=== PATIENT | female | born 1955 | race Caucasian/White ===

== ENCOUNTER → 2020-01-09 | Outpatient (CLI) | payer OTHER ==
--- NOTE | 2020-01-09 12:52 | Diagnostic Imaging Report ---
INDICATION: Cough and congestion. PA and lateral views of the chest were obtained. No prior examinations are available for comparison. FINDINGS: There is cardiomegaly. There is a small hiatal hernia. There is no pleural effusion, pneumothorax, or pneumonia. Mediastinum is unremarkable. There is moderate thoracic spondylosis. IMPRESSION: No acute cardiopulmonary abnormality. Cardiomegaly. Small hiatal hernia. Dictated by: Dictated on workstation # [id number]
== END ==
LOC: RAD FS 12:37
PROVIDERS: ATTEND Nurse Practitioner Family
DX: I51.7 Cardiomegaly (principal); K44.9 Diaphragmatic hernia without obstruction or gangrene; R09.89 Other specified symptoms and signs involving the circulatory and respiratory systems
CPT/HCPCS: 71046

== ENCOUNTER → 2020-02-08 | Outpatient (CLI) | payer OTHER | LOC: CARD 13:20 | PROVIDERS: ATTEND Nurse Practitioner Family | DX: I51.7 Cardiomegaly (principal); I35.0 Nonrheumatic aortic (valve) stenosis | CPT/HCPCS: 93306 ==

== ENCOUNTER 2020-11-02 15:09 | Inpatient (IN) | payer OTHER ==
[~2020-11-02] VITALS: Ht 170 cm; Wt 93.8 kg
--- NOTE | 2020-11-02 15:47 | ED Respiratory ---
General Chief Complaint: Respiratory Problems Stated Complaint: COVID+, LOW O2 STATS Source: patient Exam Limitations: no limitations History of Present Illness Date Seen by Provider: Nov 02, 2020 Time Seen by Provider: 15:30 Initial Comments Patient is a 65-year-old female who presents to the emergency department today with a chief complaint of cough and shortness of breath. Patient has a history of recent diagnosis of coronavirus. Patient states she tested positive this morning. Patient states she has had symptoms for approximately a week to 2 weeks. Patient is short of breath primarily with activity. She has not had fevers or chills. Denies loss of taste or smell. Denies sore throat runny nose congestion. Has had mild cough. Denies any other GI or symptoms. All other review of systems reviewed and negative except as stated. Timing/Duration: week, getting worse Severity: moderate Prior Episodes/Possible Cause: illness exposure Modifying Factors: Worse With Coughing; Improves With Rest Associated Symptoms: cough Allergies and Home Medications Allergies Coded Allergies: No Known Drug Allergies (Unverified , 11/02/20) Home Medications Atorvastatin Calcium 40 Mg Tablet, 40 MG PO DAILY, (Reported) Azithromycin 250 Mg Tablet, 250 MG PO UD, (Reported) TAKE 2 TABLETS ON DAY ONE THEN TAKE 1 TABLET DAILY FOR FOUR MORE DAYS Dexamethasone 6 Mg Tablet, 6 MG PO DAILY, (Reported) Esomeprazole Magnesium 20 Mg Capsule.dr, 20 MG PO DAILY, (Reported) Glipizide 5 Mg Tablet, 5 MG PO BID, (Reported) Levothyroxine Sodium 125 Mcg Capsule, 125 MCG PO DAILY, (Reported) Metformin HCl 1,000 Mg Tablet, 1,000 MG PO TIDWM, (Reported) Pregabalin 50 Mg Capsule, 50 MG PO DAILY, (Reported) Ropinirole HCl 1 Mg Tablet, 3 MG PO HS, (Reported) Patient Home Medication List Home Medication List Reviewed: Yes Review of Systems Review of Systems Constitutional: see HPI; No fever EENTM: No nose congestion, No throat pain Respiratory: cough, short of breath Cardiovascular: no symptoms reported Gastrointestinal: no symptoms reported Genitourinary: no symptoms reported Musculoskeletal: no symptoms reported Skin: no symptoms reported All Other Systems Reviewed Negative Unless Noted: Yes Physical Exam Vital Signs - First Documented 11/02/20 15:35 Temp 38.1 Pulse 125 Resp 28 B/P (MAP) 143/94 (110) Capillary Refill : Height: '" Weight: lbs. oz. kg; BMI Method: General Appearance: WD/WN, no apparent distress Eyes: Bilateral Eye Normal Inspection, Bilateral Eye PERRL, Bilateral Eye EOMI HEENT: pharynx normal Neck: full range of motion Respiratory: lungs clear, normal breath sounds, no respiratory distress, other (Slightly diminished breath sounds at the bases, patient's oxygen saturations 87 to 90% on room air) Cardiovascular: regular rate, rhythm, no murmur Gastrointestinal: normal bowel sounds, non tender, soft Neurologic/Psychiatric: alert, normal mood/affect, oriented x 3 Skin: normal color, warm/dry Focused Exam Lactate Level 11/02/20 15:50: Lactic Acid Level 1.78 Lactic Acid Level Laboratory Tests Test 11/02/20 15:50 Lactic Acid Level 1.78 MMOL/L (0.50-2.00) Progress/Results/Core Measures Suspected Sepsis SIRS Temperature: Pulse: Respiratory Rate: Laboratory Tests 11/02/20 15:50: White Blood Count 6.5 Blood Pressure / Mean: 11/02/20 15:50: Lactic Acid Level 1.78 Laboratory Tests 11/02/20 15:50: Creatinine 0.86, Platelet Count 263 Results/Orders Lab Results Laboratory Tests Test 11/02/20 15:50 Range/Units White Blood Count 6.5 4.3-11.0 10^3/uL Red Blood Count 4.77 3.80-5.11 10^6/uL Hemoglobin 12.3 11.5-16.0 g/dL Hematocrit 39 35-52 % Mean Corpuscular Volume 81 80-99 fL Mean Corpuscular Hemoglobin 26 25-34 pg Mean Corpuscular Hemoglobin Concent 32 32-36 g/dL Red Cell Distribution Width 14.6 H 10.0-14.5 % Platelet Count 263 130-400 10^3/uL Mean Platelet Volume 10.0 9.0-12.2 fL Immature Granulocyte % (Auto) 2 % Neutrophils (%) (Auto) 88 H 42-75 % Lymphocytes (%) (Auto) 6 L 12-44 % Monocytes (%) (Auto) 4 0-12 % Eosinophils (%) (Auto) 0 0-10 % Basophils (%) (Auto) 0 0-10 % Neutrophils # (Auto) 5.7 1.8-7.8 10^3/uL Lymphocytes # (Auto) 0.4 L 1.0-4.0 10^3/uL Monocytes # (Auto) 0.3 0.0-1.0 10^3/uL Eosinophils # (Auto) 0.0 0.0-0.3 10^3/uL Basophils # (Auto) 0.0 0.0-0.1 10^3/uL Immature Granulocyte # (Auto) 0.1 0.0-0.1 10^3/uL Neutrophils % (Manual) 97 % Lymphocytes % (Manual) 1 % Monocytes % (Manual) 2 % Eosinophils % (Manual) 0 % Basophils % (Manual) 0 % Band Neutrophils 0 % Blood Morphology Comment NORMAL D-Dimer < 0.27 0.00-0.49 UG/ML Sodium Level 131 L 135-145 MMOL/L Potassium Level 4.1 3.6-5.0 MMOL/L Chloride Level 99 98-107 MMOL/L Carbon Dioxide Level 20 L 21-32 MMOL/L Anion Gap 12 5-14 MMOL/L Blood Urea Nitrogen 15 7-18 MG/DL Creatinine 0.86 0.60-1.30 MG/DL Estimat Glomerular Filtration Rate > 60 BUN/Creatinine Ratio 17 Glucose Level 462 *H 70-105 MG/DL Lactic Acid Level 1.78 0.50-2.00 MMOL/L Calcium Level 7.8 L 8.5-10.1 MG/DL C-Reactive Protein High Sensitivity 1.31 H 0.00-0.50 MG/DL Procalcitonin 0.04 <0.10 NG/ML Micro Results Microbiology 11/02/20 Blood Culture - Preliminary, Resulted No growth 11/02/20 Blood Culture - Preliminary, Resulted No growth My Orders Orders - FELIBERTO HERNÁNDEZ MD Ed Iv/Invasive Line Start (11/02/20 15:48) Cbc With Automated Diff (11/02/20 15:48) Basic Metabolic Panel (11/02/20 15:48) Hs C Reactive Protein (11/02/20 15:48) Fibrin Degradation Products (11/02/20 15:48) Procalcitonin (Pct) (11/02/20 15:48) Chest 1 View, Ap/Pa Only (11/02/20 15:48) Blood Culture (11/02/20 15:48) Lactic Acid Analyzer (11/02/20 15:48) Blood Culture (11/02/20 16:10) Manual Differential (11/02/20 15:50) Ns Iv 1000 Ml (Sodium Chloride 0.9%) (11/02/20 17:15) Vital Signs/I&O 11/02/20 15:35 Temp 38.1 Pulse 125 Resp 28 B/P (MAP) 143/94 (110) Capillary Refill : Progress Note : Time: 16:37 Progress Note Reevaluated, she is satting 92 to 93% on 2 L of oxygen per nasal cannula. She looks well. She became quite dyspneic when she got up to go to the bathroom dropping her sats to 83%. Chest x-ray is consistent with patchy bilateral infiltrates, pneumonia. Labs so far have been within normal limits. Diagnostic Imaging Diagonstic Imaging: Xray Plain Films/CT/US/NM/MRI: chest Comments [facility], [facility]. [place], [place] NAME: ADRIÁN AMARO [facility] REC#: [id number] PT STATUS: REG ER : 1955 PHYSICIAN: FELIBERTO HERNÁNDEZ MD ADMIT DATE: 11/02/20/ER Draft Date of Exam:11/02/20 CHEST 1 VIEW, AP/PA ONLY INDICATION: COVID-positive patient with increasing shortness of breath. TECHNIQUE: Frontal chest obtained at 04:07 p.m. and compared to 01/09/2020. FINDINGS: Heart is mildly enlarged. There are patchy infiltrates in both lungs, suspicious for COVID pneumonia. There is no pneumothorax or pleural fluid collection. IMPRESSION: Patchy infiltrates are seen in both lungs, right worse than left, suspicious for COVID pneumonia. There is no pneumothorax or pleural fluid. There is cardiomegaly. Dictated on workstation # [id number] Dict: 11/02/20 1606 Trans: 11/02/20 1614 [id number] [id number] Interpreted by: MOOSE TAYLOR MD Electronically signed by: Departure Communication (Admissions) Time/Spoke to Admitting Phy: 17:[address] Monk, will accept patient to medical floor Impression Primary Impression: COVID-19 Additional Impressions: Pneumonia Qualified Codes: J18.9 - Pneumonia, unspecified organism Hypoxia Disposition: ADMITTED INPATIENT Condition: Stable Admissions Decision to Admit Reason: Admit from ER (General) Decision to Admit/Date: Nov 02, 2020 Time/Decision to Admit Time: 17:08 Departure-Patient Inst. Referrals: [facility] (PCP) Primary Care Physician KIRSTIE ESCALANTE APRN (Family) Primary Care Physician FELIBERTO HERNÁNDEZ MD Nov 02, 2020 15:47
[2020-11-02 16:10] LABS: BASOPHILS % (AUTO) 0 % (0-10); EOSINOPHILS % (AUTO) 0 % (0-10); HEMATOCRIT 39 % (35-52); HEMOGLOBIN 12.3 g/dL (11.5-16.0); LYMPHOCYTES # (AUTO) 0.4 10^3/uL (1.0-4.0); LYMPHOCYTES % (AUTO) 6 % (12-44); MEAN CORPUSCULAR HEMOGLOBIN 26 pg (25-34); MEAN CORPUSCULAR HGB CONC 32 g/dL (32-36); MEAN CORPUSCULAR VOLUME 81 fL (80-99); MONOCYTES # (AUTO) 0.3 10^3/uL (0.0-1.0); MONOCYTES % (AUTO) 4 % (0-12); NEUTROPHILS # (AUTO) 5.7 10^3/uL (1.8-7.8); NEUTROPHILS % (AUTO) 88 % (42-75); PLATELET COUNT 263 10^3/uL (130-400); WHITE BLOOD COUNT 6.5 10^3/uL (4.3-11.0)
--- NOTE | 2020-11-02 16:10 | NUR ---
O2 SAT DOWN TO 83% ON RA WHEN UP TO BATHROOM
--- NOTE | 2020-11-02 16:15 | Diagnostic Imaging Report ---
INDICATION: COVID-positive patient with increasing shortness of breath. TECHNIQUE: Frontal chest obtained at 04:07 p.m. and compared to 01/09/2020. FINDINGS: Heart is mildly enlarged. There are patchy infiltrates in both lungs, suspicious for COVID pneumonia. There is no pneumothorax or pleural fluid collection. IMPRESSION: Patchy infiltrates are seen in both lungs, right worse than left, suspicious for COVID pneumonia. There is no pneumothorax or pleural fluid. There is cardiomegaly. Dictated by: Dictated on workstation # [id number]
[2020-11-02 16:19] LABS: CHLORIDE 99 MMOL/L (98-107); POTASSIUM 4.1 MMOL/L (3.6-5.0); SODIUM 131 MMOL/L (135-145)
[2020-11-02 16:21] LABS: CALCIUM 7.8 MG/DL (8.5-10.1)
[2020-11-02 16:23] LABS: CARBON DIOXIDE 20 MMOL/L (21-32)
[2020-11-02 16:25] LABS: CREATININE SERUM 0.86 MG/DL (0.60-1.30); GFR ESTIMATED > 60
[2020-11-02 16:26] LABS: BUN/CREATININE RATIO 17
[2020-11-02 16:29] LABS: GLUCOSE 462 MG/DL (70-105)
[2020-11-02 16:30] LABS: BAND NEUTROPHILS 0 %; BASOPHILS % (MANUAL) 0 %; EOSINOPHILS % (MANUAL) 0 %; LYMPHOCYTES % (MANUAL) 1 %; MONOCYTES % (MANUAL) 2 %; NEUTROPHILS % (MANUAL) 97 %; RBC MORPH NORMAL
[2020-11-02] MEDS ORDERED: ACETAMINOPHEN 325 MG TABLET PO PRN (17:15)
[2020-11-02] MEDS ORDERED: REMDESIVIR INJ 200 MG in NS (IVPB) 210 ML IV ONE (17:15)
[2020-11-02] MEDS ORDERED: ONDANSETRON 4 MG/5 ML ORAL SOLN (ZOFRAN) 5 ML PO PRN (17:15)
[2020-11-02] MEDS: NS IV 1000 ML 1,000 ML IV SCH (17:28)
[2020-11-02 18:37] VITALS: BP 140/81
--- NOTE | 2020-11-02 18:37 | NUR ---
PT ADMITTED TO ROOM 424 AT THIS TIME. 95% ON 3LNC. ORIENTED PT TO ROOM
[2020-11-02] MEDS: guaiFENesin SYRUP 100 MG/5 ML 10 ML (ROBITUSSIN SF) PO SCH ×2 (19:02→21:58)
[2020-11-02] MEDS: ENOXAPARIN 40 MG/0.4 ML (LOVENOX) SYR SC SCH (19:02)
[2020-11-02 19:20] VITALS: BP 140/81
[2020-11-02 20:00] VITALS: BP 117/64
[2020-11-02] MEDS: inSUlin ASPART (NovoLOG) 1 UNIT/0.01 ML (CHARGE PER UNIT) SC SCH (21:42)
[2020-11-02] MEDS ORDERED: RT-ALBUTEROL INHALER HFA (VENTOLIN HFA) 18 GM IH PRN (22:00)
[2020-11-02] MEDS: RT-ALBUTEROL INHALER HFA (VENTOLIN HFA) 18 GM IH SCH (22:40)
[2020-11-02 23:21] VITALS: BP 128/64
[2020-11-03] MEDS: guaiFENesin SYRUP 100 MG/5 ML 10 ML (ROBITUSSIN SF) PO SCH ×6 (00:30→21:15)
[2020-11-03] MEDS: RT-ALBUTEROL INHALER HFA (VENTOLIN HFA) 18 GM IH SCH ×6 (02:15→21:16)
[2020-11-03 04:27] VITALS: BP 154/81
[2020-11-03] MEDS: NS IV 1000 ML 1,000 ML IV SCH ×2 (04:30→13:15)
[2020-11-03] MEDS ORDERED: METF-399 PO (05:13)
[2020-11-03] MEDS ORDERED: DEXA6TAB PO (05:13)
[2020-11-03] MEDS ORDERED: ESOM20CA37 PO (05:13)
[2020-11-03] MEDS ORDERED: LEVO125C4 PO (05:13)
[2020-11-03] MEDS ORDERED: ATOR40TA70 PO (05:13)
[2020-11-03] MEDS ORDERED: AZIT250T12 PO (05:13)
[2020-11-03] MEDS ORDERED: ROPI1TAB PO (05:13)
[2020-11-03] MEDS ORDERED: GLIP5TAB13 PO (05:13)
[2020-11-03] MEDS ORDERED: PREG50CA65 PO (05:13)
[2020-11-03 05:42] LABS: ALBUMIN 3.3 GM/DL (3.2-4.5); CHLORIDE 100 MMOL/L (98-107); POTASSIUM 3.6 MMOL/L (3.6-5.0); SODIUM 133 MMOL/L (135-145)
[2020-11-03 05:43] LABS: CALCIUM 8.2 MG/DL (8.5-10.1)
[2020-11-03 05:44] LABS: GLUCOSE 260 MG/DL (70-105); TOTAL PROTEIN 5.7 GM/DL (6.4-8.2)
[2020-11-03 05:46] LABS: BILIRUBIN,TOTAL 0.5 MG/DL (0.1-1.0); CARBON DIOXIDE 23 MMOL/L (21-32)
[2020-11-03 05:48] LABS: ALKALINE PHOSPHATASE 65 U/L (40-136); CREATININE SERUM 0.78 MG/DL (0.60-1.30); GFR ESTIMATED > 60
[2020-11-03 05:49] LABS: BUN/CREATININE RATIO 14
[2020-11-03 05:51] LABS: ALANINE AMINOTRANSFERASE 29 U/L (0-55)
[2020-11-03] MEDS: inSUlin ASPART (NovoLOG) 1 UNIT/0.01 ML (CHARGE PER UNIT) SC SCH ×3 (06:11→21:15)
[2020-11-03 08:25] VITALS: BP 128/60
[2020-11-03] MEDS: dexAMETHasone 6 MG TAB (DECADRON) PO SCH (08:31)
[2020-11-03 11:20] VITALS: BP 138/67
[2020-11-03] MEDS ORDERED: inSUlin ASPART (NovoLOG) 1 UNIT/0.01 ML (CHARGE PER UNIT) SC SCH (15:45)
--- NOTE | 2020-11-03 15:49 | History & Physical-Hospitalist ---
History of Present Illness HPI/Chief Complaint Amber Merlos is a 65-year-old female with past medical history of type II diabetes mellitus, hyperlipidemia, hypothyroidism, restless leg syndrome, GERD, obesity, who presented with shortness of breath. She had been diagnosed with COVID this past week with her symptoms starting about a week ago. She reports cough. She is not having fevers. She is not having chest pain. She is not having diarrhea. She denies any abdominal pain, nausea, or vomiting. We discussed treatments for COVID and she stated "I don't want to be on any experimental drugs." She declines a Remdesivir and convalescent plasma. Source: patient Exam Limitations: no limitations Date Seen 11/03/20 Time Seen by a Provider: 11:55 Attending Physician Tosin George MD [facility] Referring Physician Date of Admission Nov 02, 2020 at 17:10 Home Medications & Allergies Home Medications Reviewed patient Home Medication Reconciliation performed by pharmacy medication reconciliations software validation technician and/or nursing. Patients Allergies have been reviewed. Allergies Allergies Coded Allergies No Known Drug Allergies (Qqrmvmcray23/11/20) Past Kyelsfw-Ndphji-Weqhpv Hx Past Med/Social Hx: Reviewed Nursing Past Med/Soc Hx Patient Social History Alcohol Use: Denies Use Recreational Drug Use: No Smoking Status: Former Smoker Recent Foreign Travel: No Contact w/other who traveled: No Recent Hopitalizations: No Recent Infectious Disease Expo: Yes (AROUND DAUGHTER WEEK BEFORE DAUGHTER TESTED + COVID 3 WEEKS AGO) Immunizations Up To Date Date of Pneumonia Vaccine: Jun 23, 2020 Date of Influenza Vaccine: Sep 05, 2020 Seasonal Allergies Seasonal Allergies: Yes Past Medical History Surgeries: Hysterectomy Cardiac: Hypertension Gastrointestinal: Gastroesophageal Reflux Endocrine: Hypothyroidsim, Diabetes, Non-Insulin dep Review of Systems Constitutional: malaise EENTM: no symptoms reported Respiratory: cough, short of breath Cardiovascular: no symptoms reported Gastrointestinal: no symptoms reported Genitourinary: no symptoms reported Musculoskeletal: no symptoms reported Skin: no symptoms reported Psychiatric/Neurological: No Symptoms Reported Physical Exam Physical Exam Vital Signs Vital Signs - First Documented 11/02/20 11/02/20 11/02/20 15:35 18:14 18:37 Temp 38.1 Pulse 125 Resp 28 B/P (MAP) 143/94 (110) Pulse Ox 93 O2 Delivery Nasal Cannula O2 Flow Rate 3.00 Capillary Refill : Less Than 3 SecondsLess Than 3 Seconds Height, Weight, BMI Height: '" Weight: lbs. oz. kg; 32.45 BMI Method: General Appearance: No Apparent Distress, Obese HEENT: PERRL/EOMI, Pharynx Normal Neck: Normal Inspection, Supple Respiratory: Lungs Clear, Normal Breath Sounds, No Respiratory Distress Cardiovascular: Regular Rate, Rhythm, No Edema, No Murmur Gastrointestinal: Normal Bowel Sounds, Non Tender, Soft Extremity: Normal Inspection, Non Tender, No Pedal Edema Neurologic/Psychiatric: Alert, Oriented x3, No Motor/Sensory Deficits, Normal Mood/Affect Results Results/Procedures Labs Laboratory Tests 11/02/20 15:50 11/03/20 05:20 Patient resulted labs reviewed. Imaging: Reviewed Imaging Report Assessment/Plan Admission Diagnosis acute respiratory failure due to COVID-19 Admission Status: Inpatient Order (span 2 midnights) Reason for Inpatient Admission: Respiratory failure requiring supplemental oxygen Assessment and Plan Acute respiratory failure due to COVID-19 COVID positive at outside facility Obtain flu swab Chest x-ray with patchy bilateral infiltrates Procalcitonin within normal limits, antibiotics not indicated D-dimer negative, prophylactic Lovenox ordered Started on Decadron Patient declines Remdesivir Patient declines convalescent plasma T2DM Steroid induced hyperglycemia Levemir Sliding scale insulin HLD Hypothyroidism Restless legs syndrome GERD Continue home meds Obesity Clinically significant, no acute management needs DVT Prophylaxis: Lovenox Diagnosis/Problems Diagnosis/Problems (1) Acute respiratory failure due to COVID-19 Status: Acute (2) Pneumonia due to COVID-19 virus Status: Acute (3) T2DM (type 2 diabetes mellitus) Status: Chronic (4) Steroid-induced hyperglycemia Status: Acute (5) HLD (hyperlipidemia) Status: Chronic (6) GERD (gastroesophageal reflux disease) Status: Chronic (7) RLS (restless legs syndrome) Status: Chronic (8) Hypothyroidism Status: Chronic (9) Obesity Status: Chronic Clinical Quality Measures DVT/VTE Risk/Contraindication: Risk Factor Score Per Nursin RFS Level Per Nursing on Admit: 3=High TOSIN GEORGE MD Nov 03, 2020 15:49
[2020-11-03 15:50] VITALS: BP 125/77
[2020-11-03] MEDS: ENOXAPARIN 40 MG/0.4 ML (LOVENOX) SYR SC SCH (17:05)
[2020-11-03] MEDS ORDERED: REMDESIVIR INJ 100 MG in NS (IVPB) 230 ML IV SCH (17:15)
[2020-11-03 19:49] VITALS: BP 127/66
[2020-11-03] MEDS: rOPINIRole 1 MG (REQUIP) TABLET PO SCH (21:15)
[2020-11-03 23:35] VITALS: BP 135/69
--- NOTE | 2020-11-04 | NUR ---
O2 sats around 82% at this time on 5L Hi-wendy NC. O2 increased to 7L and pt encouraged to prone at this time. Will continue to monitor.
[2020-11-04] MEDS: guaiFENesin SYRUP 100 MG/5 ML 10 ML (ROBITUSSIN SF) PO SCH ×7 (01:25→20:41)
[2020-11-04] MEDS: RT-ALBUTEROL INHALER HFA (VENTOLIN HFA) 18 GM IH SCH ×6 (02:07→20:43)
[2020-11-04 04:00] VITALS: BP 145/74
[2020-11-04] MEDS: LEVOTHYROXINE 125 MCG (LEVOTHROID) TABLET PO SCH (05:35)
[2020-11-04] MEDS: inSUlin ASPART (NovoLOG) 1 UNIT/0.01 ML (CHARGE PER UNIT) SC SCH ×4 (05:50→20:41)
[2020-11-04 05:58] LABS: ALBUMIN 3.5 GM/DL (3.2-4.5)
[2020-11-04 05:59] LABS: CHLORIDE 98 MMOL/L (98-107); POTASSIUM 3.7 MMOL/L (3.6-5.0); SODIUM 136 MMOL/L (135-145)
[2020-11-04 06:00] LABS: CALCIUM 8.6 MG/DL (8.5-10.1)
[2020-11-04 06:01] LABS: GLUCOSE 188 MG/DL (70-105); TOTAL PROTEIN 6.2 GM/DL (6.4-8.2)
[2020-11-04 06:02] LABS: CARBON DIOXIDE 23 MMOL/L (21-32)
[2020-11-04 06:03] LABS: BILIRUBIN,TOTAL 0.6 MG/DL (0.1-1.0)
[2020-11-04 06:04] LABS: ALKALINE PHOSPHATASE 61 U/L (40-136); CREATININE SERUM 0.77 MG/DL (0.60-1.30); GFR ESTIMATED > 60
[2020-11-04 06:06] LABS: BUN/CREATININE RATIO 14
[2020-11-04 06:07] LABS: ALANINE AMINOTRANSFERASE 29 U/L (0-55)
[2020-11-04 08:00] VITALS: BP 117/75
[2020-11-04] MEDS: PREGABALIN 50 MG (LYRICA) CAP PO SCH (08:22)
[2020-11-04] MEDS: dexAMETHasone 6 MG TAB (DECADRON) PO SCH (08:22)
[2020-11-04] MEDS: PANTOPRAZOLE 20 MG TABLET (PROTONIX) PO SCH (08:22)
--- NOTE | 2020-11-04 08:30 | NUR ---
O2 SATS MID TO UPPER 80'S. O2 INCREASED TO 12 L WITH LITTLE IMPROVEMENT. RT AND DR. GEORGE NOTIFIED. VAPOTHERM STARTED AT 40L AND 100%. TRANSFERRED TO ROOM 401 FOR NEGATIVE PRESSURE ROOM.
--- NOTE | 2020-11-04 09:30 | NUR ---
STATES FEELING AND BREATHING MUCH BETTER NOW. UP IN CHAIR.
[2020-11-04 11:32] VITALS: BP 147/89
--- NOTE | 2020-11-04 12:00 | NUR ---
DR. GEORGE HERE TO SEE PATIENT. HE LOWERED VAPOTHERM READINGS TO 35L AND 90%. O2 SAT DOWN UPPER 80'S WHEN TALKING ON PHONE, BUT RECUPERATED AFTER REST. SATS STAYING LOW 90'S.
--- NOTE | 2020-11-04 12:15 | NUR ---
PATIENT NOW AGREEABLE TO HAVE PLASMA AND REMDESIVIR.
[2020-11-04] MEDS ORDERED: REMDESIVIR INJ 100 MG in NS (IVPB) 230 ML IV SCH (12:45)
--- NOTE | 2020-11-04 12:53 | Progress Note - Hospitalist ---
Subjective HPI/CC On Admission Date Seen by Provider: Nov 04, 2020 Time Seen by Provider: 11:10 Amber Merlos is a 65-year-old female with past medical history of type II diabetes mellitus, hyperlipidemia, hypothyroidism, restless leg syndrome, GERD, obesity, who presented with shortness of breath. She had been diagnosed with C OVID this past week with her symptoms starting about a week ago. She reports cough. She is not having fevers. She is not having chest pain. She is not having diarrhea. She denies any abdominal pain, nausea, or vomiting. We discussed treatments for COVID and she stated "I don't want to be on any experimental drugs." She declines a Remdesivir and convalescent plasma. Subjective/Events-last exam she had a difficult night. She was very short of breath. She is anxious this morning. She is tearful. She asks about convalescent plasma and other treatments. She has no other complaints or concerns. Focused Exam Lactate Level 11/02/20 15:50: Lactic Acid Level 1.78 Objective Exam Vital Signs Vital Signs Date Time Temp Pulse Resp B/P (MAP) Pulse Ox O2 Delivery O2 Flow Rate FiO2 11/04/20 12:22 90 11/04/20 12:06 91 Vapotherm 35.00 90.00 11/04/20 11:32 36.4 20 147/89 (108) 11/04/20 08:48 100 Capillary Refill : Less Than 3 SecondsLess Than 3 Seconds General Appearance: Anxious, Obese Respiratory: Lungs Clear, Normal Breath Sounds, No Respiratory Distress Cardiovascular: No Murmur, Tachycardia Gastrointestinal: Normal Bowel Sounds, Non Tender, Soft Extremity: Normal Inspection, Non Tender, No Pedal Edema Neurologic/Psychiatric: Alert, No Motor/Sensory Deficits Skin: Normal Color, Warm/Dry Results/Procedures Lab Laboratory Tests 11/04/20 05:05 Patient resulted labs reviewed. Imaging: Reviewed Imaging Report Assessment/Plan Assessment and Plan Assess & Plan/Chief Complaint Acute respiratory failure due to COVID-19 COVID positive at outside facility Flu negative Chest x-ray with patchy bilateral infiltrates Procalcitonin within normal limits x2 D-dimer negative, prophylactic Lovenox ordered Blood cultures with no growth to date Check ABG Continue Decadron Patient agrees to resume Remdesivir Convalescent plasma ordered Begin Cefepime to cover for possible developing bacterial pneumonia Rapidly worsening hypoxia, may require ICU transfer if continues to progress Discussed goals of care, would agree to short term ventilation Offered to call and discuss with family, patient deferred T2DM Steroid induced hyperglycemia Increase Levemir Sliding scale insulin HLD Hypothyroidism Restless legs syndrome GERD Continue home meds Obesity Clinically significant, no acute management needs DVT Prophylaxis: Lovenox Diagnosis/Problems Diagnosis/Problems (1) Acute respiratory failure due to COVID-19 Status: Acute (2) Pneumonia due to COVID-19 virus Status: Acute (3) T2DM (type 2 diabetes mellitus) Status: Chronic (4) Steroid-induced hyperglycemia Status: Acute (5) HLD (hyperlipidemia) Status: Chronic (6) GERD (gastroesophageal reflux disease) Status: Chronic (7) RLS (restless legs syndrome) Status: Chronic (8) Hypothyroidism Status: Chronic (9) Obesity Status: Chronic Clinical Quality Measures DVT/VTE Risk/Contraindication: Risk Factor Score Per Nursin RFS Level Per Nursing on Admit: 3=High SILVER GEORGE MD Nov 04, 2020 12:53
[2020-11-04 13:19] LABS: ABG OXYGEN SATURATION 94 % (94-100); ABG PCO2 34 MMHG (35-45); ABG PH 7.45 (7.37-7.43); ABG PO2 67 MMHG (79-93); ABG TCO2 24.6 MMOL/L (21.0-31.0)
[2020-11-04 13:21] LABS: ALLENS TEST YES-POS; INSPIRED O2 35; PATIENT TEMP 36.4; VENTILATOR NO
--- NOTE | 2020-11-04 13:30 | NUR ---
DR. GEORGE INFORMED OF ABG RESULTS. NO NEW ORDERS.
[2020-11-04] MEDS ORDERED: rOPINIRole 1 MG (REQUIP) TABLET PO ONE (13:45)
[2020-11-04] MEDS: NS IV 500 ML 500 ML IV SCH (15:00)
[2020-11-04] MEDS ORDERED: REMDESIVIR INJ 200 MG in NS (IVPB) 210 ML IV ONE (15:30)
[2020-11-04 15:56] VITALS: BP 128/77
[2020-11-04] MEDS: ENOXAPARIN 40 MG/0.4 ML (LOVENOX) SYR SC SCH (16:34)
--- NOTE | 2020-11-04 17:28 | NUR ---
ORIN IN BLOOD BANK STATES PLASMA MAY BE READY TOMORROW FOR TRANSFUSION. PATIENT NAPPING AND SAT 97%.
[2020-11-04 20:30] VITALS: BP 145/78
[2020-11-04] MEDS: CEFEPIME INJECTION 2,000 MG in WATER (STERILE) FOR INJECTION 20 ML IV SCH (20:42)
[2020-11-04] MEDS: rOPINIRole 1 MG (REQUIP) TABLET PO SCH (20:42)
[2020-11-04 23:43] VITALS: BP 141/68
[2020-11-05] VITALS (9 sets, daily range): BP systolic 115–128; BP diastolic 69–83
[2020-11-05] MEDS: RT-ALBUTEROL INHALER HFA (VENTOLIN HFA) 18 GM IH SCH ×5 (01:45→21:33)
[2020-11-05] MEDS: guaiFENesin SYRUP 100 MG/5 ML 10 ML (ROBITUSSIN SF) PO SCH ×6 (01:45→20:44)
[2020-11-05 05:21] LABS: BASOPHILS % (AUTO) 0 % (0-10); EOSINOPHILS % (AUTO) 0 % (0-10); HEMATOCRIT 38 % (35-52); HEMOGLOBIN 11.9 g/dL (11.5-16.0); LYMPHOCYTES # (AUTO) 0.9 10^3/uL (1.0-4.0); LYMPHOCYTES % (AUTO) 11 % (12-44); MEAN CORPUSCULAR HEMOGLOBIN 26 pg (25-34); MEAN CORPUSCULAR HGB CONC 31 g/dL (32-36); MEAN CORPUSCULAR VOLUME 82 fL (80-99); MONOCYTES # (AUTO) 0.5 10^3/uL (0.0-1.0); MONOCYTES % (AUTO) 6 % (0-12); NEUTROPHILS # (AUTO) 6.6 10^3/uL (1.8-7.8); NEUTROPHILS % (AUTO) 82 % (42-75); PLATELET COUNT 256 10^3/uL (130-400)
[2020-11-05 05:39] LABS: ALBUMIN 3.4 GM/DL (3.2-4.5)
[2020-11-05 05:40] LABS: CHLORIDE 102 MMOL/L (98-107); POTASSIUM 3.9 MMOL/L (3.6-5.0); SODIUM 139 MMOL/L (135-145)
[2020-11-05 05:41] LABS: CALCIUM 8.8 MG/DL (8.5-10.1)
[2020-11-05 05:42] LABS: GLUCOSE 155 MG/DL (70-105); TOTAL PROTEIN 6.3 GM/DL (6.4-8.2)
[2020-11-05 05:43] LABS: CARBON DIOXIDE 24 MMOL/L (21-32)
[2020-11-05 05:44] LABS: BILIRUBIN,TOTAL 0.5 MG/DL (0.1-1.0)
[2020-11-05 05:45] LABS: ALKALINE PHOSPHATASE 55 U/L (40-136)
[2020-11-05 05:46] LABS: CREATININE SERUM 0.72 MG/DL (0.60-1.30); GFR ESTIMATED > 60
[2020-11-05 05:47] LABS: BUN/CREATININE RATIO 17
[2020-11-05 05:49] LABS: ALANINE AMINOTRANSFERASE 23 U/L (0-55)
[2020-11-05] MEDS: inSUlin ASPART (NovoLOG) 1 UNIT/0.01 ML (CHARGE PER UNIT) SC SCH ×4 (06:07→20:44)
[2020-11-05] MEDS: LEVOTHYROXINE 125 MCG (LEVOTHROID) TABLET PO SCH (06:18)
[2020-11-05] MEDS: PANTOPRAZOLE 20 MG TABLET (PROTONIX) PO SCH (08:18)
[2020-11-05] MEDS: dexAMETHasone 6 MG TAB (DECADRON) PO SCH (08:18)
[2020-11-05] MEDS: PREGABALIN 50 MG (LYRICA) CAP PO SCH (08:18)
[2020-11-05] MEDS: CEFEPIME INJECTION 2,000 MG in WATER (STERILE) FOR INJECTION 20 ML IV SCH ×2 (08:18→20:43)
--- NOTE | 2020-11-05 08:27 | Diagnostic Imaging Report ---
INDICATION: COVID pneumonia COMPARISON: 11/02/2020 TECHNIQUE: Single radiograph chest dated 11/05/2020 FINDINGS: The cardiac silhouette remains mildly enlarged. No significant pulmonary vascular congestion. Decreased lung volumes with bilateral pulmonary patchy infiltrates, increased since the prior examination. No significant pleural effusion. No pneumothorax. No acute osseous abnormality. IMPRESSION: Decreased lung volumes with worsening bilateral pulmonary infiltrates concerning for infectious etiology. Mild cardiomegaly without significant pulmonary vascular congestion. Report was faxed to Richard/RN Infection Control by fredy at 8:25AM. Dictated by: Dictated on workstation # [id number]
--- NOTE | 2020-11-05 10:19 | Progress Note - Hospitalist ---
Subjective HPI/CC On Admission Date Seen by Provider: Nov 05, 2020 Time Seen by Provider: 10:30 Amber Merlos is a 65-year-old female with past medical history of type II diabetes mellitus, hyperlipidemia, hypothyroidism, restless leg syndrome, GERD, obesity, who presented with shortness of breath. She had been diagnosed with COVID this past week with her symptoms starting about a week ago. She reports cough. She is not having fevers. She is not having chest pain. She is not having diarrhea. She denies any abdominal pain, nausea, or vomiting. We discussed treatments for COVID and she stated "I don't want to be on any experimental drugs." She declines a Remdesivir and convalescent plasma. Subjective/Events-last exam Pt frustrated because she cant do anything Cough is still present Vapotherm down to 80% Tried to reassure her Checked meds and labs and imaging Review of Systems Pulmonary: Dyspnea, Cough Focused Exam Lactate Level Objective Exam Vital Signs Vital Signs Date Time Temp Pulse Resp B/P (MAP) Pulse Ox O2 Delivery O2 Flow Rate FiO2 11/06/20 03:47 37.2 76 22 136/72 (93) 93 Vapotherm 40.00 100.00 11/05/20 21:33 40 Capillary Refill : Less Than 3 SecondsLess Than 3 Seconds General Appearance: No Apparent Distress, WD/WN, Chronically ill Respiratory: Chest Non Tender, Lungs Clear, No Accessory Muscle Use, No Respiratory Distress, Decreased Breath Sounds Cardiovascular: Regular Rate, Rhythm, No Edema, No Gallop, No JVD, No Murmur, Normal Peripheral Pulses Neurologic/Psychiatric: Alert, Oriented x3, No Motor/Sensory Deficits, Normal Mood/Affect Results/Procedures Lab Patient resulted labs reviewed. Imaging: Reviewed Imaging Report Assessment/Plan Assessment and Plan Assess & Plan/Chief Complaint Acute respiratory failure due to COVID-19 COVID positive at outside facility Obtain flu swab-negative Chest x-ray with patchy bilateral infiltrates Procalcitonin within normal limits, antibiotics not indicated D-dimer negative, prophylactic Lovenox ordered Started on Decadron Patient declines Remdesivir Patient declines convalescent plasma T2DM Steroid induced hyperglycemia Levemir Sliding scale insulin HLD Hypothyroidism Restless legs syndrome GERD Continue home meds Obesity Clinically significant, no acute management needs DVT Prophylaxis: Lovenox Wean Vapotherm Clinical Quality Measures DVT/VTE Risk/Contraindication: Risk Factor Score Per Nursin RFS Level Per Nursing on Admit: 3=High GISSELLE YARBROUGH DO Nov 05, 2020 10:19
[2020-11-05] MEDS ORDERED: DULA1.5P2 SQ (12:30)
[2020-11-05] MEDS ORDERED: FLUT1DIS26 IH (12:30)
[2020-11-05] MEDS ORDERED: MULT-1136 PO (12:30)
[2020-11-05] MEDS ORDERED: IBUP-2473 PO (12:30)
[2020-11-05] MEDS ORDERED: ASPI-1238 PO (12:30)
[2020-11-05] MEDS ORDERED: CLON1TAB13 PO (12:30)
--- NOTE | 2020-11-05 12:43 | NUR ---
SPOKE WITH PTS DAUGHTER (MILLIE) AND GOT A MED LIST FROM [facility] TO COMPLETE THE MED REC FILL DATES FROM [facility]: 05-11-2020 ADVAIR 250/50 #1 08-01-2020 TRULICITY 08-28-2020 CLONAZEPAM 1MG #28/28DS 08-28-2020 METFORMIN 1000MG #90/90DS 09-10-2020 LEVOTHYROXINE 125MCG #90/90DS 10-08-2020 GLIPIZIDE 5MG #180/90DS 10-08-2020 ATORVASTATIN 40MG #90/90DS 10-16-2020 ROPINIROLE 1MG #90/30DS 10-25-2020 PREGABALIN 50MG #28/28DS 11-02-2020 AZITHROMYCIN 250MG #6/5DS 11-02-2020 DEXAMETHASONE 6MG #09/01DS OTC MEDS: [employer] ASPIRIN 81MG IBUPROFEN
--- NOTE | 2020-11-05 14:33 | NUR ---
RD ASSESSMENT PMHx: DM; HLD; hypothyroidism; GERD; PT INTERACTION: Note pt is currently in COVID isolation, per chart review. Note all diet information for nutrition assessment is per Nette RN, or per chart review. Nette states current appetite appears "so-so." Note avg PO intake 58% x2d, per chart review. Nette states no issues with nausea, vomiting, constipation, or diarrhea that she is aware of. Note last BM was 11/04, and pt not currently on bowel regimen per chart review. Note unable to determine recent wt hx, per chart review. Note unable to determine current level of DM management, and unable to determine recent HbA1c, per chart review. ABNORMAL NUTRITION-RELATED LAB VALUES LOW: Pro 6.3; HIGH: glu 155; Est. kcal needs: [id number] kcal | 15-20 kcal/kg Est. Pro needs: 75-94 g Pro | 0.8-1.0 g Pro/kg PES STATEMENT: Inadequate oral intake (NI-2.1) related to loss of appetite as evidenced by chart review and avg PO intake 58% x2d. INTERVENTION: Continue with current diet order of CHO 60g/m 3snack diet. Add Glucerna (vary) with meals TID, for increased kcal intake. Provides 220 kcal and 10 g Pro per serving. Did not offer diet education on DM management d/t isolation precautions. Will continue to follow and reassess as pt needs, intake, and status change. Kolby RANDLE, MS RD LD [phone] cell
[2020-11-05] MEDS: REMDESIVIR INJ 100 MG in NS (IVPB) 230 ML IV SCH (16:43)
[2020-11-05] MEDS: NS IV 500 ML 500 ML IV SCH (16:44)
[2020-11-05] MEDS: ENOXAPARIN 40 MG/0.4 ML (LOVENOX) SYR SC SCH (16:44)
[2020-11-05] MEDS: rOPINIRole 1 MG (REQUIP) TABLET PO PRN (16:44)
[2020-11-05] MEDS: rOPINIRole 1 MG (REQUIP) TABLET PO SCH (21:05)
[2020-11-06] MEDS: guaiFENesin SYRUP 100 MG/5 ML 10 ML (ROBITUSSIN SF) PO SCH ×6 (02:00→20:48)
[2020-11-06] MEDS: RT-ALBUTEROL INHALER HFA (VENTOLIN HFA) 18 GM IH SCH ×6 (03:34→21:05)
[2020-11-06 03:47] VITALS: BP 136/72
[2020-11-06 05:12] LABS: BASOPHILS % (AUTO) 0 % (0-10); EOSINOPHILS % (AUTO) 0 % (0-10); HEMATOCRIT 37 % (35-52); HEMOGLOBIN 11.4 g/dL (11.5-16.0); LYMPHOCYTES # (AUTO) 0.9 10^3/uL (1.0-4.0); LYMPHOCYTES % (AUTO) 11 % (12-44); MEAN CORPUSCULAR HEMOGLOBIN 25 pg (25-34); MEAN CORPUSCULAR HGB CONC 31 g/dL (32-36); MEAN CORPUSCULAR VOLUME 82 fL (80-99); MEAN PLATELET VOLUME 9.8 fL (9.0-12.2); MONOCYTES # (AUTO) 0.6 10^3/uL (0.0-1.0); MONOCYTES % (AUTO) 7 % (0-12); NEUTROPHILS # (AUTO) 6.6 10^3/uL (1.8-7.8); NEUTROPHILS % (AUTO) 81 % (42-75); PLATELET COUNT 276 10^3/uL (130-400); WHITE BLOOD COUNT 8.2 10^3/uL (4.3-11.0)
[2020-11-06 05:25] LABS: ALBUMIN 3.2 GM/DL (3.2-4.5); CHLORIDE 99 MMOL/L (98-107); POTASSIUM 3.6 MMOL/L (3.6-5.0); SODIUM 134 MMOL/L (135-145)
[2020-11-06 05:26] LABS: CALCIUM 8.6 MG/DL (8.5-10.1)
[2020-11-06 05:27] LABS: GLUCOSE 85 MG/DL (70-105); TOTAL PROTEIN 6.2 GM/DL (6.4-8.2)
[2020-11-06 05:28] LABS: CARBON DIOXIDE 24 MMOL/L (21-32)
[2020-11-06 05:29] LABS: BILIRUBIN,TOTAL 0.5 MG/DL (0.1-1.0)
[2020-11-06 05:31] LABS: ALKALINE PHOSPHATASE 58 U/L (40-136); CREATININE SERUM 0.68 MG/DL (0.60-1.30); GFR ESTIMATED > 60
[2020-11-06 05:32] LABS: BUN/CREATININE RATIO 24
[2020-11-06 05:34] LABS: ALANINE AMINOTRANSFERASE 20 U/L (0-55)
--- NOTE | 2020-11-06 05:53 | Progress Note - Hospitalist ---
Subjective HPI/CC On Admission Date Seen by Provider: Nov 06, 2020 Time Seen by Provider: 10:00 Amber Merlos is a 65-year-old female with past medical history of type II diabetes mellitus, hyperlipidemia, hypothyroidism, restless leg syndrome, GERD, obesity, who presented with shortness of breath. She had been diagnosed with C OVID this past week with her symptoms starting about a week ago. She reports cough. She is not having fevers. She is not having chest pain. She is not having diarrhea. She denies any abdominal pain, nausea, or vomiting. We discussed treatments for COVID and she stated "I don't want to be on any experimental drugs." She declines a Remdesivir and convalescent plasma. Subjective/Events-last exam Pt much better Had to go back on max Vapotherm through the night Just had a little bit of a sponge bath and she feels better Agreed to convalescent plasma and Remdesivir and that is maintained right now Bowels are moving well Overall feels like she is better Review of Systems General: Fatigue, Malaise Pulmonary: Dyspnea, Cough Objective Exam Vital Signs Vital Signs Date Time Temp Pulse Resp B/P (MAP) Pulse Ox O2 Delivery O2 Flow Rate FiO2 11/07/20 04:33 36.0 86 20 130/76 (94) 98 Vapotherm 40.00 100.00 11/06/20 21:05 100 Capillary Refill : Less Than 3 SecondsLess Than 3 Seconds General Appearance: No Apparent Distress, WD/WN, Anxious, Chronically ill Respiratory: Chest Non Tender, Lungs Clear, Normal Breath Sounds, No Accessory Muscle Use, No Respiratory Distress, Decreased Breath Sounds Cardiovascular: Regular Rate, Rhythm, No Edema, No Gallop, No JVD, No Murmur, Normal Peripheral Pulses Neurologic/Psychiatric: Alert, Oriented x3, No Motor/Sensory Deficits, Normal Mood/Affect Results/Procedures Lab Laboratory Tests 11/07/20 04:20 Patient resulted labs reviewed. Imaging: Reviewed Imaging Report Assessment/Plan Assessment and Plan Assess & Plan/Chief Complaint Acute respiratory failure due to COVID-19 COVID positive at outside facility Obtain flu swab-negative Chest x-ray with patchy bilateral infiltrates Procalcitonin within normal limits, antibiotics not indicated D-dimer negative, prophylactic Lovenox ordered Maintained on Decadron Patient received Remdesivir Patient received convalescent plasma T2DM Steroid induced hyperglycemia Levemir Sliding scale insulin HLD Hypothyroidism Restless legs syndrome GERD Continue home meds Obesity Clinically significant, no acute management needs DVT Prophylaxis: Lovenox Wean Vapotherm 11/06/20: Continue Vapotherm Monitor closely s/p COVID-19 treatment Clinical Quality Measures DVT/VTE Risk/Contraindication: Risk Factor Score Per Nursin RFS Level Per Nursing on Admit: 3=High GISSELLE YARBROUGH DO Nov 06, 2020 05:53
[2020-11-06] MEDS: inSUlin ASPART (NovoLOG) 1 UNIT/0.01 ML (CHARGE PER UNIT) SC SCH ×4 (06:07→20:44)
[2020-11-06] MEDS: LEVOTHYROXINE 125 MCG (LEVOTHROID) TABLET PO SCH (06:08)
[2020-11-06 08:00] VITALS: BP 121/75
[2020-11-06] MEDS: CEFEPIME INJECTION 2,000 MG in WATER (STERILE) FOR INJECTION 20 ML IV SCH ×2 (08:31→20:47)
[2020-11-06] MEDS: dexAMETHasone 6 MG TAB (DECADRON) PO SCH (08:31)
[2020-11-06] MEDS: PREGABALIN 50 MG (LYRICA) CAP PO SCH (08:31)
[2020-11-06] MEDS: PANTOPRAZOLE 20 MG TABLET (PROTONIX) PO SCH (08:32)
--- NOTE | 2020-11-06 08:47 | Diagnostic Imaging Report ---
INDICATION: Low risk for infection. Portable chest 3:08 AM There are patchy peripheral infiltrates in both lungs. There are no effusions or pneumothoraces. Heart size and pulmonary vascularity are normal. IMPRESSION: Patchy peripheral infiltrates in both lungs consistent with viral pneumonia. No change compared to the previous day. Dictated by: Dictated on workstation # [id number]
[2020-11-06 12:00] VITALS: BP 130/76
[2020-11-06] MEDS: REMDESIVIR INJ 100 MG in NS (IVPB) 230 ML IV SCH (15:58)
[2020-11-06 16:00] VITALS: BP 121/71
[2020-11-06] MEDS: rOPINIRole 1 MG (REQUIP) TABLET PO PRN (17:38)
[2020-11-06] MEDS: ENOXAPARIN 40 MG/0.4 ML (LOVENOX) SYR SC SCH (17:39)
[2020-11-06 20:00] VITALS: BP 105/69
[2020-11-06] MEDS: rOPINIRole 1 MG (REQUIP) TABLET PO SCH (20:47)
[2020-11-07 00:18] VITALS: BP 123/67
[2020-11-07] MEDS: guaiFENesin SYRUP 100 MG/5 ML 10 ML (ROBITUSSIN SF) PO SCH ×6 (01:14→22:41)
[2020-11-07] MEDS: RT-ALBUTEROL INHALER HFA (VENTOLIN HFA) 18 GM IH SCH ×6 (01:17→22:30)
[2020-11-07 04:33] VITALS: BP 130/76
[2020-11-07 04:38] LABS: BASOPHILS % (AUTO) 0 % (0-10); EOSINOPHILS % (AUTO) 0 % (0-10); HEMATOCRIT 37 % (35-52); HEMOGLOBIN 11.8 g/dL (11.5-16.0); LYMPHOCYTES # (AUTO) 1.1 10^3/uL (1.0-4.0); LYMPHOCYTES % (AUTO) 11 % (12-44); MEAN CORPUSCULAR HEMOGLOBIN 26 pg (25-34); MEAN CORPUSCULAR HGB CONC 32 g/dL (32-36); MEAN CORPUSCULAR VOLUME 81 fL (80-99); MEAN PLATELET VOLUME 9.5 fL (9.0-12.2); MONOCYTES # (AUTO) 0.5 10^3/uL (0.0-1.0); MONOCYTES % (AUTO) 6 % (0-12); NEUTROPHILS # (AUTO) 7.9 10^3/uL (1.8-7.8); NEUTROPHILS % (AUTO) 82 % (42-75); PLATELET COUNT 304 10^3/uL (130-400); WHITE BLOOD COUNT 9.7 10^3/uL (4.3-11.0)
[2020-11-07 04:44] LABS: ALBUMIN 3.2 GM/DL (3.2-4.5); CHLORIDE 101 MMOL/L (98-107); POTASSIUM 3.8 MMOL/L (3.6-5.0); SODIUM 136 MMOL/L (135-145)
[2020-11-07 04:45] LABS: CALCIUM 8.9 MG/DL (8.5-10.1)
[2020-11-07 04:46] LABS: GLUCOSE 177 MG/DL (70-105); TOTAL PROTEIN 6.3 GM/DL (6.4-8.2)
[2020-11-07 04:47] LABS: CARBON DIOXIDE 25 MMOL/L (21-32)
[2020-11-07 04:48] LABS: BILIRUBIN,TOTAL 0.5 MG/DL (0.1-1.0)
[2020-11-07 04:50] LABS: ALKALINE PHOSPHATASE 61 U/L (40-136); CREATININE SERUM 0.75 MG/DL (0.60-1.30); GFR ESTIMATED > 60
[2020-11-07 04:51] LABS: BUN/CREATININE RATIO 25
[2020-11-07 04:53] LABS: ALANINE AMINOTRANSFERASE 18 U/L (0-55)
[2020-11-07] MEDS: inSUlin ASPART (NovoLOG) 1 UNIT/0.01 ML (CHARGE PER UNIT) SC SCH ×4 (05:03→22:40)
[2020-11-07] MEDS: LEVOTHYROXINE 125 MCG (LEVOTHROID) TABLET PO SCH (05:28)
[2020-11-07 05:36] LABS: ABG BASE EXCESS 2.4 MMOL/L (-2.5-2.5); ABG OXYGEN SATURATION 97 % (94-100); ABG PCO2 35 MMHG (35-45); ABG PH 7.48 (7.37-7.43); ABG PO2 77 MMHG (79-93); ABG TCO2 27.1 MMOL/L (21.0-31.0)
[2020-11-07 05:38] LABS: ALLENS TEST YES-POS; INSPIRED O2 100%; VENTILATOR NO
[2020-11-07 08:00] VITALS: BP 116/79
[2020-11-07] MEDS: CEFEPIME INJECTION 2,000 MG in WATER (STERILE) FOR INJECTION 20 ML IV SCH ×2 (08:25→22:39)
[2020-11-07] MEDS: PANTOPRAZOLE 20 MG TABLET (PROTONIX) PO SCH (08:26)
[2020-11-07] MEDS: PREGABALIN 50 MG (LYRICA) CAP PO SCH (08:26)
[2020-11-07] MEDS: dexAMETHasone 6 MG TAB (DECADRON) PO SCH (08:26)
--- NOTE | 2020-11-07 08:41 | Diagnostic Imaging Report ---
Portable erect AP chest at 6:05. Indication: Respiratory distress, COVID The appearance of the chest has improved since the prior exam of 11/06/2020 as the left lung base does seem better aerated. The left hemidiaphragm remains obscured however by atelectasis/infiltrate and fluid. The diffuse alveolar/interstitial infiltrates involving both lungs seen previously are otherwise unchanged. The heart is stable in size. The mediastinum is not widened. The osseous structures are intact. Impression: The appearance of the chest has improved as the left lung base does seem better aerated. There is still considerable involvement of both lungs by pneumonia/atelectasis however. A followup study would be recommended for continued evaluation. Dictated by: Dictated on workstation # [id number]
--- NOTE | 2020-11-07 11:54 | NUR ---
CM/SS discharge planning. CM/SS received a message from Eun Leone ([phone]) a Nurse [employer] for [facility] regarding discharge plan. CM/SS attempted to contact Eun parkinson without success. A voice mail was left with call back number. CM/SS will continue to follow.
[2020-11-07 11:56] VITALS: BP 122/74
[2020-11-07] MEDS ORDERED: A & D OINT 113 GM TUBE TOP PRN (13:45)
[2020-11-07] MEDS: REMDESIVIR INJ 100 MG in NS (IVPB) 230 ML IV SCH (14:34)
[2020-11-07] MEDS: ENOXAPARIN 40 MG/0.4 ML (LOVENOX) SYR SC SCH (16:18)
[2020-11-07 20:03] VITALS: BP 128/74
[2020-11-07] MEDS: rOPINIRole 1 MG (REQUIP) TABLET PO SCH (22:40)
[2020-11-08] VITALS: BP 108/65
[2020-11-08] MEDS: guaiFENesin SYRUP 100 MG/5 ML 10 ML (ROBITUSSIN SF) PO SCH ×6 (02:01→22:16)
[2020-11-08] MEDS: RT-ALBUTEROL INHALER HFA (VENTOLIN HFA) 18 GM IH SCH ×6 (02:53→22:16)
[2020-11-08 04:03] VITALS: BP 106/63
[2020-11-08] MEDS ORDERED: inSUlin (REGULAR) HUMAN 1 UNIT/0.01 ML (CHARGE PER UNIT) SC PRN (04:30)
--- NOTE | 2020-11-08 04:54 | Progress Note - Hospitalist ---
Subjective HPI/CC On Admission Date Seen by Provider: Nov 07, 2020 Time Seen by Provider: 10:00 Amber Merlos is a 65-year-old female with past medical history of type II diabetes mellitus, hyperlipidemia, hypothyroidism, restless leg syndrome, GERD, obesity, who presented with shortness of breath. She had been diagnosed with COVID this past week with her symptoms starting about a week ago. She reports cough. She is not having fevers. She is not having chest pain. She is not having diarrhea. She denies any abdominal pain, nausea, or vomiting. We discussed treatments for COVID and she stated "I don't want to be on any experimental drugs." She declines a Remdesivir and convalescent plasma. Subjective/Events-last exam Labs reviewed Vapotherm required increased oxygen Less coughing No fatigue present and she does look a little better today Bowels are moving Review of Systems General: Fatigue, Malaise Pulmonary: Dyspnea, Cough Objective Exam Vital Signs Vital Signs Date Time Temp Pulse Resp B/P (MAP) Pulse Ox O2 Delivery O2 Flow Rate FiO2 11/08/20 04:03 36.5 69 18 106/63 (77) 93 Vapotherm 20.00 50.00 11/08/20 02:53 50 Capillary Refill : Less Than 3 SecondsLess Than 3 Seconds General Appearance: No Apparent Distress, WD/WN, Chronically ill Respiratory: Chest Non Tender, Lungs Clear, Normal Breath Sounds, Accessory Muscle Use, Decreased Breath Sounds Cardiovascular: Regular Rate, Rhythm, No Edema, No Gallop, No JVD, No Murmur, Normal Peripheral Pulses Neurologic/Psychiatric: Alert, Oriented x3, No Motor/Sensory Deficits, Normal Mood/Affect Results/Procedures Lab Patient resulted labs reviewed. Imaging: Reviewed Imaging Report Assessment/Plan Assessment and Plan Assess & Plan/Chief Complaint Acute respiratory failure due to COVID-19 COVID positive at outside facility Obtain flu swab-negative Chest x-ray with patchy bilateral infiltrates Procalcitonin within normal limits, antibiotics not indicated D-dimer negative, prophylactic Lovenox ordered Maintained on Decadron Patient received Remdesivir Patient received convalescent plasma T2DM Steroid induced hyperglycemia Levemir Sliding scale insulin HLD Hypothyroidism Restless legs syndrome GERD Continue home meds Obesity Clinically significant, no acute management needs DVT Prophylaxis: Lovenox Wean Vapotherm 11/06/20: Continue Vapotherm Monitor closely s/p COVID-19 treatment 12/16/20: Continue to wean Vapotherm Monitor O2 sats Reviewed ABG Clinical Quality Measures DVT/VTE Risk/Contraindication: Risk Factor Score Per Nursin RFS Level Per Nursing on Admit: 3=High GISSELLE YARBROUGH DO Nov 08, 2020 04:54
--- NOTE | 2020-11-08 05:52 | Progress Note - Hospitalist ---
Subjective HPI/CC On Admission Date Seen by Provider: Nov 08, 2020 Time Seen by Provider: 10:00 Amber Merlos is a 65-year-old female with past medical history of type II diabetes mellitus, hyperlipidemia, hypothyroidism, restless leg syndrome, GERD, obesity, who presented with shortness of breath. She had been diagnosed with C OVID this past week with her symptoms starting about a week ago. She reports cough. She is not having fevers. She is not having chest pain. She is not having diarrhea. She denies any abdominal pain, nausea, or vomiting. We discussed treatments for COVID and she stated "I don't want to be on any experimental drugs." She declines a Remdesivir and convalescent plasma. Subjective/Events-last exam Labs improved Patient feels better Titraing down on Vapotherm to hopefully NC today Patient denies pain and improved cough stated Review of Systems General: Fatigue, Malaise Pulmonary: Dyspnea, Cough Objective Exam Vital Signs Vital Signs Date Time Temp Pulse Resp B/P (MAP) Pulse Ox O2 Delivery O2 Flow Rate FiO2 11/09/20 04:00 36.2 92 20 123/71 (88) 92 High Flow N/C 15.00 11/08/20 10:23 60 Capillary Refill : Less Than 3 SecondsLess Than 3 Seconds General Appearance: No Apparent Distress, WD/WN, Anxious, Chronically ill Respiratory: Chest Non Tender, Lungs Clear, Normal Breath Sounds, No Accessory Muscle Use, No Respiratory Distress Neurologic/Psychiatric: Alert, Oriented x3, No Motor/Sensory Deficits, Normal Mood/Affect Results/Procedures Lab Laboratory Tests 11/08/20 06:12 11/08/20 07:22 Patient resulted labs reviewed. Imaging: Reviewed Imaging Report Assessment/Plan Assessment and Plan Assess & Plan/Chief Complaint Acute respiratory failure due to COVID-19 COVID positive at outside facility Obtain flu swab-negative Chest x-ray with patchy bilateral infiltrates Procalcitonin within normal limits, antibiotics not indicated D-dimer negative, prophylactic Lovenox ordered Maintained on Decadron Patient received Remdesivir Patient received convalescent plasma T2DM Steroid induced hyperglycemia Levemir Sliding scale insulin HLD Hypothyroidism Restless legs syndrome GERD Continue home meds Obesity Clinically significant, no acute management needs DVT Prophylaxis: Lovenox Wean Vapotherm 11/06/20: Continue Vapotherm Monitor closely s/p COVID-19 treatment 11/07/20: Continue to wean Vapotherm Monitor O2 sats Reviewed ABG 11/08/20: Wean Vapotherm Improved status Clinical Quality Measures DVT/VTE Risk/Contraindication: Risk Factor Score Per Nursin RFS Level Per Nursing on Admit: 3=High GISSELLE YARBROUGH DO Nov 08, 2020 05:52
[2020-11-08] MEDS: inSUlin ASPART (NovoLOG) 1 UNIT/0.01 ML (CHARGE PER UNIT) SC SCH ×4 (06:17→22:25)
[2020-11-08] MEDS: LEVOTHYROXINE 125 MCG (LEVOTHROID) TABLET PO SCH (06:49)
[2020-11-08 07:19] LABS: ALANINE AMINOTRANSFERASE 19 U/L (0-55); ALBUMIN 3.1 GM/DL (3.2-4.5); ALKALINE PHOSPHATASE 66 U/L (40-136); BILIRUBIN,TOTAL 0.5 MG/DL (0.1-1.0); BUN/CREATININE RATIO 27; CALCIUM 8.2 MG/DL (8.5-10.1); CARBON DIOXIDE 23 MMOL/L (21-32); CHLORIDE 103 MMOL/L (98-107); CREATININE SERUM 0.67 MG/DL (0.60-1.30); GFR ESTIMATED > 60; GLUCOSE 69 MG/DL (70-105); POTASSIUM 3.9 MMOL/L (3.6-5.0); SODIUM 137 MMOL/L (135-145); TOTAL PROTEIN 5.9 GM/DL (6.4-8.2)
[2020-11-08 07:25] LABS: BASOPHILS % (AUTO) 0 % (0-10); EOSINOPHILS % (AUTO) 0 % (0-10); HEMATOCRIT 40 % (35-52); HEMOGLOBIN 12.7 g/dL (11.5-16.0); LYMPHOCYTES # (AUTO) 1.3 10^3/uL (1.0-4.0); LYMPHOCYTES % (AUTO) 12 % (12-44); MEAN CORPUSCULAR HEMOGLOBIN 25 pg (25-34); MEAN CORPUSCULAR HGB CONC 32 g/dL (32-36); MEAN CORPUSCULAR VOLUME 80 fL (80-99); MEAN PLATELET VOLUME 9.5 fL (9.0-12.2); MONOCYTES # (AUTO) 0.7 10^3/uL (0.0-1.0); MONOCYTES % (AUTO) 6 % (0-12); NEUTROPHILS # (AUTO) 8.5 10^3/uL (1.8-7.8); NEUTROPHILS % (AUTO) 80 % (42-75); PLATELET COUNT 319 10^3/uL (130-400); WHITE BLOOD COUNT 10.6 10^3/uL (4.3-11.0)
[2020-11-08 08:25] VITALS: BP 121/62
[2020-11-08] MEDS: PANTOPRAZOLE 20 MG TABLET (PROTONIX) PO SCH (11:10)
[2020-11-08] MEDS: CEFEPIME INJECTION 2,000 MG in WATER (STERILE) FOR INJECTION 20 ML IV SCH ×2 (11:10→22:12)
[2020-11-08] MEDS: dexAMETHasone 6 MG TAB (DECADRON) PO SCH (11:10)
[2020-11-08] MEDS: PREGABALIN 50 MG (LYRICA) CAP PO SCH (11:11)
[2020-11-08 12:40] VITALS: BP 116/64
[2020-11-08] MEDS: REMDESIVIR INJ 100 MG in NS (IVPB) 230 ML IV SCH (15:38)
[2020-11-08 16:00] VITALS: BP 121/60
[2020-11-08] MEDS: ENOXAPARIN 40 MG/0.4 ML (LOVENOX) SYR SC SCH (18:28)
[2020-11-08] MEDS: rOPINIRole 1 MG (REQUIP) TABLET PO PRN (18:39)
[2020-11-08 20:05] VITALS: BP 126/71
[2020-11-08] MEDS: rOPINIRole 1 MG (REQUIP) TABLET PO SCH (22:18)
[2020-11-09] VITALS: BP 115/58
[2020-11-09] MEDS: guaiFENesin SYRUP 100 MG/5 ML 10 ML (ROBITUSSIN SF) PO SCH ×6 (01:34→20:03)
[2020-11-09] MEDS: RT-ALBUTEROL INHALER HFA (VENTOLIN HFA) 18 GM IH SCH ×6 (02:27→23:03)
[2020-11-09 04:00] VITALS: BP 123/71
--- NOTE | 2020-11-09 05:42 | Progress Note - Hospitalist ---
Subjective HPI/CC On Admission Date Seen by Provider: Nov 09, 2020 Time Seen by Provider: 10:00 Amber Merlos is a 65-year-old female with past medical history of type II diabetes mellitus, hyperlipidemia, hypothyroidism, restless leg syndrome, GERD, obesity, who presented with shortness of breath. She had been diagnosed with C OVID this past week with her symptoms starting about a week ago. She reports cough. She is not having fevers. She is not having chest pain. She is not having diarrhea. She denies any abdominal pain, nausea, or vomiting. We discussed treatments for COVID and she stated "I don't want to be on any experimental drugs." She declines a Remdesivir and convalescent plasma. Subjective/Events-last exam Patient did not tolerate the decreased O2 Patient seems to be fatiguing CXR improved ABG reviewed COnferred with Dr Cobos and he recommended moving to [facility] Patient tearful about this and she has a lot of anxiety anyway throughout this illness Review of Systems Pulmonary: Dyspnea, Cough Objective Exam Vital Signs Vital Signs Date Time Temp Pulse Resp B/P (MAP) Pulse Ox O2 Delivery O2 Flow Rate FiO2 11/10/20 04:40 37.0 85 16 112/72 (85) 94 Vapotherm 10.00 50.00 11/10/20 02:09 70 Capillary Refill : Less Than 3 SecondsLess Than 3 Seconds General Appearance: No Apparent Distress, WD/WN, Chronically ill Respiratory: Chest Non Tender, Lungs Clear, Accessory Muscle Use, Decreased Breath Sounds Cardiovascular: Regular Rate, Rhythm, No Edema, No Gallop, No JVD, No Murmur, Normal Peripheral Pulses Results/Procedures Lab Laboratory Tests 11/09/20 06:18 11/10/20 02:50 Patient resulted labs reviewed. Imaging: Reviewed Imaging Report Assessment/Plan Assessment and Plan Assess & Plan/Chief Complaint Acute respiratory failure due to COVID-19 COVID positive at outside facility Obtain flu swab-negative Chest x-ray with patchy bilateral infiltrates Procalcitonin within normal limits, antibiotics not indicated D-dimer negative, prophylactic Lovenox ordered Maintained on Decadron Patient received Remdesivir Patient received convalescent plasma T2DM Steroid induced hyperglycemia Levemir Sliding scale insulin HLD Hypothyroidism Restless legs syndrome GERD Continue home meds Obesity Clinically significant, no acute management needs DVT Prophylaxis: Lovenox Wean Vapotherm 11/06/20: Continue Vapotherm Monitor closely s/p COVID-19 treatment 11/07/20: Continue to wean Vapotherm Monitor O2 sats Reviewed ABG 11/08/20: Wean Vapotherm Improved status 11/09/20: Move to [facility] CXR improved but patient appears to be fatiguing Clinical Quality Measures DVT/VTE Risk/Contraindication: Risk Factor Score Per Nursin RFS Level Per Nursing on Admit: 3=High GISSELLE YARBROUGH DO Nov 09, 2020 05:42
--- NOTE | 2020-11-09 05:55 | Diagnostic Imaging Report ---
Indication: Lower respiratory infection Portable chest 5:39 AM There are multifocal patchy alveolar infiltrates in the lungs. The pattern distribution of these similar to exam dated 11/07/2020. Overall there appears be slightly less airspace consolidation. IMPRESSION: Diffuse bilateral pulmonary infiltrates with slight interval improvement over the past 2 days. Dictated by: Dictated on workstation # [id number]
[2020-11-09] MEDS: inSUlin ASPART (NovoLOG) 1 UNIT/0.01 ML (CHARGE PER UNIT) SC SCH ×4 (06:22→20:08)
[2020-11-09] MEDS: LEVOTHYROXINE 125 MCG (LEVOTHROID) TABLET PO SCH (06:29)
[2020-11-09 06:44] LABS: BASOPHILS % (AUTO) 0 % (0-10); EOSINOPHILS % (AUTO) 0 % (0-10); HEMATOCRIT 40 % (35-52); HEMOGLOBIN 12.8 g/dL (11.5-16.0); LYMPHOCYTES # (AUTO) 0.9 10^3/uL (1.0-4.0); LYMPHOCYTES % (AUTO) 10 % (12-44); MEAN CORPUSCULAR HEMOGLOBIN 26 pg (25-34); MEAN CORPUSCULAR HGB CONC 32 g/dL (32-36); MEAN CORPUSCULAR VOLUME 81 fL (80-99); MEAN PLATELET VOLUME 9.3 fL (9.0-12.2); MONOCYTES # (AUTO) 0.6 10^3/uL (0.0-1.0); MONOCYTES % (AUTO) 6 % (0-12); NEUTROPHILS % (AUTO) 82 % (42-75); PLATELET COUNT 260 10^3/uL (130-400); WHITE BLOOD COUNT 9.8 10^3/uL (4.3-11.0)
[2020-11-09 06:52] LABS: ALBUMIN 3.4 GM/DL (3.2-4.5); CHLORIDE 104 MMOL/L (98-107); POTASSIUM 3.8 MMOL/L (3.6-5.0); SODIUM 137 MMOL/L (135-145)
[2020-11-09 06:53] LABS: CALCIUM 9.2 MG/DL (8.5-10.1)
[2020-11-09 06:54] LABS: GLUCOSE 108 MG/DL (70-105)
[2020-11-09 06:55] LABS: TOTAL PROTEIN 6.8 GM/DL (6.4-8.2)
[2020-11-09 06:56] LABS: CARBON DIOXIDE 22 MMOL/L (21-32)
[2020-11-09 06:57] LABS: BILIRUBIN,TOTAL 0.4 MG/DL (0.1-1.0)
[2020-11-09 06:58] LABS: ALKALINE PHOSPHATASE 78 U/L (40-136); CREATININE SERUM 0.71 MG/DL (0.60-1.30); GFR ESTIMATED > 60
[2020-11-09 06:59] LABS: BUN/CREATININE RATIO 23
[2020-11-09 07:01] LABS: ALANINE AMINOTRANSFERASE 22 U/L (0-55)
[2020-11-09 08:00] VITALS: BP 108/74
[2020-11-09 08:02] LABS: ABG BASE EXCESS 0.8 MMOL/L (-2.5-2.5); ABG OXYGEN SATURATION 93 % (94-100); ABG PCO2 31 MMHG (35-45); ABG PO2 65 MMHG (79-93)
[2020-11-09 08:03] LABS: ALLENS TEST POSITIVE; INSPIRED O2 14 L; VENTILATOR NO
[2020-11-09 08:04] LABS: PATIENT TEMP 35.9
[2020-11-09] MEDS: dexAMETHasone 6 MG TAB (DECADRON) PO SCH (10:30)
[2020-11-09] MEDS: PREGABALIN 50 MG (LYRICA) CAP PO SCH (10:31)
[2020-11-09] MEDS: CEFEPIME INJECTION 2,000 MG in WATER (STERILE) FOR INJECTION 20 ML IV SCH (10:31)
[2020-11-09] MEDS: PANTOPRAZOLE 20 MG TABLET (PROTONIX) PO SCH (10:31)
[2020-11-09 12:00] VITALS: BP 135/82
--- NOTE | 2020-11-09 13:17 | NUR ---
Patients O2 sats varied from 83-86% while I was in the room giving medications. To increase oxygen level I had her use her IS, deep breathing, and changed oximeter placement. Sats continued in the mid 80's for greater than 10-15 minutes, her sats then edgar to 90 % on 15 liters HFNC. When talking with patient frequently sounds breathless and o2 sats drop, pt denies feeling SOA. Informed Dr Villarreal who ordered pulmonary consult. After discussing with Dr Cobos he requested patient move to step down unit and return to [facility]. Her sats at this time had risen to 97% however he wanted her moved. When I informed patient she became very upset, crying stating she wants to go home, stated that when talking or moving around her sats drop causing her to be in "trouble", she states if she lays on her side oxygen levels generally rise. I attempted to explain that she wasn't in trouble but moving her was precautionary and allowed closer monitoring. Explained she could very well be back on this floor tomorrow if sats remain in the 90's. Asked if I could call her daughter as she had called but patient told me not to call as it would only stress her (daughter) out, she also denied me calling her . When informed not know what was going on might make family members more stressed she replied, "they'll get over it". Did settle but continues to feel this will delay any discharge plans.
--- NOTE | 2020-11-09 14:19 | NUR ---
Moved to step down unit [id number] at 1415, rprot given to VAL Anguiano.
[2020-11-09 15:48] VITALS: BP 111/69
--- NOTE | 2020-11-09 16:12 | Pulmonary Progress Note ---
Subjective Time Seen by a Provider: 16:04 Sepsis Event Evaluation Height, Weight, BMI Height: '" Weight: lbs. oz. kg; 32.45 BMI Method: Exam Exam Vital Signs Date Time Temp Pulse Resp B/P (MAP) Pulse Ox O2 Delivery O2 Flow Rate FiO2 11/09/20 15:48 106 28 111/69 (83) High Flow N/C 15.00 11/09/20 13:00 105 11/09/20 12:04 94 High Flow N/C 14.00 11/09/20 12:00 37.1 115 20 135/82 (99) 90 High Flow N/C 15.00 11/09/20 08:00 86 High Flow N/C 15.00 11/09/20 08:00 35.5 97 20 108/74 (85) 91 High Flow N/C 15.00 11/09/20 07:51 91 High Flow N/C 14.00 11/09/20 07:00 91 11/09/20 04:00 36.2 92 20 123/71 (88) 92 High Flow N/C 15.00 11/09/20 02:27 97 High Flow N/C 15.00 11/09/20 01:00 75 11/09/20 00:00 36.1 91 20 115/58 (77) 94 High Flow N/C 15.00 11/08/20 22:16 87 High Flow N/C 15.00 11/08/20 20:05 35.8 107 18 126/71 (89) 88 High Flow N/C 15.00 11/08/20 20:00 95 High Flow N/C 15.00 11/08/20 19:30 90 High Flow N/C 15.00 11/08/20 19:00 92 I & O 11/09/20 07:00 Intake Total 1910 ml Output Total 800 ml Balance 1110 ml Height & Weight Height: '" Weight: lbs. oz. kg; 32.45 BMI Method: General Appearance: No Apparent Distress, WD/WN, Anxious, Chronically ill HEENT: PERRL/EOMI, Pharynx Normal Neck: Normal Inspection, Supple Respiratory: Chest Non Tender, Lungs Clear, Normal Breath Sounds, No Accessory Muscle Use, No Respiratory Distress Cardiovascular: Regular Rate, Rhythm, No Edema, No Gallop, No JVD, No Murmur, Normal Peripheral Pulses Capillary Refill: Less Than 3 Seconds Gastrointestinal: normal bowel sounds, non tender, soft Extremity: Normal Inspection, Non Tender, No Pedal Edema Neurologic/Psychiatric: Alert, Oriented x3, No Motor/Sensory Deficits, Normal Mood/Affect Skin: Normal Color, Warm/Dry Results Lab Laboratory Tests 11/08/20 06:12 11/08/20 07:22 11/09/20 06:18 Assessment/Plan Assessment/Plan COVID-19 -Remdesivir -Changed to Vapotherm -Flu is negative -CXR and labs reviewed -PCT WNL -Repeat DDIMER -- increased to 9.93. -Will start theraputic dose lovenox Obesity DM II LESLIE BETH DO Nov 09, 2020 16:12
[2020-11-09] MEDS ORDERED: ENOXAPARIN 40 MG/0.4 ML (LOVENOX) SYR SC SCH (16:15)
[2020-11-09] MEDS: ENOXAPARIN 100 MG/1 ML (LOVENOX) SYR SC SCH (17:30)
[2020-11-09] MEDS: rOPINIRole 1 MG (REQUIP) TABLET PO PRN (17:32)
[2020-11-09] MEDS: rOPINIRole 1 MG (REQUIP) TABLET PO SCH (20:03)
[2020-11-09 20:07] VITALS: BP 121/78
[2020-11-10 01:00] VITALS: BP 111/73
[2020-11-10] MEDS: guaiFENesin SYRUP 100 MG/5 ML 10 ML (ROBITUSSIN SF) PO SCH ×6 (02:07→22:16)
[2020-11-10] MEDS: RT-ALBUTEROL INHALER HFA (VENTOLIN HFA) 18 GM IH SCH ×5 (02:09→22:05)
[2020-11-10 03:03] LABS: BASOPHILS % (AUTO) 0 % (0-10); EOSINOPHILS % (AUTO) 0 % (0-10); HEMATOCRIT 40 % (35-52); HEMOGLOBIN 12.6 g/dL (11.5-16.0); LYMPHOCYTES # (AUTO) 0.9 10^3/uL (1.0-4.0); LYMPHOCYTES % (AUTO) 9 % (12-44); MEAN CORPUSCULAR HEMOGLOBIN 25 pg (25-34); MEAN CORPUSCULAR HGB CONC 32 g/dL (32-36); MEAN CORPUSCULAR VOLUME 80 fL (80-99); MEAN PLATELET VOLUME 9.5 fL (9.0-12.2); MONOCYTES # (AUTO) 0.5 10^3/uL (0.0-1.0); MONOCYTES % (AUTO) 5 % (0-12); NEUTROPHILS # (AUTO) 8.3 10^3/uL (1.8-7.8); NEUTROPHILS % (AUTO) 83 % (42-75); PLATELET COUNT 265 10^3/uL (130-400)
[2020-11-10 03:05] LABS: ALBUMIN 3.3 GM/DL (3.2-4.5); CHLORIDE 101 MMOL/L (98-107); POTASSIUM 3.8 MMOL/L (3.6-5.0); SODIUM 134 MMOL/L (135-145)
[2020-11-10 03:07] LABS: CALCIUM 8.9 MG/DL (8.5-10.1)
[2020-11-10 03:08] LABS: GLUCOSE 159 MG/DL (70-105); TOTAL PROTEIN 6.6 GM/DL (6.4-8.2)
[2020-11-10 03:09] LABS: BILIRUBIN,TOTAL 0.5 MG/DL (0.1-1.0); CARBON DIOXIDE 23 MMOL/L (21-32)
[2020-11-10 03:11] LABS: ALKALINE PHOSPHATASE 72 U/L (40-136); CREATININE SERUM 0.73 MG/DL (0.60-1.30); GFR ESTIMATED > 60
[2020-11-10 03:12] LABS: BUN/CREATININE RATIO 23
[2020-11-10 03:14] LABS: ALANINE AMINOTRANSFERASE 24 U/L (0-55)
[2020-11-10] MEDS: ENOXAPARIN 100 MG/1 ML (LOVENOX) SYR SC SCH ×2 (04:38→17:02)
[2020-11-10 04:40] VITALS: BP 112/72
[2020-11-10] MEDS: inSUlin ASPART (NovoLOG) 1 UNIT/0.01 ML (CHARGE PER UNIT) SC SCH ×4 (05:30→22:25)
--- NOTE | 2020-11-10 05:42 | Pulmonary Progress Note ---
Subjective Time Seen by a Provider: 05:37 Subjective/Events-last exam Pt is currently requiring 50% Vapotherm. Sepsis Event Evaluation Height, Weight, BMI Height: '" Weight: lbs. oz. kg; 32.45 BMI Method: Exam Exam Vital Signs Date Time Temp Pulse Resp B/P (MAP) Pulse Ox O2 Delivery O2 Flow Rate FiO2 11/10/20 04:40 37.0 85 16 112/72 (85) 94 Vapotherm 10.00 50.00 11/10/20 02:09 Vapotherm 10.00 70 11/10/20 01:00 37.3 91 18 111/73 (86) 95 Vapotherm 10.00 70.00 11/10/20 01:00 92 11/09/20 23:52 Vapotherm 10.00 70.00 11/09/20 23:03 99 Vapotherm 10.00 80 11/09/20 20:35 96 Vapotherm 10.00 80 11/09/20 20:07 37.1 99 20 121/78 (92) 96 Vapotherm 10.00 80.00 11/09/20 19:00 101 11/09/20 18:37 98 Vapotherm 10.00 80 11/09/20 16:35 99 Vapotherm 10.00 100 11/09/20 15:48 37.2 106 28 111/69 (83) 96 High Flow N/C 15.00 11/09/20 13:00 105 11/09/20 12:04 94 High Flow N/C 14.00 11/09/20 12:00 37.1 115 20 135/82 (99) 90 High Flow N/C 15.00 11/09/20 08:00 86 High Flow N/C 15.00 11/09/20 08:00 35.5 97 20 108/74 (85) 91 High Flow N/C 15.00 11/09/20 07:51 91 High Flow N/C 14.00 11/09/20 07:00 91 I & O 11/10/20 07:00 Intake Total 1700 ml Balance 1700 ml Height & Weight Height: '" Weight: lbs. oz. kg; 32.45 BMI Method: General Appearance: No Apparent Distress, WD/WN, Chronically ill HEENT: PERRL/EOMI, Pharynx Normal Neck: Normal Inspection, Supple Respiratory: Chest Non Tender, Lungs Clear, Accessory Muscle Use, Decreased Breath Sounds Cardiovascular: Regular Rate, Rhythm, No Edema, No Gallop, No JVD, No Murmur, Normal Peripheral Pulses Capillary Refill: Less Than 3 Seconds Gastrointestinal: normal bowel sounds, non tender, soft Extremity: Normal Inspection, Non Tender, No Pedal Edema Neurologic/Psychiatric: Alert, Oriented x3, No Motor/Sensory Deficits, Normal Mood/Affect Skin: Normal Color, Warm/Dry Results Lab Laboratory Tests 11/08/20 06:12 11/08/20 07:22 11/09/20 06:18 11/10/20 02:50 Assessment/Plan Assessment/Plan COVID-19 -Give lasix 40mg x 1 -Remdesivir -Changed to Vapotherm -Flu is negative -CXR and labs reviewed -PCT WNL -Repeat DDIMER -- increased to 9.93. -Will start theraputic dose lovenox Presumptive PE -Theraputic dose lovenox -Check CTA vs treating with full dose anticoagulation x 3mo for presumed PE -Will order CTA Obesity DM II LESLIE BETH DO Nov 10, 2020 05:42
[2020-11-10] MEDS ORDERED: FUROSEMIDE 40 MG/4 ML INJ (LASIX) IVP ONE (05:45)
[2020-11-10] MEDS: LEVOTHYROXINE 125 MCG (LEVOTHROID) TABLET PO SCH (06:45)
--- NOTE | 2020-11-10 07:25 | Pulmonary Consultation ---
History of Present Illness History of Present Illness Date Seen by Provider: Nov 09, 2020 (Late note) Time Seen by Provider: 16:00 Date of Admission Allergies and Home Medications Allergies Coded Allergies: No Known Drug Allergies (Unverified , 11/02/20) Home Medications Aspirin 81 Mg Tablet.dr, 81 MG PO DAILY, (Reported) Atorvastatin Calcium 40 Mg Tablet, 40 MG PO DAILY, (Reported) Azithromycin 250 Mg Tablet, 250 MG PO DAILY, (Reported) FILLED ON 11-02-2020 #6/5 DAY SUPPLY. Clonazepam 1 Mg Tablet, 1 MG PO HS, (Reported) Dexamethasone 6 Mg Tablet, 6 MG PO DAILY, (Reported) FILLED 11-02-2020 #10/10 DAY SUPPLY Dulaglutide 1.5 Mg/0.5 Ml Pen.injctr, 1.5 MG SQ WED, (Reported) Esomeprazole Magnesium 20 Mg Capsule.dr, 20 MG PO DAILY PRN for HEARTBURN, (Reported) Fluticasone/Salmeterol 1 Each Blst.w.dev, 1 EACH IH BID PRN for SHORTNESS OF BREATH, (Reported) Glipizide 5 Mg Tablet, 5 MG PO BID, (Reported) Ibuprofen 200 Mg Tablet, 800 MG PO Q8H PRN for PAIN-MILD (1-4), (Reported) Levothyroxine Sodium 125 Mcg Capsule, 125 MCG PO DAILY, (Reported) Metformin HCl 1,000 Mg Tablet, 1,000 MG PO DAILY W/ MEAL, (Reported) Multivitamin 1 Each Tablet, 1 EACH PO DAILY, (Reported) Pregabalin 50 Mg Capsule, 50 MG PO DAILY, (Reported) Ropinirole HCl 1 Mg Tablet, 3 MG PO HS, (Reported) Past Treubeb-Sujmhy-Pehupc Hx Past Med/Social Hx: Reviewed Nursing Past Med/Soc Hx Patient Social History Alcohol Use: Denies Use Recreational Drug Use: No Smoking Status: Former Smoker Recent Foreign Travel: No Contact w/Someone Who Travel: No Recent Infectious Disease Expo: Yes (AROUND DAUGHTER WEEK BEFORE DAUGHTER TESTED + COVID 3 WEEKS AGO) Recent Hopitalizations: No Immunizations Up To Date Date of Pneumonia Vaccine: Jun 23, 2020 Date of Influenza Vaccine: Sep 05, 2020 Seasonal Allergies Seasonal Allergies: Yes Past Medical History Hysterectomy Respiratory: Yes Pneumonia Cardiac: Yes Hypertension Neurological: No Genitourinary: No Gastrointestinal: Yes Gastroesophageal Reflux Musculoskeletal: No Endocrine: Yes Hypothyroidsim, Diabetes, Non-Insulin dep HEENT: No Cancer: No Psychosocial: No Integumentary: No Review of Systems Time Seen by Provider: 16:00 Sepsis Event Evaluation Height, Weight, BMI Height: '" Weight: lbs. oz. kg; 32.45 BMI Method: Exam Exam Vital Signs Date Time Temp Pulse Resp B/P (MAP) Pulse Ox O2 Delivery O2 Flow Rate FiO2 11/10/20 04:40 37.0 85 16 112/72 (85) 94 Vapotherm 10.00 50.00 11/10/20 02:09 Vapotherm 10.00 70 11/10/20 01:00 37.3 91 18 111/73 (86) 95 Vapotherm 10.00 70.00 11/10/20 01:00 92 11/09/20 23:52 Vapotherm 10.00 70.00 11/09/20 23:03 99 Vapotherm 10.00 80 11/09/20 20:35 96 Vapotherm 10.00 80 11/09/20 20:07 37.1 99 20 121/78 (92) 96 Vapotherm 10.00 80.00 11/09/20 19:00 101 11/09/20 18:37 98 Vapotherm 10.00 80 11/09/20 16:35 99 Vapotherm 10.00 100 11/09/20 15:48 37.2 106 28 111/69 (83) 96 High Flow N/C 15.00 11/09/20 13:00 105 11/09/20 12:04 94 High Flow N/C 14.00 11/09/20 12:00 37.1 115 20 135/82 (99) 90 High Flow N/C 15.00 11/09/20 08:00 86 High Flow N/C 15.00 11/09/20 08:00 35.5 97 20 108/74 (85) 91 High Flow N/C 15.00 11/09/20 07:51 91 High Flow N/C 14.00 I & O 11/10/20 07:00 Intake Total 1700 ml Balance 1700 ml Height & Weight Height: '" Weight: lbs. oz. kg; 32.45 BMI Method: General Appearance: No Apparent Distress, WD/WN, Chronically ill HEENT: PERRL/EOMI, Pharynx Normal Neck: Normal Inspection, Supple Respiratory: Chest Non Tender, Lungs Clear, Accessory Muscle Use, Decreased Breath Sounds Cardiovascular: Regular Rate, Rhythm, No Edema, No Gallop, No JVD, No Murmur, Normal Peripheral Pulses Capillary Refill: Less Than 3 Seconds Gastrointestinal: normal bowel sounds, non tender, soft Extremity: Normal Inspection, Non Tender, No Pedal Edema Neurologic/Psychiatric: Alert, Oriented x3, No Motor/Sensory Deficits, Normal Mood/Affect Skin: Normal Color, Warm/Dry Results Lab Laboratory Tests 11/09/20 06:18 11/10/20 02:50 Assessment/Plan Assessment/Plan COVID-19 -Pt is requiring increasing amounts of oxygen and has no respiratory reserve. Will move pt to [facility]. She may need ICU care. -Remdesivir -Changed to Vapotherm -Flu is negative -CXR and labs reviewed -PCT WNL -Repeat DDIMER -- increased to 9.93. -Will start theraputic dose lovenox Anxiety Obesity DM II LESLIE BETH DO Nov 10, 2020 07:25
[2020-11-10 07:47] VITALS: BP 106/59
[2020-11-10 08:06] LABS: ABG BASE EXCESS -1.7 MMOL/L (-2.5-2.5); ABG OXYGEN SATURATION 88 % (94-100); ABG PCO2 33 MMHG (35-45); ABG PH 7.44 (7.37-7.43); ABG PO2 63 MMHG (79-93); ABG TCO2 22.9 MMOL/L (21.0-31.0)
[2020-11-10 08:07] LABS: ALLENS TEST YES-POS; INSPIRED O2 50%; VENTILATOR NO
--- NOTE | 2020-11-10 08:42 | Diagnostic Imaging Report ---
CHEST 1 VIEW, AP/PA ONLY Indication: Covid 19 pneumonia Comparison: 11/09/2020 Findings: No change in the bilateral multifocal pulmonary consolidations compatible with Covid 19 pneumonia. No pleural effusion or pneumothorax. Normal cardiomediastinal silhouette. Impression: 1. No change in multifocal consolidations compatible with Covid 19 pneumonia. Dictated by: Dictated on workstation # [id number]
[2020-11-10] MEDS ORDERED: NS 100 ML (IVPB) BAG IV ONE (10:30)
[2020-11-10] MEDS ORDERED: HOLD METFORMIN - RECEIVED CONTRAST 20 ML VIAL IV SCH (10:30)
[2020-11-10] MEDS ORDERED: IOHEXOL 350 MG/ML 100 ML (OMNIPAQUE 350) VIAL IV ONE (10:30)
--- NOTE | 2020-11-10 10:54 | Diagnostic Imaging Report ---
PROCEDURE: CT angiography Chest TECHNIQUE: After intravenous administration of contrast, thin section axial CT angiography of the chest was performed. 3D MIP reconstructions were made. All CT scans use one or more of the following dose optimizing techniques: automated exposure control, MA and/or KvP adjustment based on a patient size and exam type, or iterative reconstruction. INDICATION: Covid 19 pneumonia. COMPARISON: Multiple serial chest radiographs from 11/02/2020 through 11/10/2020. FINDINGS: Vasculature: There are segmental and subsegmental filling defects involving the right lower lobe, right upper lobe and left upper lobe indicative of acute pulmonary emboli. No right ventricular strain or pulmonary hypertension. Thoracic aorta is normal in caliber. No aortic dissection or pseudoaneurysm. Heart and mediastinum: Visualized thyroid is normal. No supraclavicular, axillary, or intra-thoracic lymphadenopathy. The heart is normal in size without pericardial effusion. Large hiatal hernia with approximately half the stomach located in the chest. Pleura: Trace bilateral pleural effusions. No pneumothorax. Lungs and airway: No endoluminal lesion in the trachea or central bronchi. Bilateral multifocal groundglass opacities and consolidations have a typical appearance for Covid 19 pneumonia. No micronodules or cavitary lung mass. No lobar consolidations. Upper abdomen: Allowing for the phase of contrast, no acute abnormality in the upper abdomen is seen. Musculoskeletal: No concerning osseous lesion. IMPRESSION: 1. There is a small burden of acute bilateral pulmonary emboli involving the segmental and subsegmental pulmonary arteries. No features of right ventricular strain or pulmonary hypertension. 2. Pulmonary changes have a typical appearance for Covid 19 pneumonia. Dictated by: Dictated on workstation # [id number]
[2020-11-10] MEDS: dexAMETHasone 6 MG TAB (DECADRON) PO SCH (11:07)
[2020-11-10] MEDS: PREGABALIN 50 MG (LYRICA) CAP PO SCH (11:08)
[2020-11-10] MEDS: PANTOPRAZOLE 20 MG TABLET (PROTONIX) PO SCH (11:08)
[2020-11-10 12:04] VITALS: BP 106/74
--- NOTE | 2020-11-10 13:52 | Progress Note - Hospitalist ---
Subjective HPI/CC On Admission Date Seen by Provider: Nov 10, 2020 Time Seen by Provider: 10:30 Amber Merlos is a 65-year-old female with past medical history of type II diabetes mellitus, hyperlipidemia, hypothyroidism, restless leg syndrome, GERD, obesity, who presented with shortness of breath. She had been diagnosed with COVID this past week with her symptoms starting about a week ago. She reports cough. She is not having fevers. She is not having chest pain. She is not having diarrhea. She denies any abdominal pain, nausea, or vomiting. We discussed treatments for COVID and she stated "I don't want to be on any experimental drugs." She declines a Remdesivir and convalescent plasma. Subjective/Events-last exam Patient tearful CTA and CXR and labs reviewed. CTA results were after rounds and noted PE and Dr Cobos already increased Lovenox to therapeutic dose [id number] Very anxious Review of Systems General: Fatigue, Malaise Pulmonary: Dyspnea, Cough Objective Exam Vital Signs Vital Signs Date Time Temp Pulse Resp B/P (MAP) Pulse Ox O2 Delivery O2 Flow Rate FiO2 11/11/20 04:00 34.2 92 18 101/78 (86) 93 High Flow N/C 5.00 11/10/20 07:46 40 Capillary Refill : Less Than 3 SecondsLess Than 3 Seconds General Appearance: WD/WN, Anxious, Chronically ill, Mild Distress Respiratory: Lungs Clear, Decreased Breath Sounds Cardiovascular: Regular Rate, Rhythm Neurologic/Psychiatric: Alert, Oriented x3, No Motor/Sensory Deficits, Normal Mood/Affect Results/Procedures Lab Patient resulted labs reviewed. Imaging: Reviewed Imaging Report Assessment/Plan Assessment and Plan Assess & Plan/Chief Complaint Acute respiratory failure due to COVID-19 COVID positive at outside facility Obtain flu swab-negative Chest x-ray with patchy bilateral infiltrates Procalcitonin within normal limits, antibiotics not indicated D-dimer negative, prophylactic Lovenox ordered Maintained on Decadron Patient received Remdesivir Patient received convalescent plasma T2DM Steroid induced hyperglycemia Levemir Sliding scale insulin HLD Hypothyroidism Restless legs syndrome GERD Continue home meds Obesity Clinically significant, no acute management needs DVT Prophylaxis: Lovenox PE 11/10/20 Wean Vapotherm 11/06/20: Continue Vapotherm Monitor closely s/p COVID-19 treatment 11/07/20: Continue to wean Vapotherm Monitor O2 sats Reviewed ABG 11/08/20: Wean Vapotherm Improved status 11/09/20: Move to [facility] CXR improved but patient appears to be fatiguing 11/10/20: Lovenox for PE Monitor closely Vapotherm Clinical Quality Measures DVT/VTE Risk/Contraindication: Risk Factor Score Per Nursin RFS Level Per Nursing on Admit: 3=High GISSELLE YARBROUGH DO Nov 10, 2020 13:52
[2020-11-10 15:33] VITALS: BP 101/71
[2020-11-10 20:00] VITALS: BP 110/76
[2020-11-10] MEDS: rOPINIRole 1 MG (REQUIP) TABLET PO SCH (22:15)
[2020-11-11] MEDS: guaiFENesin SYRUP 100 MG/5 ML 10 ML (ROBITUSSIN SF) PO SCH ×6 (01:23→21:37)
[2020-11-11 01:25] VITALS: BP 124/86
[2020-11-11] MEDS: RT-ALBUTEROL INHALER HFA (VENTOLIN HFA) 18 GM IH SCH ×6 (02:32→21:45)
[2020-11-11 04:00] VITALS: BP 101/78
[2020-11-11] MEDS: ENOXAPARIN 100 MG/1 ML (LOVENOX) SYR SC SCH (05:52)
[2020-11-11] MEDS: LEVOTHYROXINE 125 MCG (LEVOTHROID) TABLET PO SCH (05:52)
[2020-11-11] MEDS: inSUlin ASPART (NovoLOG) 1 UNIT/0.01 ML (CHARGE PER UNIT) SC SCH ×4 (06:01→21:38)
--- NOTE | 2020-11-11 07:03 | Pulmonary Progress Note ---
Subjective Time Seen by a Provider: 07:02 Sepsis Event Evaluation Height, Weight, BMI Height: '" Weight: lbs. oz. kg; 32.45 BMI Method: Exam Exam Vital Signs Date Time Temp Pulse Resp B/P (MAP) Pulse Ox O2 Delivery O2 Flow Rate FiO2 11/11/20 04:00 34.2 92 18 101/78 (86) 93 High Flow N/C 5.00 11/11/20 02:32 99 High Flow N/C 7.00 11/11/20 01:25 34.2 92 18 124/86 (99) 92 High Flow N/C 7.00 11/11/20 01:00 86 11/11/20 00:36 105 11/10/20 22:05 97 High Flow N/C 8.00 11/10/20 20:00 94 High Flow N/C 8.00 11/10/20 20:00 36.7 105 27 110/76 (87) 93 High Flow N/C 7.00 10.00 11/10/20 19:00 109 11/10/20 18:54 High Flow N/C 10.00 11/10/20 17:53 High Flow N/C 12.00 11/10/20 15:33 36.7 98 27 101/71 (81) 94 Vapotherm 10.00 45.00 11/10/20 12:48 95 11/10/20 12:04 36.6 89 14 106/74 (85) 100 Vapotherm 10.00 45.00 11/10/20 08:00 94 High Flow N/C 13.00 11/10/20 07:47 36.7 92 27 106/59 (75) 97 Vapotherm 10.00 45.00 11/10/20 07:46 99 Vapotherm 10.00 40 I & O 11/11/20 07:00 Intake Total 3045 ml Balance 3045 ml Height & Weight Height: '" Weight: lbs. oz. kg; 32.45 BMI Method: General Appearance: WD/WN, Anxious, Chronically ill, Mild Distress HEENT: PERRL/EOMI, Pharynx Normal Neck: Normal Inspection, Supple Respiratory: Lungs Clear, Decreased Breath Sounds Cardiovascular: Regular Rate, Rhythm Capillary Refill: Less Than 3 Seconds Gastrointestinal: normal bowel sounds, non tender, soft Extremity: Normal Inspection, Non Tender, No Pedal Edema Neurologic/Psychiatric: Alert, Oriented x3, No Motor/Sensory Deficits, Normal Mood/Affect Skin: Normal Color, Warm/Dry Results Lab Laboratory Tests 11/10/20 02:50 Assessment/Plan Assessment/Plan COVID-19 -Remdesivir -Flu is negative -CXR and labs reviewed -PCT WNL Bilateral PE per CTA -Theraputic dose lovenox currently Obesity DM II LESLIE BETH DO Nov 11, 2020 07:03
--- NOTE | 2020-11-11 07:23 | Progress Note - Hospitalist ---
Subjective HPI/CC On Admission Date Seen by Provider: Nov 11, 2020 Time Seen by Provider: 11:00 Amber Merlos is a 65-year-old female with past medical history of type II diabetes mellitus, hyperlipidemia, hypothyroidism, restless leg syndrome, GERD, obesity, who presented with shortness of breath. She had been diagnosed with C OVID this past week with her symptoms starting about a week ago. She reports cough. She is not having fevers. She is not having chest pain. She is not having diarrhea. She denies any abdominal pain, nausea, or vomiting. We discussed treatments for COVID and she stated "I don't want to be on any experimental drugs." She declines a Remdesivir and convalescent plasma. Subjective/Events-last exam Patient much better Moving to 4th floor if a bed is available Less dyspneic Changed Lovenox to Eliquis No pain Much better spirits Review of Systems Pulmonary: Dyspnea Objective Exam Vital Signs Vital Signs Date Time Temp Pulse Resp B/P (MAP) Pulse Ox O2 Delivery O2 Flow Rate FiO2 11/12/20 04:15 36.0 82 18 126/84 (98) 94 High Flow N/C 7.00 11/10/20 07:46 40 Capillary Refill : Less Than 3 SecondsLess Than 3 Seconds General Appearance: No Apparent Distress, WD/WN, Anxious, Chronically ill Respiratory: Chest Non Tender, Lungs Clear, Normal Breath Sounds, No Accessory Muscle Use, No Respiratory Distress, Decreased Breath Sounds Cardiovascular: Regular Rate, Rhythm, No Edema, No Gallop, No JVD, No Murmur, Normal Peripheral Pulses Neurologic/Psychiatric: Alert, Oriented x3, No Motor/Sensory Deficits, Normal Mood/Affect Results/Procedures Lab Laboratory Tests 11/11/20 07:00 11/12/20 03:41 Patient resulted labs reviewed. Imaging: Reviewed Imaging Report Assessment/Plan Assessment and Plan Assess & Plan/Chief Complaint Acute respiratory failure due to COVID-19 COVID positive at outside facility Obtain flu swab-negative Chest x-ray with patchy bilateral infiltrates Procalcitonin within normal limits, antibiotics not indicated D-dimer negative, prophylactic Lovenox ordered Maintained on Decadron Patient received Remdesivir Patient received convalescent plasma T2DM Steroid induced hyperglycemia Levemir Sliding scale insulin HLD Hypothyroidism Restless legs syndrome GERD Continue home meds Obesity Clinically significant, no acute management needs DVT Prophylaxis: Lovenox PE 11/10/20 Wean Vapotherm 11/06/20: Continue Vapotherm Monitor closely s/p COVID-19 treatment 11/07/20: Continue to wean Vapotherm Monitor O2 sats Reviewed ABG 11/08/20: Wean Vapotherm Improved status 11/09/20: Move to [facility] CXR improved but patient appears to be fatiguing 11/10/20: Lovenox for PE Monitor closely Vapotherm 11/11/20: DC Lovenox Eliquis started Clinical Quality Measures DVT/VTE Risk/Contraindication: Risk Factor Score Per Nursin RFS Level Per Nursing on Admit: 3=High GISSELLE YARBROUGH DO Nov 11, 2020 07:23
[2020-11-11 07:26] LABS: BASOPHILS % (AUTO) 0 % (0-10); EOSINOPHILS # (AUTO) 0.1 10^3/uL (0.0-0.3); EOSINOPHILS % (AUTO) 1 % (0-10); HEMATOCRIT 42 % (35-52); LYMPHOCYTES # (AUTO) 1.3 10^3/uL (1.0-4.0); LYMPHOCYTES % (AUTO) 13 % (12-44); MEAN CORPUSCULAR HEMOGLOBIN 26 pg (25-34); MEAN CORPUSCULAR HGB CONC 31 g/dL (32-36); MEAN CORPUSCULAR VOLUME 82 fL (80-99); MEAN PLATELET VOLUME 9.7 fL (9.0-12.2); MONOCYTES # (AUTO) 0.5 10^3/uL (0.0-1.0); MONOCYTES % (AUTO) 6 % (0-12); NEUTROPHILS # (AUTO) 7.5 10^3/uL (1.8-7.8); NEUTROPHILS % (AUTO) 78 % (42-75); PLATELET COUNT 322 10^3/uL (130-400); WHITE BLOOD COUNT 9.6 10^3/uL (4.3-11.0)
[2020-11-11 07:33] LABS: ABG BASE EXCESS 2.3 MMOL/L (-2.5-2.5); ABG OXYGEN SATURATION 89 % (94-100); ABG PCO2 32 MMHG (35-45); ABG PH 7.51 (7.37-7.43); ABG PO2 57 MMHG (79-93); ABG TCO2 26.4 MMOL/L (21.0-31.0)
[2020-11-11 07:35] LABS: ALLENS TEST YES-POS; INSPIRED O2 10%; PATIENT TEMP 36.3; VENTILATOR NO
[2020-11-11 07:39] LABS: ALANINE AMINOTRANSFERASE 39 U/L (0-55); ALBUMIN 3.4 GM/DL (3.2-4.5); ALKALINE PHOSPHATASE 75 U/L (40-136); BILIRUBIN,TOTAL 0.5 MG/DL (0.1-1.0); BUN/CREATININE RATIO 24; CARBON DIOXIDE 26 MMOL/L (21-32); CHLORIDE 99 MMOL/L (98-107); CREATININE SERUM 0.75 MG/DL (0.60-1.30); GFR ESTIMATED > 60; GLUCOSE 158 MG/DL (70-105); POTASSIUM 3.7 MMOL/L (3.6-5.0); SODIUM 136 MMOL/L (135-145); TOTAL PROTEIN 6.9 GM/DL (6.4-8.2)
[2020-11-11 07:40] VITALS: BP 128/73
--- NOTE | 2020-11-11 08:25 | Diagnostic Imaging Report ---
EXAMINATION: Portable erect AP chest at 6:46 AM INDICATION: Respiratory distress The heart size is stable when compared to the prior exam of 11/10/2020. The alveolar/interstitial pulmonary infiltrates involving both lungs seen previously are again evident and essentially no different. There is still no significant pleural effusion identified. The mediastinum is not widened. The osseous structures are intact. IMPRESSION: Stable chest. There has been no adverse change since the prior exam. Dictated by: Dictated on workstation # [id number]
[2020-11-11] MEDS: PANTOPRAZOLE 20 MG TABLET (PROTONIX) PO SCH (08:34)
[2020-11-11] MEDS: PREGABALIN 50 MG (LYRICA) CAP PO SCH (08:34)
[2020-11-11] MEDS: dexAMETHasone 6 MG TAB (DECADRON) PO SCH (08:34)
[2020-11-11 11:00] VITALS: BP 113/75
[2020-11-11 16:11] VITALS: BP 128/100
[2020-11-11] MEDS: APIXABAN 5 MG (ELIQUIS) TABLET PO SCH (19:08)
[2020-11-11 19:57] VITALS: BP 136/82
[2020-11-11] MEDS: rOPINIRole 1 MG (REQUIP) TABLET PO SCH (21:37)
[2020-11-12] VITALS (7 sets, daily range): BP systolic 110–135; BP diastolic 65–85
[2020-11-12] MEDS: guaiFENesin SYRUP 100 MG/5 ML 10 ML (ROBITUSSIN SF) PO SCH ×6 (01:00→21:11)
[2020-11-12] MEDS: RT-ALBUTEROL INHALER HFA (VENTOLIN HFA) 18 GM IH SCH ×6 (01:10→21:48)
[2020-11-12 04:00] LABS: BASOPHILS % (AUTO) 0 % (0-10); EOSINOPHILS # (AUTO) 0.1 10^3/uL (0.0-0.3); EOSINOPHILS % (AUTO) 1 % (0-10); HEMATOCRIT 40 % (35-52); HEMOGLOBIN 12.4 g/dL (11.5-16.0); LYMPHOCYTES # (AUTO) 1.3 10^3/uL (1.0-4.0); LYMPHOCYTES % (AUTO) 15 % (12-44); MEAN CORPUSCULAR HEMOGLOBIN 25 pg (25-34); MEAN CORPUSCULAR HGB CONC 31 g/dL (32-36); MEAN CORPUSCULAR VOLUME 81 fL (80-99); MEAN PLATELET VOLUME 9.5 fL (9.0-12.2); MONOCYTES # (AUTO) 0.7 10^3/uL (0.0-1.0); MONOCYTES % (AUTO) 8 % (0-12); NEUTROPHILS # (AUTO) 6.3 10^3/uL (1.8-7.8); NEUTROPHILS % (AUTO) 74 % (42-75); PLATELET COUNT 282 10^3/uL (130-400); WHITE BLOOD COUNT 8.6 10^3/uL (4.3-11.0)
[2020-11-12 04:16] LABS: ALBUMIN 3.2 GM/DL (3.2-4.5)
[2020-11-12 04:17] LABS: CHLORIDE 97 MMOL/L (98-107); POTASSIUM 3.6 MMOL/L (3.6-5.0); SODIUM 133 MMOL/L (135-145)
[2020-11-12 04:19] LABS: GLUCOSE 224 MG/DL (70-105); TOTAL PROTEIN 6.5 GM/DL (6.4-8.2)
[2020-11-12 04:20] LABS: CARBON DIOXIDE 23 MMOL/L (21-32)
[2020-11-12 04:21] LABS: BILIRUBIN,TOTAL 0.4 MG/DL (0.1-1.0)
[2020-11-12 04:22] LABS: ALKALINE PHOSPHATASE 71 U/L (40-136)
[2020-11-12 04:23] LABS: CREATININE SERUM 0.81 MG/DL (0.60-1.30); GFR ESTIMATED > 60
[2020-11-12 04:24] LABS: BUN/CREATININE RATIO 21
[2020-11-12 04:25] LABS: ALANINE AMINOTRANSFERASE 45 U/L (0-55)
--- NOTE | 2020-11-12 05:01 | Pulmonary Progress Note ---
Subjective Time Seen by a Provider: 04:58 Subjective/Events-last exam Pt is doing better. Sepsis Event Evaluation Height, Weight, BMI Height: '" Weight: lbs. oz. kg; 32.45 BMI Method: Exam Exam Vital Signs Date Time Temp Pulse Resp B/P (MAP) Pulse Ox O2 Delivery O2 Flow Rate FiO2 11/12/20 04:15 36.0 82 18 126/84 (98) 94 High Flow N/C 7.00 11/12/20 01:58 94 High Flow N/C 5.00 11/12/20 00:33 36.4 96 16 135/85 (102) 91 High Flow N/C 7.00 11/11/20 21:45 High Flow N/C 5.00 11/11/20 21:42 High Flow N/C 7.00 11/11/20 20:00 92 High Flow N/C 6.00 11/11/20 19:57 36.0 78 18 136/82 (100) 93 High Flow N/C 5.00 11/11/20 18:08 91 High Flow N/C 5.00 11/11/20 16:11 36.2 107 22 128/100 (109) 91 High Flow N/C 9.00 11/11/20 14:58 95 High Flow N/C 5.00 11/11/20 13:00 75 11/11/20 11:00 36.4 86 22 113/75 (88) 92 High Flow N/C 5.00 11/11/20 08:00 92 High Flow N/C 5.00 11/11/20 07:40 36.2 92 26 128/73 (91) 96 High Flow N/C 5.00 11/11/20 07:21 92 High Flow N/C 5.00 11/11/20 07:00 96 I & O 11/12/20 07:00 Intake Total 2260 ml Balance 2260 ml Height & Weight Height: '" Weight: lbs. oz. kg; 32.45 BMI Method: General Appearance: No Apparent Distress, WD/WN, Anxious, Chronically ill HEENT: PERRL/EOMI, Pharynx Normal Neck: Normal Inspection, Supple Respiratory: Lungs Clear, Decreased Breath Sounds Cardiovascular: Regular Rate, Rhythm Capillary Refill: Less Than 3 Seconds Gastrointestinal: normal bowel sounds, non tender, soft Extremity: Normal Inspection, Non Tender, No Pedal Edema Neurologic/Psychiatric: Alert, Oriented x3, No Motor/Sensory Deficits, Normal Mood/Affect Skin: Normal Color, Warm/Dry Results Lab Laboratory Tests 11/11/20 07:00 11/12/20 03:41 Assessment/Plan Assessment/Plan COVID-19 -Flu is negative -CXR and labs reviewed Bilateral PE per CTA -Continue Eliquis Obesity DM II LESLIE BETH DO Nov 12, 2020 05:01
[2020-11-12] MEDS: inSUlin ASPART (NovoLOG) 1 UNIT/0.01 ML (CHARGE PER UNIT) SC SCH ×4 (06:23→21:13)
[2020-11-12] MEDS: LEVOTHYROXINE 125 MCG (LEVOTHROID) TABLET PO SCH (06:23)
[2020-11-12] MEDS: APIXABAN 5 MG (ELIQUIS) TABLET PO SCH ×2 (06:24→17:03)
[2020-11-12] MEDS: dexAMETHasone 6 MG TAB (DECADRON) PO SCH (09:08)
[2020-11-12] MEDS: PANTOPRAZOLE 20 MG TABLET (PROTONIX) PO SCH (09:08)
[2020-11-12] MEDS: PREGABALIN 50 MG (LYRICA) CAP PO SCH (09:08)
--- NOTE | 2020-11-12 12:25 | NUR ---
REALLY WANTS TO GO HOME TODAY. 02 AT 6L PER HIGH FLOW NC THIS AM. DR. BEASLEY IN TO SEE PATIENT WITH ORDERS TO TRY AND DECREASE FLOW AMOUNT. O2 TURNED DOWN TO 4L PER RT. SATS OK IF LYING ON SIDE. 80-89% WHEN UP IN THE CHAIR ON 4L. 02 TURNED BACK UP TO 5L... SATS 90-91%.
--- NOTE | 2020-11-12 15:21 | NUR ---
"RD ASSESSMENT PMHx: DM; HLD; hypothyroidism; GERD; PT INTERACTION: Note pt is currently in COVID isolation per chart review. Note all diet information for nutrition follow-up are per Crystal RN or per chart review. Crystal states pt is currently eating well. Note avg PO intake 83% x4d, per chart review. Crystal states no issues with nausea, vomiting, constipation, or diarrhea that she is aware of. Note last BM was 11/09, and pt not currently on bowel regimen per chart review. ABNORMAL NUTRITION-RELATED LAB VALUES LOW: Na 133; Cl 97; HIGH: glu 224; Est. kcal needs: 9712-7250 kcal | 15-20 kcal/kg Est. Pro needs: 75-94 g Pro | 0.8-1.0 g Pro/kg PES STATEMENT: Given current PO intake, no nutrition diagnosis at this time (NO-1.1). INTERVENTION: Continue with current diet order of CHO 60g/m 3snack diet. DC current supplementation order of Glucerna with meals TID. Note avg PO intake >75%. Will continue to follow and reassess as pt needs, intake, and status change. Kolby RANDLE, MS RD LD [phone] cell"
--- NOTE | 2020-11-12 18:11 | Progress Note ---
Subjective Subjective/Events-last exam Patient states that she is feeling much better and desires to go home. Oxygen was turned up last night to 6L HFNC. Tolerating PO diet. Desats to upper 80s with activity. Review of Systems Pulmonary: Dyspnea, Cough Cardiovascular: No: Chest Pain, Palpitations Gastrointestinal: No: Nausea, Vomiting, Abdominal Pain Neurological: Weakness Objective Exam Last Set of Vital Signs Vital Signs Date Time Temp Pulse Resp B/P (MAP) Pulse Ox O2 Delivery O2 Flow Rate FiO2 11/12/20 15:56 83 19 114/73 (87) 90 High Flow N/C 5.00 11/12/20 11:03 36.6 11/10/20 07:46 40 Capillary Refill : Less Than 3 SecondsLess Than 3 Seconds I&O Intake and Output 11/12/20 00:00 Intake Total 3260 ml Balance 3260 ml Intake Oral 3260 ml # Voids 11 General: Alert, Oriented X3, Cooperative, Mild Distress (with activity), Other (tearful during visit) HEENT: Mucous Memb Moist/[place] Lungs: Clear to Auscultation, Normal Air Movement Heart: Regular Rate, No Murmurs Abdomen: Normal Bowel Sounds, Soft, No Tenderness Extremities: No Edema, No Tenderness/Swelling Skin: No Rashes, No Breakdown Neuro: Strength at 5/5 X4 Ext, Sensation Intact, Cranial Nerves 3-12 NL Psych/Mental Status: Mental Status NL, Mood NL Results/Procedures Lab Laboratory Tests 11/11/20 19:00: Glucometer 377H 11/11/20 20:42: Glucometer 283H 11/12/20 03:41: White Blood Count 8.6, Red Blood Count 4.92, Hemoglobin 12.4, Hematocrit 40, Mean Corpuscular Volume 81, Mean Corpuscular Hemoglobin 25, Mean Corpuscular Hemoglobin Concent 31L, Red Cell Distribution Width 14.6H, Platelet Count 282, Mean Platelet Volume 9.5, Immature Granulocyte % (Auto) 2, Neutrophils (%) (Auto) 74, Lymphocytes (%) (Auto) 15, Monocytes (%) (Auto) 8, Eosinophils (%) (Auto) 1, Basophils (%) (Auto) 0, Neutrophils # (Auto) 6.3, Lymphocytes # (Auto) 1.3, Monocytes # (Auto) 0.7, Eosinophils # (Auto) 0.1, Basophils # (Auto) 0.0, Immature Granulocyte # (Auto) 0.2H, Sodium Level 133L, Potassium Level 3.6, Chloride Level 97L, Carbon Dioxide Level 23, Anion Gap 13, Blood Urea Nitrogen 17, Creatinine 0.81, Estimat Glomerular Filtration Rate > 60, BUN/Creatinine Ratio 21, Glucose Level 224H, Calcium Level 9.0, Corrected Calcium 9.6, Total Bilirubin 0.4, Aspartate Amino Transf (AST/SGOT) 26, Alanine Aminotransferase (ALT/SGPT) 45, Alkaline Phosphatase 71, Total Protein 6.5, Albumin 3.2 11/12/20 11:01: Glucometer 171H 11/12/20 15:57: Glucometer 348H Microbiology 11/03/20 Influenza Types A,B Antigen (PAULINA) - Final, Complete 11/02/20 Blood Culture - Final, Complete No growth Assessment/Plan Assessment/Plan (1) Acute respiratory failure due to COVID-19 Status: Acute Assessment & Plan: 11/12: Patient has completed treatment with covolesant plasma and Remdimsvir (2) Pneumonia due to COVID-19 virus Status: Acute (3) Pulmonary embolism Status: Acute Assessment & Plan: 11/12: Continue OAC Qualifiers: Qualified Codes: I26.99 - Other pulmonary embolism without acute cor pulmonale (4) Steroid-induced hyperglycemia Status: Acute (5) T2DM (type 2 diabetes mellitus) Status: Chronic Assessment & Plan: 11/12: Continue Levemir and SSI Qualifiers: Qualified Codes: E11.65 - Type 2 diabetes mellitus with hyperglycemia; Z79.4 - superintendent container terminal (current) use of insulin (6) HLD (hyperlipidemia) Status: Chronic Assessment & Plan: 11/12: Statin (7) GERD (gastroesophageal reflux disease) Status: Chronic (8) Hypothyroidism Status: Chronic (9) Obesity Status: Chronic Qualifiers: (10) Debility Status: Acute Assessment & Plan: - PT/OT Clinical Quality Measures DVT/VTE Risk/Contraindication: Risk Factor Score Per Nursin RFS Level Per Nursing on Admit: 3=High KATHIE BEASLEY MD Nov 12, 2020 18:11
--- NOTE | 2020-11-12 19:00 | NUR ---
TRANSFERRED TO [facility] VIA WHEELCHAIR. REPORT TO VAL OLIVARES.
--- NOTE | 2020-11-12 19:10 | NUR ---
Received pt from ICU and received report from VAL Schrader. Pt alert and oriented, all needs met.
[2020-11-12] MEDS: rOPINIRole 1 MG (REQUIP) TABLET PO SCH (21:13)
[2020-11-13 01:16] VITALS: BP 119/73
[2020-11-13] MEDS: guaiFENesin SYRUP 100 MG/5 ML 10 ML (ROBITUSSIN SF) PO SCH ×6 (01:44→20:19)
[2020-11-13 04:00] VITALS: BP 124/79
[2020-11-13 05:43] LABS: CHLORIDE 101 MMOL/L (98-107); SODIUM 135 MMOL/L (135-145)
[2020-11-13 05:44] LABS: CALCIUM 9.1 MG/DL (8.5-10.1)
[2020-11-13 05:45] LABS: GLUCOSE 226 MG/DL (70-105)
[2020-11-13 05:47] LABS: CARBON DIOXIDE 24 MMOL/L (21-32)
[2020-11-13 05:49] LABS: CREATININE SERUM 0.78 MG/DL (0.60-1.30); GFR ESTIMATED > 60
[2020-11-13 05:50] LABS: BUN/CREATININE RATIO 23
[2020-11-13] MEDS: APIXABAN 5 MG (ELIQUIS) TABLET PO SCH ×2 (06:18→17:33)
[2020-11-13] MEDS: LEVOTHYROXINE 125 MCG (LEVOTHROID) TABLET PO SCH (06:18)
[2020-11-13] MEDS: inSUlin ASPART (NovoLOG) 1 UNIT/0.01 ML (CHARGE PER UNIT) SC SCH ×4 (06:19→20:19)
[2020-11-13] MEDS: RT-ALBUTEROL INHALER HFA (VENTOLIN HFA) 18 GM IH SCH ×4 (07:19→18:37)
[2020-11-13 08:00] VITALS: BP 118/73
[2020-11-13] MEDS: PANTOPRAZOLE 20 MG TABLET (PROTONIX) PO SCH (08:13)
[2020-11-13] MEDS: PREGABALIN 50 MG (LYRICA) CAP PO SCH (08:13)
--- NOTE | 2020-11-13 10:20 | NUR ---
RT NOTIFIED OF HOME O2 ORDER
--- NOTE | 2020-11-13 11:28 | NUR ---
PT O2 SATURATION 91% ON 5L NC AT REST. REMOVED 02 FROM PATIENT AT REST WITH O2 SATURATION DROPPING TO 88%. O2 PLACED BACK ON PT AT 4L AND SATURATION WENT TO 92%
[2020-11-13 12:00] VITALS: BP 106/75
--- NOTE | 2020-11-13 12:06 | NUR ---
CM/SS following with patient for discharge planning. Plan: Patient will likely discharge home tomorrow with a new oxygen need. DME: CM/SS was informed by the Respiratory Therapist that the patient wanted to use [id number] in [place]. CM/SS contacted [id number] and spoke with Jamil. CM/SS faxed the face sheet, insurance, h&p, and home o2 study. This sw will fax script when available. Notified the physician. CM/SS attempted to contact the patient via room phone. No answer, will attempt again at a later time to assess further needs.
--- NOTE | 2020-11-13 12:25 | Progress Note ---
Subjective Subjective/Events-last exam Patient states that she is feeling much better. She was up and had a shower by herself this AM. Tolerating PO diet and ambulating Review of Systems Pulmonary: Dyspnea, Cough Cardiovascular: No: Chest Pain, Palpitations Gastrointestinal: No: Nausea, Vomiting, Abdominal Pain Neurological: Weakness; No: Confusion Objective Exam Last Set of Vital Signs Vital Signs Date Time Temp Pulse Resp B/P (MAP) Pulse Ox O2 Delivery O2 Flow Rate FiO2 11/13/20 11:33 Nasal Cannula 4.00 92 11/13/20 11:21 91 11/13/20 08:00 36.1 70 20 118/73 (88) Capillary Refill : Less Than 3 SecondsLess Than 3 Seconds I&O Intake and Output 11/13/20 00:00 Intake Total 1400 ml Balance 1400 ml Intake Oral 1400 ml # Voids 11 General: Alert, Oriented X3, Cooperative, Mild Distress (with moderate activity) HEENT: Mucous Memb Moist/[place] Lungs: Clear to Auscultation, Normal Air Movement Heart: Regular Rate, No Murmurs Abdomen: Normal Bowel Sounds, Soft, No Tenderness, No Masses Extremities: No Edema, No Tenderness/Swelling Skin: No Rashes, No Breakdown Neuro: Normal Speech, Sensation Intact, Cranial Nerves 3-12 NL Psych/Mental Status: Mental Status NL, Mood NL Results/Procedures Lab Laboratory Tests 11/12/20 15:57: Glucometer 348H 11/12/20 20:20: Glucometer 339H 11/13/20 05:15: Sodium Level 135, Potassium Level 4.0, Chloride Level 101, Carbon Dioxide Level 24, Anion Gap 10, Blood Urea Nitrogen 18, Creatinine 0.78, Estimat Glomerular Filtration Rate > 60, BUN/Creatinine Ratio 23, Glucose Level 226H, Calcium Level 9.1 Microbiology 11/03/20 Influenza Types A,B Antigen (PAULINA) - Final, Complete 11/02/20 Blood Culture - Final, Complete No growth Assessment/Plan Assessment/Plan (1) Acute respiratory failure due to COVID-19 Status: Acute Assessment & Plan: 11/12: Patient has completed treatment with covolesant plasma and Remdimsvir 11/13: Discussed case with Dr Cobos and he recommended starting a low dose steroid, patient is adament about going home today or tomorrow, discussed goals of care and will plan on home with oxygen tomorrow (2) Pneumonia due to COVID-19 virus Status: Acute (3) Pulmonary embolism Status: Acute Assessment & Plan: 11/12: Continue OAC Qualifiers: Qualified Codes: I26.99 - Other pulmonary embolism without acute cor pulmonale (4) Steroid-induced hyperglycemia Status: Acute (5) T2DM (type 2 diabetes mellitus) Status: Chronic Assessment & Plan: 11/12: Continue Levemir and SSI Qualifiers: Qualified Codes: E11.65 - Type 2 diabetes mellitus with hyperglycemia; Z79.4 - FPC (current) use of insulin (6) HLD (hyperlipidemia) Status: Chronic Assessment & Plan: 11/12: Statin (7) GERD (gastroesophageal reflux disease) Status: Chronic Qualifiers: Qualified Codes: K21.9 - Gastro-esophageal reflux disease without esophagitis (8) Hypothyroidism Status: Chronic Qualifiers: Qualified Codes: E03.9 - Hypothyroidism, unspecified (9) Obesity Status: Chronic Qualifiers: (10) Debility Status: Acute Assessment & Plan: - PT/OT Clinical Quality Measures DVT/VTE Risk/Contraindication: Risk Factor Score Per Nursin RFS Level Per Nursing on Admit: 3=High KATHIE BEASLEY MD Nov 13, 2020 12:25
[2020-11-13 16:00] VITALS: BP 108/71
[2020-11-13 19:45] VITALS: BP 113/74
[2020-11-13] MEDS: rOPINIRole 1 MG (REQUIP) TABLET PO SCH (20:21)
[2020-11-14] VITALS: BP 91/56
[2020-11-14] MEDS: guaiFENesin SYRUP 100 MG/5 ML 10 ML (ROBITUSSIN SF) PO SCH ×3 (01:15→09:47)
[2020-11-14 03:57] VITALS: BP 99/65
[2020-11-14] MEDS: inSUlin ASPART (NovoLOG) 1 UNIT/0.01 ML (CHARGE PER UNIT) SC SCH (05:21)
[2020-11-14] MEDS: APIXABAN 5 MG (ELIQUIS) TABLET PO SCH (06:13)
[2020-11-14] MEDS: LEVOTHYROXINE 125 MCG (LEVOTHROID) TABLET PO SCH (06:13)
[2020-11-14 06:22] LABS: BASOPHILS % (AUTO) 0 % (0-10); EOSINOPHILS # (AUTO) 0.1 10^3/uL (0.0-0.3); EOSINOPHILS % (AUTO) 1 % (0-10); HEMATOCRIT 42 % (35-52); HEMOGLOBIN 13.3 g/dL (11.5-16.0); LYMPHOCYTES # (AUTO) 1.9 10^3/uL (1.0-4.0); LYMPHOCYTES % (AUTO) 21 % (12-44); MEAN CORPUSCULAR HEMOGLOBIN 26 pg (25-34); MEAN CORPUSCULAR HGB CONC 32 g/dL (32-36); MEAN CORPUSCULAR VOLUME 81 fL (80-99); MEAN PLATELET VOLUME 9.7 fL (9.0-12.2); MONOCYTES # (AUTO) 0.5 10^3/uL (0.0-1.0); MONOCYTES % (AUTO) 6 % (0-12); NEUTROPHILS # (AUTO) 6.1 10^3/uL (1.8-7.8); NEUTROPHILS % (AUTO) 69 % (42-75); PLATELET COUNT 349 10^3/uL (130-400); WHITE BLOOD COUNT 8.9 10^3/uL (4.3-11.0)
[2020-11-14 06:32] LABS: CHLORIDE 101 MMOL/L (98-107); POTASSIUM 4.1 MMOL/L (3.6-5.0); SODIUM 138 MMOL/L (135-145)
[2020-11-14 06:33] LABS: CALCIUM 9.1 MG/DL (8.5-10.1)
[2020-11-14 06:34] LABS: GLUCOSE 85 MG/DL (70-105)
[2020-11-14 06:35] LABS: CARBON DIOXIDE 25 MMOL/L (21-32)
[2020-11-14 06:37] LABS: CREATININE SERUM 0.73 MG/DL (0.60-1.30); GFR ESTIMATED > 60
[2020-11-14 06:38] LABS: BUN/CREATININE RATIO 18
[2020-11-14 08:00] VITALS: BP 116/72
[2020-11-14] MEDS: PREGABALIN 50 MG (LYRICA) CAP PO SCH (09:46)
[2020-11-14] MEDS: PANTOPRAZOLE 20 MG TABLET (PROTONIX) PO SCH (09:46)
[2020-11-14] MEDS: RT-ALBUTEROL INHALER HFA (VENTOLIN HFA) 18 GM IH SCH (09:51)
--- NOTE | 2020-11-14 10:11 | Discharge Summary ---
Diagnosis/Chief Complaint Date of Admission Nov 02, 2020 at 17:10 Date of Discharge Discharge Diagnosis Problems/Diagnosis: (1) Acute respiratory failure due to COVID-19 Assessment & Plan: 11/12: Patient has completed treatment with covolesant plasma and Remdimsvir 11/13: Discussed case with Dr Cobos and he recommended starting a low dose steroid, patient is adament about going home today or tomorrow, discussed goals of care and will plan on home with oxygen tomorrow Status: Acute (2) Pneumonia due to COVID-19 virus Status: Acute (3) Pulmonary embolism Assessment & Plan: 11/12: Continue OAC Qualifiers: Qualified Codes: I26.99 - Other pulmonary embolism without acute cor pulmonale Status: Acute (4) Steroid-induced hyperglycemia Status: Acute (5) T2DM (type 2 diabetes mellitus) Assessment & Plan: 11/12: Continue Levemir and SSI Qualifiers: Qualified Codes: E11.65 - Type 2 diabetes mellitus with hyperglycemia; Z79.4 - long-term (current) use of insulin Status: Chronic (6) HLD (hyperlipidemia) Assessment & Plan: 11/12: Statin Status: Chronic (7) GERD (gastroesophageal reflux disease) Qualifiers: Qualified Codes: K21.9 - Gastro-esophageal reflux disease without esophagitis Status: Chronic (8) Hypothyroidism Qualifiers: Qualified Codes: E03.9 - Hypothyroidism, unspecified Status: Chronic (9) Obesity Qualifiers: Status: Chronic (10) Debility Assessment & Plan: - PT/OT Status: Acute Discharge Summary-Simple/Stand Consultations Discharge Physical Examination Allergies: Coded Allergies: No Known Drug Allergies (Unverified , 11/02/20) Vitals & I&Os Vital Sign - Last 12Hours Date Time Temp Pulse Resp B/P (MAP) Pulse Ox O2 Delivery O2 Flow Rate FiO2 11/14/20 08:00 36.4 90 18 116/72 (87) 91 Nasal Cannula 4.00 11/13/20 11:33 92 Intake and Output 11/14/20 00:00 Intake Total 850 ml Balance 850 ml Hospital Course See final discharge diagnosis. Discharge Instructions to patient/family Please see electronic discharge instructions given to patient. Discharge Medications Reviewed and agree with Discharge Medication list on patient's Discharge Instruction sheet Clinical Quality Measures DVT/VTE Risk/Contraindication: Risk Factor Score Per Nursin RFS Level Per Nursing on Admit: 3=High GAULT,KATHIE R MD Nov 14, 2020 10:11
[2020-11-14] MEDS ORDERED: PRED10TA22 PO (10:14)
[2020-11-14] MEDS ORDERED: APIX5TAB PO (10:14)
--- NOTE | 2020-11-14 10:15 | Discharge Summary ---
Discharge [facility] Reconcile Patient Problems Problems Reviewed?: Yes Discharge Medications New, Converted or Re-Newed RX: Transmitted to Pharmacy New Medications: Prednisone (Prednisone) 10 Mg Tab.ds.pk 10 MG PO DAILY, #18 EA take 2 tabs x 5 days then 1 tab x 5 days then 1/2 tab x 6 days then stop Apixaban (Eliquis) 5 Mg Tablet 10 MG PO BID@0600,1800, #60 TAB Continued Medications: Aspirin (Aspirin EC) 81 Mg Tablet.dr 81 MG PO DAILY, TAB Atorvastatin Calcium (Atorvastatin Calcium) 40 Mg Tablet 40 MG PO DAILY Dulaglutide (Trulicity) 1.5 Mg/0.5 Ml Pen.injctr 1.5 MG SQ WED, VIAL Esomeprazole Magnesium (Esomeprazole Magnesium) 20 Mg Capsule.dr 20 MG PO DAILY PRN for HEARTBURN MDD C, CAP Fluticasone/Salmeterol (Advair 250-50 Diskus) 1 Each Blst.w.dev 1 EACH IH BID PRN for SHORTNESS OF BREATH Glipizide (Glipizide) 5 Mg Tablet 5 MG PO BID Levothyroxine Sodium (Levothyroxine) 125 Mcg Capsule 125 MCG PO DAILY Metformin HCl (Metformin HCl) 1,000 Mg Tablet 1000 MG PO DAILY W/ MEAL, TAB Multivitamin (Multivitamin) 1 Each Tablet 1 EACH PO DAILY, TAB Pregabalin (Pregabalin) 50 Mg Capsule 50 MG PO DAILY Ropinirole HCl (Ropinirole HCl) 1 Mg Tablet 3 MG PO HS Discontinued Medications: Azithromycin (Azithromycin) 250 Mg Tablet 250 MG PO DAILY, TAB FILLED ON 11-02-2020 #6/5 DAY SUPPLY. Clonazepam (Clonazepam) 1 Mg Tablet 1 MG PO HS, TAB Dexamethasone (Dexamethasone) 6 Mg Tablet 6 MG PO DAILY FILLED 11-02-2020 #10/10 DAY SUPPLY Ibuprofen (Ibuprofen) 200 Mg Tablet 800 MG PO Q8H PRN for PAIN-MILD (1-4), TAB Patient Instructions Goal/Follow Up Appt: F.u with PCP next week Activity & Diet Discharge Diet: ADA Diet Activity as Tolerated: Yes KATHIE BEASLEY MD Nov 14, 2020 10:14
[2020-11-14 11:00] VITALS: BP 116/72
--- NOTE | 2020-11-14 11:00 | NUR ---
CM/SS finalized discharge. Plan: The patient is discharging to home today with her home oxygen. The patient's is Transportation. DME: CM/SS contacted [id number]. They report they delivered the oxygen to the patient's house and the [facility] is bringing portable tank to the hospital. No further needs.
== END 2020-11-14 11:00 | disposition home or self-care (01) | DRG 177 ==
LOC: EDUNIT# 15:09 → ER 15:11 → 4TH 17:10 → CSD 11-09 11:35 → 4TH 11-12 19:18
PROVIDERS: ADMIT Family Medicine; ATTEND Family Medicine
PROC: XW033E5 Introduction of Remdesivir Anti-infective into Peripheral Vein, Percutaneous Approach, New Technology Group 5 (ICD-10-PCS; principal; 2020-11-02)
PROC: XW13325 Transfusion of Convalescent Plasma (Nonautologous) into Peripheral Vein, Percutaneous Approach, New Technology Group 5 (ICD-10-PCS; 2020-11-05)
DX: U07.1 COVID-19 (principal); J12.89 Other viral pneumonia; J96.01 Acute respiratory failure with hypoxia; I26.99 Other pulmonary embolism without acute cor pulmonale; Z73.0 Burn-out; E11.65 Type 2 diabetes mellitus with hyperglycemia; Z79.84 Long term (current) use of oral hypoglycemic drugs; E66.9 Obesity, unspecified; Z68.32 Body mass index [BMI] 32.0-32.9, adult; E78.5 Hyperlipidemia, unspecified; E03.9 Hypothyroidism, unspecified; G25.81 Restless legs syndrome; K21.9 Gastro-esophageal reflux disease without esophagitis; I10 Essential (primary) hypertension; Z87.891 Personal history of nicotine dependence; Z79.899 Other long term (current) drug therapy; T38.0X5A Adverse effect of glucocorticoids and synthetic analogues, initial encounter
CPT/HCPCS: 36415; 36600; 71045; 71275; 80048; 80053; 82805; 82962; 83036; 83605; 83880; 84145; 85007; 85025; 85027; 85379; 86141; 86900; 86901; 87040; 87804; 94640; 94664; 94760; 94761

== ENCOUNTER → 2021-04-19 | Outpatient (CLI) | payer OTHER ==
[~2021-04-19] MED LIST: APIX5TAB PO; ASPI-1238 PO; ATOR40TA70 PO; AZIT250T12 PO; CLON1TAB13 PO; DEXA6TAB PO; DULA1.5P2 SQ; ESOM20CA37 PO; FLUT1DIS26 IH; GLIP5TAB13 PO; IBUP-2473 PO; LEVO125C4 PO; METF-399 PO; MULT-1136 PO; PRED10TA22 PO; PREG50CA65 PO; ROPI1TAB PO
--- NOTE | 2021-04-19 15:22 | Diagnostic Imaging Report ---
PROCEDURE: MRI lumbar spine. TECHNIQUE: Multiplanar, multisequence MRI of the lumbar spine was performed without contrast. INDICATION: Back pain, right-sided pain. COMPARISON: There is no prior study available for comparison. FINDINGS: The T2 parasagittal images show the vertebral body heights and alignment to be within normal limits. The intervertebral spaces are fairly well maintained although there is desiccation of the discs at every level. At the L4-L5 level there is a disc bulge centrally. The disc flattens the ventral aspect of the thecal sac and narrows the AP diameter to approximately 9.3 mm. There is mild narrowing of the neural foramen bilaterally at this level as well. There is also a disc bulge centrally at the L5-S1 level. The AP diameter of the thecal sac is narrowed to 10.9 mm. There is no significant neural foraminal narrowing at this level. The remainder of the lumbar spine is unremarkable for spinal stenosis or nerve root encroachment. There is no abnormal signal arising from the cord or other vertebral bodies to indicate an acute abnormality. There is no sign of a paraspinal mass. IMPRESSION: 1. There is borderline trefoil stenosis at L4-L5. There is mild neural foraminal narrowing bilaterally as well. 2. The remainder of the lumbar spine is unremarkable for spinal stenosis or nerve root encroachment. 3. There is no sign of an acute bony abnormality or of a cord lesion. Dictated by: Dictated on workstation # [id number]
== END ==
LOC: RAD 13:15
PROVIDERS: ATTEND Nurse Practitioner Family
DX: M48.061 Spinal stenosis, lumbar region without neurogenic claudication (principal)
CPT/HCPCS: 72148

== ENCOUNTER 2023-02-27 22:52 | Inpatient (IN) | payer MEDICARE, OTHER ==
[~2023-02-27] VITALS: Ht 170.2 cm; Wt 105.0 kg
[2023-02-27] MEDS ORDERED: NS IV 1000 ML 1,000 ML IV STA (23:03)
--- NOTE | 2023-02-27 23:05 | ED Dyspnea ---
General Chief Complaint: Respiratory Problems Stated Complaint: LW OXYGEN FATIGUE AND DIAREAH Source of Information: Patient, Family (daughter) History of Present Illness Date Seen by Provider: Feb 27, 2023 Time Seen by Provider: 22:54 Initial Comments 67 yo female presenting from home due to complaints of continued shortness of breath over the last few days. She had some diarrhea at home as well. She felt worse today and was evaluated at the [facility]. She was given 2 Liters of NS in the clinic and her heart rate improved to 120. She was to start antibiotics for concern for possible pneumonia and UTI. She states by the time she got an alert from [employer] that the medicine was ready they were closed. She had subjective fever and nasal congestion. She reports having a negative swab for Covid through the [facility] clinic. She denies history of asthma or COPD. She has previously had a blood clot in her lungs. She has history of Diabetes, Hypothyroid and Hyperlipidemia. Timing/Duration: Other (she has been getting worse over the last few days) Severity: Severe Activities at Onset: None Prior Episodes/Possible Cause: No Prior Episodes Modifying Factors: Worse With Activity Associated Symptoms: Anxiety, Cough, Fever (subjective), Loss of Appetite, Weakness Allergies and Home Medications Allergies Coded Allergies: No Known Drug Allergies (Unverified , 11/02/20) Patient Home Medication List Home Medication List Reviewed: Yes Apixaban (Eliquis) 5 Mg Tablet, 10 MG PO BID@0600,1800 Prescribed by: KATHIE BEASLEY on 11/14/20 1014 Aspirin (Aspirin EC) 81 Mg Tablet., 81 MG PO DAILY, (Reported) Entered as Reported by: CHELI JUSTICE on 11/05/20 1230 Atorvastatin Calcium (Atorvastatin Calcium) 40 Mg Tablet, 40 MG PO DAILY, (Reported) Entered as Reported by: EVELYNE RINCON on 11/03/20 0513 Dulaglutide (Trulicity) 1.5 Mg/0.5 Ml Pen.injctr, 1.5 MG SQ WED, (Reported) Entered as Reported by: CHELI JUSTICE on 11/05/20 1230 Esomeprazole Magnesium (Esomeprazole Magnesium) 20 Mg Capsule., 20 MG PO DAILY PRN for HEARTBURN, (Reported) Entered as Reported by: EVELYNE RINCON on 11/03/20 0513 Fluticasone/Salmeterol (Advair 250-50 Diskus) 1 Each Blst.w.dev, 1 EACH IH BID PRN for SHORTNESS OF BREATH, (Reported) Entered as Reported by: CHELI JUSTICE on 11/05/20 1230 Glipizide (Glipizide) 5 Mg Tablet, 5 MG PO BID, (Reported) Entered as Reported by: EVELYNE RINCON on 11/03/20512 Levothyroxine Sodium (Levothyroxine) 125 Mcg Capsule, 125 MCG PO DAILY, (Reported) Entered as Reported by: EVELYNE RINCON on 11/03/20512 Metformin HCl (Metformin HCl) 1,000 Mg Tablet, 1,000 MG PO DAILY W/ MEAL, (Reported) Entered as Reported by: EVELYNE RINCON on 11/03/20512 Multivitamin (Multivitamin) 1 Each Tablet, 1 EACH PO DAILY, (Reported) Entered as Reported by: CHELI JUSTICE on 11/05/20 123 Prednisone (Prednisone) 10 Mg Tab.ds.pk, 10 MG PO DAILY Prescribed by: KATHIE BEASLEY on 11/14/20 1014 Pregabalin (Pregabalin) 50 Mg Capsule, 50 MG PO DAILY, (Reported) Entered as Reported by: EVELYNE RINCON on 11/03/20512 Ropinirole HCl (Ropinirole HCl) 1 Mg Tablet, 3 MG PO HS, (Reported) Entered as Reported by: EEVLYNE RINCON on 11/03/20512 Review of Systems Review of Systems Constitutional: chills; No diaphoresis; fever (subjective), malaise, weakness EENTM: nose congestion Respiratory: cough, dyspnea on exertion; No hemoptysis, No orthopnea, No phlegm; short of breath; No stridor; wheezing Cardiovascular: No chest pain; palpitations Gastrointestinal: diarrhea; No nausea, No vomiting Genitourinary: No dysuria Musculoskeletal: no symptoms reported Skin: No rash Psychiatric/Neurological: Anxiety Past [id number] Hx Seasonal Allergies Seasonal Allergies: Yes Past Medical History Surgery/Hospitalization HX: Hypothyroid, Diabetes Mellitus, Hyperlipidemia Hysterectomy Respiratory: Yes Pneumonia Cardiac: Yes Hypertension Neurological: No Genitourinary: No Gastrointestinal: Yes Gastroesophageal Reflux Musculoskeletal: No Endocrine: Yes Hypothyroidsim, Diabetes, Non-Insulin dep HEENT: No Cancer: No Psychosocial: No Integumentary: No Physical Exam Vital Signs Vital Signs - First Documented 02/27/23 02/27/23 22:54 22:55 Temp 37.9 Pulse 130 Resp 30 B/P (MAP) 151/72 (98) Pulse Ox 90 O2 Delivery Room Air O2 Flow Rate 2.00 FiO2 95 Capillary Refill : Height, Weight, BMI Height: '" Weight: lbs. oz. kg; 32.45 BMI Method: General Appearance: Anxious, Moderate Distress, Obese HEENT: PERRL/EOMI; No Moist Mucous Membranes (slightly dry mucous membranes) Neck: Full Range of Motion, Normal Inspection, Non Tender, Supple Respiratory: Chest Non Tender, Accessory Muscle Use, Decreased Breath Sounds, Respiratory Distress; No Rhonci, No Stridor Cardiovascular: Normal Peripheral Pulses, Tachycardia Gastrointestinal: Normal Bowel Sounds, No Pulsatile Mass, Non Tender, Soft Rectal: Deferred Extremity: Normal Capillary Refill, Normal Inspection, No Calf Tenderness, No Pedal Edema Neurologic/Psychiatric: Alert, Oriented x3 Skin: Normal Color, Warm/Dry Focused Exam Lactate Level 02/27/23 23:00: Lactic Acid Level 1.78 Lactic Acid Level Laboratory Tests Test 02/27/23 23:00 Lactic Acid Level 1.78 MMOL/L (0.50-2.00) Progress/Results/Core Measures Results/Orders Lab Results Laboratory Tests Test 02/27/23 23:00 Range/Units White Blood Count 17.7 H 4.3-11.0 10^3/uL Red Blood Count 4.45 3.80-5.11 10^6/uL Hemoglobin 10.1 L 11.5-16.0 g/dL Hematocrit 32 L 35-52 % Mean Corpuscular Volume 73 L 80-99 fL Mean Corpuscular Hemoglobin 23 L 25-34 pg Mean Corpuscular Hemoglobin Concent 31 L 32-36 g/dL Red Cell Distribution Width 16.0 H 10.0-14.5 % Platelet Count 240 130-400 10^3/uL Mean Platelet Volume 9.6 9.0-12.2 fL Immature Granulocyte % (Auto) 8 % Neutrophils (%) (Auto) 80 H 42-75 % Lymphocytes (%) (Auto) 4 L 12-44 % Monocytes (%) (Auto) 8 0-12 % Eosinophils (%) (Auto) 0 0-10 % Basophils (%) (Auto) 0 0-10 % Neutrophils # (Auto) 14.2 H 1.8-7.8 10^3/uL Lymphocytes # (Auto) 0.7 L 1.0-4.0 10^3/uL Monocytes # (Auto) 1.4 H 0.0-1.0 10^3/uL Eosinophils # (Auto) 0.0 0.0-0.3 10^3/uL Basophils # (Auto) 0.0 0.0-0.1 10^3/uL Immature Granulocyte # (Auto) 1.4 H 0.0-0.1 10^3/uL Neutrophils % (Manual) 87 % Lymphocytes % (Manual) 5 % Monocytes % (Manual) 5 % Band Neutrophils 3 % Prothrombin Time 14.5 12.2-14.7 SEC INR Comment 1.1 0.8-1.4 Activated Partial Thromboplast Time 33 24-35 SEC D-Dimer 2.39 H 0.00-0.49 UG/ML Sodium Level 129 L 135-145 MMOL/L Potassium Level 3.4 L 3.6-5.0 MMOL/L Chloride Level 95 L 98-107 MMOL/L Carbon Dioxide Level 22 21-32 MMOL/L Anion Gap 12 5-14 MMOL/L Blood Urea Nitrogen 16 7-18 MG/DL Creatinine 0.78 0.60-1.30 MG/DL Estimat Glomerular Filtration Rate 84 BUN/Creatinine Ratio 21 Glucose Level 307 H 70-105 MG/DL Lactic Acid Level 1.78 0.50-2.00 MMOL/L Calcium Level 8.9 8.5-10.1 MG/DL Corrected Calcium 9.5 8.5-10.1 MG/DL Magnesium Level 1.5 L 1.6-2.4 MG/DL Total Bilirubin 1.1 H 0.1-1.0 MG/DL Aspartate Amino Transf (AST/SGOT) 10 5-34 U/L Alanine Aminotransferase (ALT/SGPT) 12 0-55 U/L Alkaline Phosphatase 101 40-136 U/L Troponin I < 0.30 <0.30 NG/ML C-Reactive Protein 14.33 H <0.50 MG/DL Pro-B-Type Natriuretic Peptide 960.3 H <125.0 PG/ML Total Protein 6.7 6.4-8.2 GM/DL Albumin 3.3 3.2-4.5 GM/DL My Orders Orders - MANINDER HEATH MD Cbc With Automated Diff (02/27/23 23:02) Comprehensive Metabolic Panel (02/27/23 23:02) Blood Culture (02/27/23 23:02) Magnesium (02/27/23 23:02) Ekg Tracing (02/27/23 23:02) O2 (02/27/23 23:02) Ed Iv/Invasive Line Start (02/27/23 23:02) Monitor-Rhythm Ecg Trace Only (02/27/23 23:02) Crp Fs (02/27/23 23:02) Lactic Acid Analyzer (02/27/23 23:02) Ct Angio Chest W (02/27/23 23:02) Troponin I Fs (02/27/23 23:03) Fibrin Degradation Products (02/27/23 23:03) Ns Iv 1000 Ml (Sodium Chloride 0.9%) (02/27/23 23:03) Iohexol Injection (Omnipaque 350 Mg/Ml 1 (02/27/23 23:15) Received Contrast (Hold Metformin- Contr (02/27/23 23:15) Ns (Ivpb) (Sodium Chloride 0.9% Ivpb Bag (02/27/23 23:15) Probnp Fs (02/27/23 23:05) Manual Differential (02/27/23 23:00) Protime With Inr (02/27/23 23:21) Partial Thromboplastin Time (02/27/23 23:21) Ceftriaxone 1 Gm Pre-Mix (Rocephin 1 Gm (02/27/23 23:49) Azithromycin Injection (Zithromax Inject (02/27/23 23:49) Albuterol/Ipra Inhalation Soln (Duoneb I (02/28/23 00:03) Svn Small Volume Nebulizer (02/28/23 00:03) Ed Admission (Communication) (02/28/23 00:07) Ns Iv 1000 Ml (Sodium Chloride 0.9%) (02/28/23 00:56) Enoxaparin Injection (Lovenox Injection) (02/28/23 00:58) Antacid Suspension (Mylanta Suspension (02/28/23 02:02) Medications Given in ED Current Medications Medications Dose Ordered Sig/Amarilys Route Start Time Stop Time Status Last Admin Dose Admin Iohexol 100 ml ONCE ONCE IV 02/27/23 23:15 02/27/23 23:16 DC 02/27/23 23:10 100 ML Sodium Chloride 100 ml ONCE ONCE IV 02/27/23 23:15 02/27/23 23:16 DC 02/27/23 23:09 100 ML Vital Signs/I&O 02/27/23 02/27/23 02/28/23 22:54 22:55 02:09 Temp 37.9 Pulse 130 121 Resp 30 24 B/P (MAP) 151/72 (98) 141/78 Pulse Ox 90 95 95 O2 Delivery Room Air Nasal Cannula Nasal Cannula O2 Flow Rate 2.00 2.00 FiO2 95 02/28/23 00:00 Intake Total 1000 ml Balance 1000 ml Admisison Planning May Need Admission (Planning): 22:57 Progress Progress Note #1: Progress Note Potential diagnosis of pulmonary embolism, pneumonia, congestive heart failure, myocardial infarction, pulmonary mass, pleural effusion. Obtain peripheral IV access and send labs for complete blood count, comprehensive metabolic profile, coagulation factors, D-dimer, proBNP, troponin I, blood cultures, lactic acid, magnesium. Since he has a history of pulmonary embolism and presents with tachycardia and shortness of breath and an O2 saturation of 90% on room air will obtain CT scan of the chest with angiography to evaluate for possible pulmonary embolism or lung pathology to be causing her symptoms. Placed on supplemental oxygen to maintain oxygen saturation above 91%. Administer normal saline 1 L IV fluid bolus for hydration and tachycardia. Electrocardiogram to evaluate her heart rate and rhythm. Placed on cardiac bus monitor to watch her heart rate and rhythm. My initial interpretation of her cardiac telemetry shows sinus tachycardia with a heart rate of 125. Progress Note #2: Time: 23:49 Progress Note Complete blood count shows elevated white blood cell count of 17.7 with a left shift with 87% neutrophils and 3% bands. She does have some anemia with a hemoglobin of 10.1. Her comprehensive metabolic profile showed normal renal function with BUN of 16 and creatinine 0.78. She did have an elevated glucose of 307. Her coagulation factors were within normal range and not showing a coagulopathy. Her D-dimer was elevated to 2.39. Her lactic acid was not elevated at 1.78. Her troponin was less than 0.3 and her proBNP was 960. She did have an elevated CRP of 14.33 consistent with her having infection and inflammatory process. She had some mild hypomagnesemia with a magnesium of 1.5. On my personal review and interpretation of her CT scan of the chest with angiography I did not appreciate any definite pulmonary embolism but she had infiltrate and consolidation that I felt was in the right middle lobe. Will start on antibiotics of Rocephin 1 g IV and Zithromax 500 mg IV for community- acquired pneumonia. Awaiting radiology over read. [id number] I called and discussed the case with Dr. Villarreal, the on-call hospitalist for [facility]. I reviewed the patient's presentation with increasing illness over the last few days and becoming more short of breath throughout the day. She had been seen in the clinic and received IV fluids for hydration due to tachycardia. They had prescribed antibiotics Augmentin and Zithromax however she was unable to pick them up before the pharmacy closed. She had increasing shortness of breath this evening and her daughter had checked a pulse oximeter at home and r eported that it was 87%. On arrival to the ED she was 90 to 91% on room air. She had increased work of breathing and decreased breath sounds. With her history of pulmonary embolism although this appeared to be pneumonia, I have ordered a CT scan with angiography of the chest to evaluate for PE. She recommended having the patient be a full inpatient admission and that she could go to cardiac stepdown as she was not showing signs of severe sepsis. She requested I place bridge orders for the patient so I ordered the bridge orders in addition to a pneumonia order set and sliding scale insulin order set. Although she is not showing signs of severe sepsis asked if she would want me to use the sepsis order set up with the patient having pneumonia, tachycardia, hypoxia and she said I could just use the Pneumonia order set and she would add whatever orders would need to be added on when she got up and was on the computer next. I called the nursing poultry processing supervisor at [facility] to let them know of patient and need for a Cardiac Step Down unit bed. VAL Lewis, answered the poultry processing supervisor phone and she let me know she was in the middle of a Code Blue in the ICU but would call back as soon as possible to get details for admit and work on getting a bed assignment. Progress Note #3: Time: 00:58 Progress Note We were still waiting on radiology to over read the CT scan of the chest with IV angiography so I did order a dose of Lovenox at 1 mg/kg subcutaneous so that she would have initial treatment for possible pulmonary embolism while waiting to hear from radiology if they saw any PE. She was maintaining her oxygen saturation well 95 to 97% on 2 L. She had stable blood pressure and was not hypotensive. Her pulse remained in the 115 to 120 bpm despite IV fluids and antibiotics. She did report having improved burning in her chest and breathing after receiving a DuoNeb breathing treatment. Once she arrives at [facility] she will be on the RT MAT protocol to help with her breathing. We will continue with IV antibiotics and have her getting NS at 150 mls/hr for hydration while waiting on room assignment from prefabricated houses trimmer in [place] and radiology overread on CT scan Chest with IV angiography. 0110 I checked back with nursing poultry processing supervisor and spoke with VAL Ramirez. Both her and Debbie had been involved in a code blue on a patient at [facility] [address] [facility] so I was checking back since it had been an hour after my initial call for a room assignment. She stated she would get a room and put it on the tracker for the nurses. 0151 I called back to check on bed assignment and they put the room assignment on the tracker for the patient. Will call EMS for transport and call nursing report. Patient's daughter came out of the room and requested something for heartburn and indigestion for the patient. She has chronic issues with heartburn and reflux and laying in bed makes it worse so will order a dose of mylanta here in the ED. Initial ECG Impression Date: Feb 27, 2023 Initial ECG Impression Time: 22:57 Initial ECG Rate: 125 Initial ECG Rhythm: S.Tach Initial ECG Comparisson: No Previous ECG Available Comment On my personal interpretation and review her electrocardiogram shows sinus tachycardia with heart rate of 125 bpm. ME interval 125 ms. QT interval 293 ms with a QTc interval 367 ms. She has no acute ST elevation. She has no prior tracing available for comparison. Diagnostic Imaging Diagonstic Imaging: CT Plain Films/CT/US/NM/MRI: chest (Angiography) Comments CT angiography chest with IV contrast Impression: 1. Large consolidative pneumonia in the right upper lobe, possibly aspiration. The esophagus is dilated and fluid-filled with fluid density arising to just above the aortic arch level. Suspect a moderate hiatal hernia. 2. No pulmonary emboli noted. Read by radiologist Dr. Mahad Wu at [phone] and faxed at [phone] Reviewed: Reviewed [place] Study (I reviewed the radiologist report at 0 218), Reviewed by Me Departure Communication (Admissions) Time/Spoke to Admitting Phy: 00:07 [phone] I called and discussed the case with Dr. Villarreal, the on-call hospitalist for [facility]. I reviewed the patient's presentation with increasing illness over the last few days and becoming more short of breath throughout the day. She had been seen in the clinic and received IV fluids for hydration due to tachycardia. They had prescribed antibiotics Augmentin and Zithromax however she was unable to pick them up before the pharmacy closed. She had increasing shortness of breath this evening and her daughter had checked a pulse oximeter at home and reported that it was 87%. On arrival to the ED she was 90 to 91% on room air. She had increased work of breathing and decreased breath sounds. With her history of pulmonary embolism although this appeared to be pneumonia, I have ordered a CT scan with angiography of the chest to evaluate for PE. She recommended having the patient be a full inpatient admission and that she could go to cardiac stepdown as she was not showing signs of severe sepsis. She requested I place bridge orders for the patient so I ordered the bridge orders in addition to a pneumonia order set and sliding scale insulin order set. Although she is not showing signs of severe sepsis asked if she would want me to use the sepsis order set up with the patient having pneumonia, tachycardia, hypoxia and she said I could just use the Pneumonia order set and she would add whatever orders would need to be added on when she got up and was on the computer next. Impression Primary Impression: Pneumonia of right middle lobe due to infectious organism Additional Impressions: Dyspnea Qualified Codes: R06.00 - Dyspnea, unspecified Hypoxia Dehydration Sinus tachycardia Disposition: 30 STILL A PATIENT Condition: Stable Admissions Decision to Admit Reason: Admit from ER (General) Decision to Admit/Date: Feb 28, 2023 Time/Decision to Admit Time: 00:07 Departure-Patient Inst. Referrals: [facility]/ (PCP) Primary Care Physician KIRSTIE ESCALANTE APRN (Family) Primary Care Physician MANINDER HEATH MD Feb 27, 2023 23:05
[2023-02-27 23:08] LABS: BASOPHILS % (AUTO) 0 % (0-10); EOSINOPHILS % (AUTO) 0 % (0-10); HEMATOCRIT 32 % (35-52); HEMOGLOBIN 10.1 g/dL (11.5-16.0); LYMPHOCYTES # (AUTO) 0.7 10^3/uL (1.0-4.0); LYMPHOCYTES % (AUTO) 4 % (12-44); MEAN CORPUSCULAR HEMOGLOBIN 23 pg (25-34); MEAN CORPUSCULAR HGB CONC 31 g/dL (32-36); MEAN CORPUSCULAR VOLUME 73 fL (80-99); MEAN PLATELET VOLUME 9.6 fL (9.0-12.2); MONOCYTES # (AUTO) 1.4 10^3/uL (0.0-1.0); MONOCYTES % (AUTO) 8 % (0-12); NEUTROPHILS # (AUTO) 14.2 10^3/uL (1.8-7.8); NEUTROPHILS % (AUTO) 80 % (42-75); PLATELET COUNT 240 10^3/uL (130-400); WHITE BLOOD COUNT 17.7 10^3/uL (4.3-11.0)
[2023-02-27] MEDS ORDERED: NS 100 ML (IVPB) BAG IV ONE (23:15)
[2023-02-27] MEDS ORDERED: IOHEXOL 350 MG/ML 100 ML (OMNIPAQUE 350) VIAL IV ONE (23:15)
[2023-02-27] MEDS ORDERED: HOLD METFORMIN - RECEIVED CONTRAST 20 ML VIAL IV SCH (23:15)
[2023-02-27 23:28] LABS: ALANINE AMINOTRANSFERASE 12 U/L (0-55); ALBUMIN 3.3 GM/DL (3.2-4.5); ALKALINE PHOSPHATASE 101 U/L (40-136); BILIRUBIN,TOTAL 1.1 MG/DL (0.1-1.0); BUN/CREATININE RATIO 21; CALCIUM 8.9 MG/DL (8.5-10.1); CARBON DIOXIDE 22 MMOL/L (21-32); CHLORIDE 95 MMOL/L (98-107); CREATININE SERUM 0.78 MG/DL (0.60-1.30); GFR ESTIMATED 84; GLUCOSE 307 MG/DL (70-105); MAGNESIUM 1.5 MG/DL (1.6-2.4); POTASSIUM 3.4 MMOL/L (3.6-5.0); SODIUM 129 MMOL/L (135-145); TOTAL PROTEIN 6.7 GM/DL (6.4-8.2)
[2023-02-27 23:32] LABS: INR 1.1 (0.8-1.4); PROTHROMBIN TIME PATIENT 14.5 SEC (12.2-14.7)
[2023-02-27 23:43] LABS: BAND NEUTROPHILS 3 %; LYMPHOCYTES % (MANUAL) 5 %; MONOCYTES % (MANUAL) 5 %; NEUTROPHILS % (MANUAL) 87 %
[2023-02-27] MEDS ORDERED: AZITHROMYCIN INJECTION 500 MG in NS (IVPB) 250 ML IV STA (23:49)
[2023-02-27] MEDS ORDERED: cefTRIAXone PRE-MIX 50 ML IV STA (23:49)
[2023-02-28] VITALS (16 sets, daily range): BP systolic 100–135; BP diastolic 55–79
[2023-02-28] MEDS ORDERED: RT-ALBUTEROL/IPRATROPIUM 3 ML (DUONEB) VIAL INH STA (00:03)
[2023-02-28] MEDS ORDERED: NS IV 1000 ML 1,000 ML IV STA (00:56)
[2023-02-28] MEDS ORDERED: ENOXAPARIN 100 MG/1 ML (LOVENOX) SYR SC STA (00:58)
[2023-02-28] MEDS ORDERED: ANTACID SUSP 30 ML UDC (MYLANTA) PO STA (02:02)
[2023-02-28] MEDS ORDERED: IBUPROFEN 600 MG (MOTRIN) TAB PO ONE (04:22)
[2023-02-28] MEDS ORDERED: IBUPROFEN 600 MG (MOTRIN) TAB PO PRN (04:30)
[2023-02-28] MEDS ORDERED: RT-ALBUTEROL SULF 2.5 MG/3 ML PRE-MIX VIAL INH PRN (04:30)
[2023-02-28] MEDS ORDERED: ACETAMINOPHEN 325 MG TABLET PO PRN ×2 (04:30→07:30)
[2023-02-28] MEDS: NS IV 1000 ML 1,000 ML IV SCH ×4 (04:32→23:01)
[2023-02-28] MEDS ORDERED: ONDANSETRON 4 MG/2 ML (SDV) Z0FRAN IV PRN ×2 (04:45→07:30)
[2023-02-28 06:09] LABS: BASOPHILS % (AUTO) 0 % (0-10); EOSINOPHILS % (AUTO) 0 % (0-10); HEMATOCRIT 30 % (35-52); HEMOGLOBIN 9.2 g/dL (11.5-16.0); LYMPHOCYTES # (AUTO) 0.9 10^3/uL (1.0-4.0); LYMPHOCYTES % (AUTO) 4 % (12-44); MEAN CORPUSCULAR HEMOGLOBIN 23 pg (25-34); MEAN CORPUSCULAR HGB CONC 31 g/dL (32-36); MEAN CORPUSCULAR VOLUME 73 fL (80-99); MEAN PLATELET VOLUME 10.1 fL (9.0-12.2); MONOCYTES # (AUTO) 1.7 10^3/uL (0.0-1.0); MONOCYTES % (AUTO) 8 % (0-12); NEUTROPHILS # (AUTO) 17.8 10^3/uL (1.8-7.8); NEUTROPHILS % (AUTO) 86 % (42-75); PLATELET COUNT 252 10^3/uL (130-400); WHITE BLOOD COUNT 20.8 10^3/uL (4.3-11.0)
[2023-02-28] MEDS ORDERED: GABAPENTIN 300 MG (NEURONTIN) CAP ONE (06:18)
[2023-02-28] MEDS: GABAPENTIN 300 MG (NEURONTIN) CAP PO SCH ×4 (06:19→21:13)
[2023-02-28] MEDS: inSUlin ASPART (NovoLOG) 1 UNIT/0.01 ML (CHARGE PER UNIT) SC SCH ×4 (06:19→21:20)
[2023-02-28 06:29] LABS: POTASSIUM 3.4 MMOL/L (3.6-5.0)
[2023-02-28 06:30] LABS: CALCIUM 8.5 MG/DL (8.5-10.1)
[2023-02-28 06:34] LABS: CREATININE SERUM 0.86 MG/DL (0.60-1.30)
--- NOTE | 2023-02-28 06:45 | Diagnostic Imaging Report ---
PROCEDURE: CT angiography Chest TECHNIQUE: After intravenous administration of contrast, thin section axial CT angiography of the chest was performed. 3D MIP reconstructions were made. All CT scans use one or more of the following dose optimizing techniques: automated exposure control, MA and/or KvP adjustment based on a patient size and exam type, or iterative reconstruction. INDICATION: Shortness of breath and tachycardia COMPARISON: 11/10/2020 FINDINGS: Vasculature: No pulmonary emboli. No CT evidence of pulmonary hypertension or right ventricular strain. Thoracic aorta is normal in caliber. No aortic dissection or pseudoaneurysm. Heart and mediastinum: Visualized thyroid is normal. No supraclavicular, axillary, or intra-thoracic lymphadenopathy. The heart is normal in size without pericardial effusion. Large sliding-type hiatal hernia. The esophagus is fluid-filled and moderately distended. Pleura: No pleural effusion or pneumothorax. Lungs and airway: No endoluminal lesion in the trachea or central bronchi. Right upper lobe subtotal consolidations have developed. Upper abdomen: Low-attenuation liver is due to steatosis. Musculoskeletal: No concerning osseous lesion. IMPRESSION: 1. No pulmonary emboli or acute aortic syndrome. 2. Right upper lobe consolidations are highly likely pneumonia. Recommend follow-up PA and lateral chest radiographs in 4-6 weeks after appropriate antibiotic therapy to ensure resolution. 3. Large hiatal hernia with fluid-filled and mildly distended esophagus. Correlation for dysphagia is suggested. 4. Findings are in agreement with the preliminary report. Dictated by: Dictated on workstation # [id number]
--- NOTE | 2023-02-28 07:16 | History & Physical-Hospitalist ---
History of Present Illness HPI/Chief Complaint CC: Sepsis from PNA and new onset AF RVR HPI: This is a 67yoWF clinic patient of [facility] who has a h/o DM, HTN, HLP who pre sented to the ICU following an admit from [facility] for sepsis from PNA but remained tachycardic all night even though IVF given but then converted to new onset AF so Cardiology was consulted and patient was moved to ICU 5 for Cardizem drip. Source: patient Exam Limitations: no limitations Date Seen 02/28/23 Time Seen by a Provider: 11:00 Attending Physician [facility] PCP Admitting Physician: Cris Villarreal DO Attending Physician: Cris Villarreal DO Referring Physician Date of Admission Feb 28, 2023 at 03:25 Home Medications & Allergies Home Medications Reviewed patient Home Medication Reconciliation performed by pharmacy medication reconciliations surveying technician and/or nursing. Patients Allergies have been reviewed. Allergies Allergies Coded Allergies No Known Drug Allergies (Rzrybcdvvj03/11/20) Past Qazkxls-Vrcjnw-Cbqzdn Hx Patient Social History Marrital Status: single Employed/Student: retired Tobacco Use?: No Smoking Status: Former Smoker Use of E-Cig and/or Vaping dev: No Substance use?: No Alcohol Use?: No Pt feels they are or have been: No Immunizations Up To Date Date of Influenza Vaccine: Sep 05, 2020 Tetanus Booster (TDap): More Than 5 Years Hepatitis A: No Hepatitis B: No Date of Pneumonia Vaccine: Jun 23, 2020 Seasonal Allergies Seasonal Allergies: Yes Current Status status: No status: No Advance Directives: No Communicates: Verbally Primary Language: Luxembourger Preferred Spoken Language: Luxembourger Sensory deficits: Vision impairment Implanted or Applied Medical D: None Past Medical History Surgeries: Hysterectomy Pneumonia Hypertension Gastroesophageal Reflux Hypothyroidsim, Diabetes, Non-Insulin dep Review of Systems Constitutional: see HPI Respiratory: cough, dyspnea on exertion Cardiovascular: palpitations Physical Exam Physical Exam Vital Signs Vital Signs - First Documented 02/27/23 02/27/23 22:54 22:55 Temp 37.9 Pulse 130 Resp 30 B/P (MAP) 151/72 (98) Pulse Ox 90 O2 Delivery Room Air O2 Flow Rate 2.00 FiO2 95 Capillary Refill : Less Than 3 Seconds Height, Weight, BMI Height: '" Weight: lbs. oz. kg; 33.07 BMI Method: General Appearance: Anxious, Chronically ill Eyes: Right Eye Normal Inspection, Right Eye PERRL HEENT: PERRL/EOMI, Normal ENT Inspection, Pharynx Normal, Moist Mucous Membranes Neck: Full Range of Motion, Normal Inspection, Non Tender Respiratory: Chest Non Tender, No Accessory Muscle Use, No Respiratory Distress, Decreased Breath Sounds Cardiovascular: No Edema, No Gallop, No JVD, No Murmur, Normal Peripheral P ulses, Irregularly Irregular, Tachycardia Gastrointestinal: Normal Bowel Sounds, No Organomegaly, No Pulsatile Mass, Non Tender, Soft Back: Normal Inspection, No CVA Tenderness, No Vertebral Tenderness Extremity: Normal Capillary Refill, Normal Inspection, Normal Range of Motion, Non Tender, No Calf Tenderness, No Pedal Edema Neurologic/Psychiatric: Alert, Oriented x3, No Motor/Sensory Deficits, Normal Mood/Affect Skin: Normal Color, Warm/Dry Lymphatic: No Adenopathy Results Results/Procedures Labs Laboratory Tests 02/27/23 23:00 02/28/23 06:00 Patient resulted labs reviewed. Assessment/Plan Admission Diagnosis Assessment: Sepsis PNA CAP New onset AF RVR HTN DM HLP Plan: Cardiology appreciated Cardizem drip IV abx Admission Status: Inpatient Order (span 2 midnights) Reason for Inpatient Admission: sepsis PNA and AF RVR CRIS VILLARREAL DO Feb 28, 2023 07:16
[2023-02-28] MEDS ORDERED: ENOXAPARIN 40 MG/0.4 ML (LOVENOX) SYR SC SCH (07:30)
[2023-02-28] MEDS ORDERED: diphenhydrAMINE 50 MG/ML INJ (BENADRYL) IVP PRN (07:30)
[2023-02-28] MEDS ORDERED: MELATONIN 3 MG TABLET PO PRN (07:30)
[2023-02-28] MEDS ORDERED: HYDROmorphone 2 MG/ML VIAL (DILAUDID) IV PRN (07:30)
[2023-02-28] MEDS ORDERED: ONDANSETRON 4 MG (ZOFRAN) ORAL DISSOLVE TAB PO PRN (07:30)
[2023-02-28] MEDS ORDERED: diphenhydrAMINE 25 MG TAB (BENADRYL) PO PRN (07:30)
[2023-02-28] MEDS ORDERED: polyethylene glycoL POWDER 17 GM (MIRALAX) PACK PO PRN (07:30)
[2023-02-28] MEDS ORDERED: CALCIUM CARBONATE 500 MG (TUMS) TAB.CHEW PO PRN (07:30)
[2023-02-28] MEDS ORDERED: BISACODYL 10 MG SUPP (DULCOLAX) PR PRN (07:30)
[2023-02-28] MEDS ORDERED: MILK OF MAGNESIA 400 MG/5 ML 30 ML UDC PO PRN (07:30)
[2023-02-28] MEDS ORDERED: KCL 20 MEQ TAB (K-DUR) PO NR (07:30)
[2023-02-28] MEDS ORDERED: LACTULOSE SYRUP 10GM/15ML (ENULOSE) 30ML UDC PO PRN (07:30)
[2023-02-28] MEDS ORDERED: ANTACID SUSP 30 ML UDC (MYLANTA) PO PRN (07:30)
[2023-02-28] MEDS: SENNOSIDES 8.6 MG (SENOKOT) TAB PO SCH ×2 (08:13→19:58)
[2023-02-28] MEDS: DOCUSATE SODIUM 100 MG (COLACE) CAP PO SCH ×2 (08:13→19:58)
--- NOTE | 2023-02-28 10:26 | Consultation-Cardiology ---
HPI-Cardiology Cardiology Consultation Date of Consultation 02/28/23 Date of Admission Time Seen by Provider: 10:23 Indication: Atrial fibrillation HPI 67-year-old lady with history of diabetes mellitus, hyperlipidemia. Admitted for increasing shortness of breath, diagnosed with pneumonia. She has been in sinus tachycardia. This morning she went to atrial fibrillation with rapid ventricular response, heart rate is 1 40-1 60. She is short of breath. Denied any chest pain. No palpitation. No previous cardiac history. Home Medications & Allergies Allergies: Coded Allergies: No Known Drug Allergies (Unverified , 11/02/20) Home Medication List Reviewed: Yes [id number]-Wahndc Hx Patient Social History Marital Status: Employed/Student: retired Smoking Status: Former Smoker Recent Hopitalizations: No Have you traveled recently?: No Alcohol Use?: No Immunizations Up To Date Date of Pneumonia Vaccine: Jun 23, 2020 Date of Influenza Vaccine: Sep 05, 2020 Past Medical History Discussed below Family Medical History Significant Family History: No Pertinent Family Hx Review of Systems-General Review of Systems Constitutional: chills; No diaphoresis; fever (subjective), malaise, weakness EENTM: nose congestion Respiratory: cough, dyspnea on exertion; No hemoptysis, No orthopnea, No phlegm; short of breath; No stridor; wheezing Cardiovascular: see HPI; No chest pain, No edema, No Hx of Intervention; palpitations; No syncope, No vascular heart diseas, No other Gastrointestinal: see HPI, diarrhea; No nausea, No vomiting Genitourinary: see HPI; No dysuria Musculoskeletal: no symptoms reported, see HPI Skin: see HPI; No rash Psychiatric/Neurological: Anxiety Reviewed Test Results Reviewed Test Results Lab Laboratory Tests Test 02/27/23 23:00 02/28/23 06:00 02/28/23 06:10 Range/Units White Blood Count 17.7 H 20.8 H 4.3-11.0 10^3/uL Red Blood Count 4.45 4.08 3.80-5.11 10^6/uL Hemoglobin 10.1 L 9.2 L 11.5-16.0 g/dL Hematocrit 32 L 30 L 35-52 % Mean Corpuscular Volume 73 L 73 L 80-99 fL Mean Corpuscular Hemoglobin 23 L 23 L 25-34 pg Mean Corpuscular Hemoglobin Concent 31 L 31 L 32-36 g/dL Red Cell Distribution Width 16.0 H 15.9 H 10.0-14.5 % Platelet Count 240 252 130-400 10^3/uL Mean Platelet Volume 9.6 10.1 9.0-12.2 fL Immature Granulocyte % (Auto) 8 1 % Neutrophils (%) (Auto) 80 H 86 H 42-75 % Lymphocytes (%) (Auto) 4 L 4 L 12-44 % Monocytes (%) (Auto) 8 8 0-12 % Eosinophils (%) (Auto) 0 0 0-10 % Basophils (%) (Auto) 0 0 0-10 % Neutrophils # (Auto) 14.2 H 17.8 H 1.8-7.8 10^3/uL Lymphocytes # (Auto) 0.7 L 0.9 L 1.0-4.0 10^3/uL Monocytes # (Auto) 1.4 H 1.7 H 0.0-1.0 10^3/uL Eosinophils # (Auto) 0.0 0.0 0.0-0.3 10^3/uL Basophils # (Auto) 0.0 0.0 0.0-0.1 10^3/uL Immature Granulocyte # (Auto) 1.4 H 0.3 H 0.0-0.1 10^3/uL Neutrophils % (Manual) 87 % Lymphocytes % (Manual) 5 % Monocytes % (Manual) 5 % Band Neutrophils 3 % Prothrombin Time 14.5 12.2-14.7 SEC INR Comment 1.1 0.8-1.4 Activated Partial Thromboplast Time 33 24-35 SEC D-Dimer 2.39 H 0.00-0.49 UG/ML Sodium Level 129 L 134 L 135-145 MMOL/L Potassium Level 3.4 L 3.4 L 3.6-5.0 MMOL/L Chloride Level 95 L 104 98-107 MMOL/L Carbon Dioxide Level 22 19 L 21-32 MMOL/L Anion Gap 12 11 5-14 MMOL/L Blood Urea Nitrogen 16 15 7-18 MG/DL Creatinine 0.78 0.86 0.60-1.30 MG/DL Estimat Glomerular Filtration Rate 84 74 BUN/Creatinine Ratio 21 17 Glucose Level 307 H 280 H 70-105 MG/DL Lactic Acid Level 1.78 0.50-2.00 MMOL/L Calcium Level 8.9 8.5 8.5-10.1 MG/DL Corrected Calcium 9.5 8.5-10.1 MG/DL Magnesium Level 1.5 L 1.6-2.4 MG/DL Total Bilirubin 1.1 H 0.1-1.0 MG/DL Aspartate Amino Transf (AST/SGOT) 10 5-34 U/L Alanine Aminotransferase (ALT/SGPT) 12 0-55 U/L Alkaline Phosphatase 101 40-136 U/L Troponin I < 0.30 <0.30 NG/ML C-Reactive Protein 14.33 H <0.50 MG/DL Pro-B-Type Natriuretic Peptide 960.3 H <125.0 PG/ML Total Protein 6.7 6.4-8.2 GM/DL Albumin 3.3 3.2-4.5 GM/DL Procalcitonin 3.03 H <0.10 NG/ML Glucometer 271 H 70-110 MG/DL Physical Exam Physical Exam Vital Signs Vital Signs - First Documented 02/27/23 02/27/23 22:54 22:55 Temp 37.9 Pulse 130 Resp 30 B/P (MAP) 151/72 (98) Pulse Ox 90 O2 Delivery Room Air O2 Flow Rate 2.00 FiO2 95 Capillary Refill : Less Than 3 Seconds Height, Weight, BMI Height: '" Weight: lbs. oz. kg; 33.07 BMI Method: General Appearance: Anxious, Moderate Distress, Obese Eyes: Bilateral Eye Normal Inspection, Bilateral Eye PERRL, Bilateral Eye EOMI HEENT: PERRL/EOMI; No Moist Mucous Membranes (slightly dry mucous membranes) Neck: Full Range of Motion, Normal Inspection, Non Tender, Supple Respiratory: Chest Non Tender, Accessory Muscle Use, Decreased Breath Sounds, Respiratory Distress; No Rhonci, No Stridor Cardiovascular: Normal Peripheral Pulses, Tachycardia Gastrointestinal: Normal Bowel Sounds, No Pulsatile Mass, Non Tender, Soft Rectal: Deferred Back: Normal Inspection, No CVA Tenderness, No Vertebral Tenderness Extremity: Normal Capillary Refill, Normal Inspection, No Calf Tenderness, No Pedal Edema Neurologic/Psychiatric: Alert, Oriented x3 Skin: Normal Color, Warm/Dry Lymphatic: No Adenopathy A/P-Cardiology Admission Diagnosis Atrial fibrillation Pneumonia Shortness of breath Diabetes mellitus Hyperlipidemia Assessment/Plan Atrial fibrillation with rapid ventricular response New onset Patient was started on Cardizem bolus and a drip with IV fluid to support her blood pressure Starting on Eliquis I will evaluate 2D echo CHADVASC score 3, starting Eliquis 5 mg twice daily Pneumonia, receiving antibiotics. Monitored Diabetes mellitus, followed and managed by primary care physician Hypothyroidism, evaluate TSH Hyperlipidemia maintained on atorvastatin KAYLEE ARREDONDO MD Feb 28, 2023 10:26
[2023-02-28] MEDS ORDERED: dilTIAZem DRIP PRE-MIX 125 ML IV SCH (10:30)
[2023-02-28] MEDS ORDERED: dilTIAZem DRIP PRE-MIX 125 ML IV ONE (10:32)
[2023-02-28] MEDS: APIXABAN 5 MG (ELIQUIS) TABLET PO SCH ×2 (11:14→21:13)
[2023-02-28] MEDS ORDERED: LEVO150T6 PO (11:42)
[2023-02-28] MEDS ORDERED: GABA300C PO (11:42)
[2023-02-28] MEDS ORDERED: PANTOPRAZOLE 20 MG TABLET (PROTONIX) PO PRN (12:15)
[2023-02-28] MEDS: metFORMIN 500 MG (GLUCOPHAGE) TAB PO SCH (12:48)
--- NOTE | 2023-02-28 13:22 | Tele-ICU Progress Note ---
Progress Note 67 y/o female admitted yesterday with PNA Transferred to ICU today for a fib, rvr Started on diltiazem drip On ceftriaxone for PNA IMP: PNA A fib, RVR PLAN: antibiotics Diltiazem drip Focused Exam Lactate Level 02/27/23 23:00: Lactic Acid Level 1.78 Height, Weight, BMI Height: '" Weight: lbs. oz. kg; 33.07 BMI Method: Labs Laboratory Tests 02/27/23 23:00 02/28/23 06:00 Results Results/Procedures Labs Laboratory Tests 02/27/23 23:00 02/28/23 06:00 Patient resulted labs reviewed. Results Labs Labs Laboratory Tests 02/27/23 23:00: White Blood Count 17.7H, Red Blood Count 4.45, Hemoglobin 10.1L, Hematocrit 32L, Mean Corpuscular Volume 73L, Mean Corpuscular Hemoglobin 23L, Mean Corpuscular Hemoglobin Concent 31L, Red Cell Distribution Width 16.0H, Platelet Count 240, Mean Platelet Volume 9.6, Immature Granulocyte % (Auto) 8, Neutrophils (%) (Auto) 80H, Lymphocytes (%) (Auto) 4L, Monocytes (%) (Auto) 8, Eosinophils (%) (Auto) 0, Basophils (%) (Auto) 0, Neutrophils # (Auto) 14.2H, Lymphocytes # (Auto) 0.7L, Monocytes # (Auto) 1.4H, Eosinophils # (Auto) 0.0, Basophils # (Auto) 0.0, Immature Granulocyte # (Auto) 1.4H, Neutrophils % (Manual) 87, Lymphocytes % (Manual) 5, Monocytes % (Manual) 5, Band Neutrophils 3, Prothrombin Time 14.5, INR Comment 1.1, Activated Partial Thromboplast Time 33, D-Dimer 2.39H, Sodium Level 129L, Potassium Level 3.4L, Chloride Level 95L, Carbon Dioxide Level 22, Anion Gap 12, Blood Urea Nitrogen 16, Creatinine 0.78, Estimat Glomerular Filtration Rate 84, BUN/Creatinine Ratio 21, Glucose Level 307H, Lactic Acid Level 1.78, Calcium Level 8.9, Corrected Calcium 9.5, Magnesium Level 1.5L, Total Bilirubin 1.1H, Aspartate Amino Transf (AST/SGOT) 10, Alanine Aminotransferase (ALT/SGPT) 12, Alkaline Phosphatase 101, Troponin I < 0.30, C-Reactive Protein 14.33H, Pro-B-Type Natriuretic Peptide 960.3H, Total Protein 6.7, Albumin 3.3 02/28/23 06:00: White Blood Count 20.8H, Red Blood Count 4.08, Hemoglobin 9.2L, Hematocrit 30L, Mean Corpuscular Volume 73L, Mean Corpuscular Hemoglobin 23L, Mean Corpuscular Hemoglobin Concent 31L, Red Cell Distribution Width 15.9H, Platelet Count 252, Mean Platelet Volume 10.1, Immature Granulocyte % (Auto) 1, Neutrophils (%) (Auto) 86H, Lymphocytes (%) (Auto) 4L, Monocytes (%) (Auto) 8, Eosinophils (%) (Auto) 0, Basophils (%) (Auto) 0, Neutrophils # (Auto) 17.8H, Lymphocytes # (Auto) 0.9L, Monocytes # (Auto) 1.7H, Eosinophils # (Auto) 0.0, Basophils # (Auto) 0.0, Immature Granulocyte # (Auto) 0.3H, Sodium Level 134L, Potassium Level 3.4L, Chloride Level 104, Carbon Dioxide Level 19L, Anion Gap 11, Blood Urea Nitrogen 15, Creatinine 0.86, Estimat Glomerular Filtration Rate 74, BUN/Creatinine Ratio 17, Glucose Level 280H, Calcium Level 8.5, Procalcitonin 3.03H, Thyroid Stimulating Hormone (TSH) 0.05L 02/28/23 06:10: Glucometer 271H 02/28/23 10:20: Glucometer 261H AGAPITO FERREIRA MD Feb 28, 2023 13:22
[2023-02-28] MEDS ORDERED: guaiFENesin/DM (ROBITUSSIN DM) 10 ML UDC ONE (18:50)
[2023-02-28] MEDS: guaiFENesin/DM (ROBITUSSIN DM) 10 ML UDC PO PRN ×2 (18:51→23:01)
[2023-02-28] MEDS: AZITHROMYCIN 250 MG TAB (ZITHROMAX) PO SCH (21:13)
[2023-02-28] MEDS: cefTRIAXone 1 GM IV (PRE-MIX) 50 ML IV SCH (21:13)
[2023-03-01] VITALS (12 sets, daily range): BP systolic 107–161; BP diastolic 62–86
[2023-03-01 05:04] LABS: BASOPHILS % (AUTO) 0 % (0-10); EOSINOPHILS # (AUTO) 0.1 10^3/uL (0.0-0.3); EOSINOPHILS % (AUTO) 1 % (0-10); HEMATOCRIT 26 % (35-52); HEMOGLOBIN 8.1 g/dL (11.5-16.0); LYMPHOCYTES # (AUTO) 1.5 10^3/uL (1.0-4.0); LYMPHOCYTES % (AUTO) 12 % (12-44); MEAN CORPUSCULAR HEMOGLOBIN 23 pg (25-34); MEAN CORPUSCULAR HGB CONC 31 g/dL (32-36); MEAN CORPUSCULAR VOLUME 74 fL (80-99); MEAN PLATELET VOLUME 10.4 fL (9.0-12.2); MONOCYTES # (AUTO) 0.9 10^3/uL (0.0-1.0); MONOCYTES % (AUTO) 8 % (0-12); NEUTROPHILS # (AUTO) 9.9 10^3/uL (1.8-7.8); NEUTROPHILS % (AUTO) 79 % (42-75); PLATELET COUNT 218 10^3/uL (130-400); WHITE BLOOD COUNT 12.5 10^3/uL (4.3-11.0)
[2023-03-01 05:14] LABS: ALBUMIN 2.9 GM/DL (3.2-4.5); POTASSIUM 3.7 MMOL/L (3.6-5.0)
[2023-03-01 05:15] LABS: CALCIUM 8.4 MG/DL (8.5-10.1)
[2023-03-01 05:16] LABS: TOTAL PROTEIN 5.5 GM/DL (6.4-8.2)
[2023-03-01 05:18] LABS: BILIRUBIN,TOTAL 0.4 MG/DL (0.1-1.0)
[2023-03-01 05:20] LABS: CREATININE SERUM 0.68 MG/DL (0.60-1.30)
[2023-03-01] MEDS: inSUlin ASPART (NovoLOG) 1 UNIT/0.01 ML (CHARGE PER UNIT) SC SCH ×4 (05:23→21:33)
[2023-03-01] MEDS ORDERED: NS IV 500 ML 500 ML IV PRN (05:30)
[2023-03-01] MEDS ORDERED: KCL 20 MEQ TAB (K-DUR) PO ONE ×2 (05:30→05:31)
[2023-03-01] MEDS: NS IV 1000 ML 1,000 ML IV SCH (05:34)
[2023-03-01] MEDS: MULTIVIT W/MINERALS TAB (THERAGRAN M) PO SCH (05:34)
[2023-03-01] MEDS: KCL 20 MEQ TAB (K-DUR) PO SCH (05:35)
[2023-03-01 05:43] LABS: PHOSPHORUS 1.8 MG/DL (2.3-4.7)
[2023-03-01 05:45] LABS: MAGNESIUM 1.8 MG/DL (1.6-2.4)
[2023-03-01] MEDS ORDERED: KCL 20 MEQ TAB (K-DUR) PO SCH (06:00)
[2023-03-01] MEDS ORDERED: MAGNESIUM 1 GM/100 ML IVPB 100 ML IV SCH (06:00)
[2023-03-01] MEDS ORDERED: POTASSIUM CL 10MEQ/50ML IVPB 50 ML IV SCH (06:00)
--- NOTE | 2023-03-01 06:04 | Progress Note - Hospitalist ---
Subjective HPI/CC On Admission Date Seen by Provider: Mar 01, 2023 Time Seen by Provider: 09:00 CC: Sepsis from PNA and new onset AF RVR HPI: This is a 67yoWF clinic patient of [facility] who has a h/o DM, HTN, HLP who presented to the ICU following an admit from [facility] for sepsis from PNA but remained tachycardic all night even though IVF given but then converted to new onset AF so Cardiology was consulted and patient was moved to ICU 5 for Cardizem drip. Subjective/Events-last exam Improved overall Cardiology appreciated Feels better HLIVF Eating ok Cough improved Review of Systems General: Fatigue, Malaise Pulmonary: Dyspnea, Cough Focused Exam Lactate Level 02/27/23 23:00: Lactic Acid Level 1.78 Objective Exam Vital Signs Vital Signs Date Time Temp Pulse Resp B/P (MAP) Pulse Ox O2 Delivery O2 Flow Rate FiO2 03/01/23 13:00 92 03/01/23 12:00 94 Nasal Cannula 2.00 03/01/23 12:00 36.4 03/01/23 11:00 137/73 (92) 03/01/23 10:00 29 02/28/23 04:18 28 Capillary Refill : Less Than 3 Seconds General Appearance: No Apparent Distress, WD/WN, Chronically ill Respiratory: Lungs Clear, Normal Breath Sounds Cardiovascular: Regular Rate, Rhythm Neurologic/Psychiatric: Alert, Oriented x3, No Motor/Sensory Deficits, Normal Mood/Affect Results/Procedures Lab Laboratory Tests 03/01/23 04:41 Patient resulted labs reviewed. Assessment/Plan Assessment and Plan Assess & Plan/Chief Complaint Assessment: Sepsis PNA CAP New onset AF RVR HTN DM HLP Plan: Cardiology appreciated Cardizem PO Move to floor HLIVF Wean O2 IV abx GISSELLE YARBROUGH DO Mar 01, 2023 06:04
[2023-03-01] MEDS: APIXABAN 5 MG (ELIQUIS) TABLET PO SCH ×2 (07:49→21:33)
[2023-03-01] MEDS: GABAPENTIN 300 MG (NEURONTIN) CAP PO SCH ×4 (07:49→21:33)
--- NOTE | 2023-03-01 08:26 | Tele-ICU Progress Note ---
Subjective Date Seen by a Provider: Mar 01, 2023 Time Seen by a Provider: 08:21 Subjective/Events-last exam Service provided via interactive audio and video telecommunBig Box Overstocks E-CARE system to a patient admitted to ICU bed in [facility]. Patient is seen today due to persistent need of ICU care Available chart/ vitals / labs / Images reviewed Video assessment done using teleICU camera, rest of exam as per RN Discussed with RN 67 yo F with new onset a fib/RVR, was on IV Cardizem-converted, now off and on po Cardizem @ 240 mg/d , Eliquis also on CXR has dense RUL infiltrate and hiatal hernia with fluid filled esophagus, started on IV Rocephin and po azithromycin. No resp distress, Is coughing but dry, audible rhonchi Sepsis Event Evaluation Height, Weight, BMI Height: '" Weight: lbs. oz. kg; 36.24 BMI Method: Focused Exam Lactate Level 02/27/23 23:00: Lactic Acid Level 1.78 Exam Exam Patient acknowledged, consented, and participated in this virtual visit which was conducted using real time audio/video Vital Signs Date Time Temp Pulse Resp B/P (MAP) Pulse Ox O2 Delivery O2 Flow Rate FiO2 03/01/23 08:00 36.4 03/01/23 06:00 83 28 130/78 (95) 96 Nasal Cannula 2.00 03/01/23 05:00 84 26 141/86 (104) 96 Nasal Cannula 2.00 03/01/23 04:00 74 22 107/69 (82) 94 Nasal Cannula 2.00 03/01/23 04:00 94 Nasal Cannula 2.00 03/01/23 03:00 79 24 114/70 (85) 96 Nasal Cannula 2.00 03/01/23 02:00 82 20 114/67 (83) 96 Nasal Cannula 2.00 03/01/23 01:00 80 23 110/65 (80) 94 Nasal Cannula 2.00 03/01/23 00:55 79 03/01/23 00:00 84 25 118/69 (85) 96 Nasal Cannula 2.00 02/28/23 23:05 93 Nasal Cannula 2.00 02/28/23 23:00 94 16 119/67 (84) 90 Nasal Cannula 2.00 02/28/23 22:57 36.7 89 18 94 Nasal Cannula 2.00 02/28/23 22:00 80 23 134/66 (88) 92 Nasal Cannula 2.00 02/28/23 21:00 84 15 113/68 (83) 95 Nasal Cannula 2.00 02/28/23 20:00 86 14 124/74 (91) 97 Nasal Cannula 2.00 02/28/23 19:50 97 Nasal Cannula 2.00 02/28/23 19:26 97 Room Air 02/28/23 19:03 86 02/28/23 19:00 37.1 86 16 135/78 (97) 96 Nasal Cannula 2.00 02/28/23 19:00 86 20 135/78 (97) 98 Nasal Cannula 2.00 02/28/23 18:00 87 14 122/79 (92) Nasal Cannula 2.00 02/28/23 17:00 82 78 111/68 (90) Nasal Cannula 2.00 02/28/23 16:00 81 23 105/55 (80) Nasal Cannula 2.00 02/28/23 15:23 36.8 02/28/23 15:00 89 11 129/67 (93) 95 Nasal Cannula 2.00 02/28/23 14:00 84 29 105/72 (89) 95 Nasal Cannula 2.00 02/28/23 13:00 92 18 109/65 (77) 86 Nasal Cannula 2.00 02/28/23 13:00 96 02/28/23 12:00 93 15 123/70 (81) 95 Nasal Cannula 2.00 02/28/23 11:49 36.6 02/28/23 11:00 130 30 100/75 (80) 97 Nasal Cannula 2.00 02/28/23 10:38 161 91/80 02/28/23 10:36 161 91/80 I & O 03/01/23 07:00 Intake Total 5660 ml Output Total 1200 ml Balance 4460 ml Height & Weight Height: '" Weight: lbs. oz. kg; 36.24 BMI Method: General Appearance: Anxious, Chronically ill, Mild Distress HEENT: PERRL/EOMI, Normal ENT Inspection, Pharynx Normal, Moist Mucous Membranes Neck: Full Range of Motion, Normal Inspection, Non Tender Respiratory: Chest Non Tender, No Accessory Muscle Use, No Respiratory Distress, Decreased Breath Sounds Cardiovascular: Regular Rate, Rhythm, No Edema, No Gallop, No JVD, No Murmur, Normal Peripheral Pulses, Irregularly Irregular, Tachycardia Capillary Refill: Less Than 3 Seconds Gastrointestinal: normal bowel sounds, non tender, soft Extremity: Normal Capillary Refill, Normal Inspection, Normal Range of Motion, Non Tender, No Calf Tenderness, No Pedal Edema, Other (having diarrhea) Neurologic/Psychiatric: Alert, Oriented x3, No Motor/Sensory Deficits, Normal Mood/Affect Skin: Normal Color, Warm/Dry Lymphatic: No Adenopathy Results Lab Laboratory Tests 02/27/23 23:00 02/28/23 06:00 03/01/23 04:41 Assessment/Plan Assessment/Plan A fib RVR with conrolled V rate has changed to sinus with PAC's, changed over to po cardizem PNA, will continue with abx has large hiatal hernia with fluid filled esophagus, may be cause of PNA, may need repair,would have GI see Critical Care: Critically Ill Patient Time spent with patient (mins): 25 AGAPITO RUST MD Mar 01, 2023 08:26
[2023-03-01] MEDS: DOCUSATE SODIUM 100 MG (COLACE) CAP PO SCH ×2 (08:40→21:33)
[2023-03-01] MEDS: metFORMIN 500 MG (GLUCOPHAGE) TAB PO SCH (08:40)
[2023-03-01] MEDS: SENNOSIDES 8.6 MG (SENOKOT) TAB PO SCH ×2 (08:41→21:33)
--- NOTE | 2023-03-01 09:44 | Cardiology Progress Note ---
Subjective Date Seen by Provider: Mar 01, 2023 Time Seen by Provider: 09:43 Subjective/Events-last exam Patient is laying down in bed, feeling better Asking to go home. No chest pain was reported Review of Systems General: No Chills, No Night Sweats, No Fatigue, No Malaise, No Appetite, No Other HEENT: No Head Aches, No Visual Changes, No Eye Pain, No Ear Pain, No D ysphasia, No Sinus Congestion, No Post Nasal Drip, No Sore Throat, No Other Pulmonary: Dyspnea; No Cough, No Pleuritic Chest Pain, No Other Cardiovascular: No: Chest Pain, Palpitations, Orthopnea, Paroxysmal Noc. Dyspnea, Edema, Lt Headedness, Other Focused Exam Lactate Level 02/27/23 23:00: Lactic Acid Level 1.78 Objective-Cardiology Exam Last Set of Vital Signs Vital Signs 02/28/23 03/01/23 04:18 09:00 Pulse 90 Resp 29 Pulse Ox 98 O2 Delivery Nasal Cannula O2 Flow Rate 2.00 FiO2 28 I&O Intake and Output 03/01/23 00:00 Intake Total 5070 ml Output Total 750 ml Balance 4320 ml Intake Oral 1435 ml IV Total 3635 ml Output Urine Total 750 ml # Voids 1 # Bowel Movements 3 Daily Weight Change No General: Alert, Oriented X3, Cooperative HEENT: Atraumatic, PERRLA Neck: Supple, No JVD, No Thyromegaly Lungs: Clear to Auscultation, Normal Air Movement Heart: Regular Rate, Normal S1, Normal S2, No Murmurs Abdomen: Normal Bowel Sounds, Soft, No Tenderness, No Hepatosplenomegaly, No Masses Extremities: No Clubbing, No Cyanosis, No Edema, Normal Pulses, No Tenderness/Swelling Skin: No Rashes, No Breakdown, No Significant Lesion Neuro: Normal Gait, Normal Speech, Strength at 5/5 X4 Ext, Normal Tone, Sensation Intact Psych/Mental Status: Mental Status NL, Mood NL Results Lab Laboratory Tests 03/01/23 04:41 A/P-Cardiology Admission Diagnosis Atrial fibrillation Pneumonia Shortness of breath Diabetes mellitus Hyperlipidemia Assessment/Plan Atrial fibrillation with rapid ventricular response Converted to sinus rhythm on Cardizem. Still having frequent APCs I will switch her to long-acting Cardizem and add Multaq CHADVASC score 3, starting Eliquis 5 mg twice daily Pneumonia, receiving antibiotics. Managed by primary care physician Diabetes mellitus, followed and managed by primary care physician Hypothyroidism, evaluate TSH Hyperlipidemia maintained on atorvastatin Okay for discharge from cardiology standpoint KAYLEE ARREDONDO MD Mar 01, 2023 09:44
[2023-03-01] MEDS: DRONEDARONE 400 MG TABLET PO SCH ×2 (10:13→21:33)
[2023-03-01] MEDS: cefTRIAXone 1 GM IV (PRE-MIX) 50 ML IV SCH (21:32)
[2023-03-01] MEDS: AZITHROMYCIN 250 MG TAB (ZITHROMAX) PO SCH (21:33)
[2023-03-02] VITALS: BP 156/76
[2023-03-02 03:15] VITALS: BP 137/76
[2023-03-02] MEDS: MULTIVIT W/MINERALS TAB (THERAGRAN M) PO SCH (05:14)
[2023-03-02] MEDS: KCL 20 MEQ TAB (K-DUR) PO SCH (05:14)
[2023-03-02 05:52] LABS: BASOPHILS % (AUTO) 1 % (0-10); EOSINOPHILS # (AUTO) 0.1 10^3/uL (0.0-0.3); EOSINOPHILS % (AUTO) 1 % (0-10); HEMATOCRIT 30 % (35-52); HEMOGLOBIN 9.3 g/dL (11.5-16.0); LYMPHOCYTES # (AUTO) 1.4 10^3/uL (1.0-4.0); LYMPHOCYTES % (AUTO) 19 % (12-44); MEAN CORPUSCULAR HEMOGLOBIN 23 pg (25-34); MEAN CORPUSCULAR HGB CONC 31 g/dL (32-36); MEAN CORPUSCULAR VOLUME 73 fL (80-99); MEAN PLATELET VOLUME 10.2 fL (9.0-12.2); MONOCYTES # (AUTO) 0.6 10^3/uL (0.0-1.0); MONOCYTES % (AUTO) 8 % (0-12); NEUTROPHILS # (AUTO) 5.3 10^3/uL (1.8-7.8); NEUTROPHILS % (AUTO) 69 % (42-75); PLATELET COUNT 281 10^3/uL (130-400); WHITE BLOOD COUNT 7.7 10^3/uL (4.3-11.0)
[2023-03-02 06:06] LABS: POTASSIUM 3.6 MMOL/L (3.6-5.0)
[2023-03-02 06:07] LABS: CALCIUM 8.6 MG/DL (8.5-10.1)
[2023-03-02 06:10] LABS: BILIRUBIN,TOTAL 0.3 MG/DL (0.1-1.0)
[2023-03-02 06:12] LABS: CREATININE SERUM 0.72 MG/DL (0.60-1.30)
[2023-03-02] MEDS: inSUlin ASPART (NovoLOG) 1 UNIT/0.01 ML (CHARGE PER UNIT) SC SCH ×2 (06:43→11:04)
[2023-03-02 07:17] VITALS: BP 123/75
[2023-03-02] MEDS: DOCUSATE SODIUM 100 MG (COLACE) CAP PO SCH (08:07)
[2023-03-02] MEDS: SENNOSIDES 8.6 MG (SENOKOT) TAB PO SCH (08:08)
[2023-03-02] MEDS: metFORMIN 500 MG (GLUCOPHAGE) TAB PO SCH (09:32)
[2023-03-02] MEDS: APIXABAN 5 MG (ELIQUIS) TABLET PO SCH (09:32)
[2023-03-02] MEDS: GABAPENTIN 300 MG (NEURONTIN) CAP PO SCH (09:32)
[2023-03-02] MEDS: DRONEDARONE 400 MG TABLET PO SCH (09:32)
--- NOTE | 2023-03-02 09:37 | Cardiology Progress Note ---
Subjective Date Seen by Provider: Mar 02, 2023 Time Seen by Provider: 08:15 Subjective/Events-last exam Patient is sitting up in bed, denies any chest pain or dyspnea. Focused Exam Lactate Level 02/27/23 23:00: Lactic Acid Level 1.78 Objective-Cardiology Exam Last Set of Vital Signs Vital Signs 02/28/23 03/02/23 04:18 07:17 Temp 36.6 Pulse 80 Resp 18 B/P (MAP) 123/75 (91) Pulse Ox 93 O2 Delivery Room Air FiO2 28 I&O Intake and Output 03/02/23 00:00 Intake Total 2620 ml Output Total 950 ml Balance 1670 ml Intake Oral 1620 ml IV Total 1000 ml Output Urine Total 950 ml # Voids 3 # Bowel Movements 4 General: Alert, Oriented X3, Cooperative HEENT: Atraumatic, PERRLA Neck: Supple, No JVD, No Thyromegaly Lungs: Clear to Auscultation, Normal Air Movement Heart: Regular Rate, Normal S1, Normal S2, No Murmurs Abdomen: Normal Bowel Sounds, Soft, No Tenderness, No Hepatosplenomegaly, No Ma sses Extremities: No Clubbing, No Cyanosis, No Edema, Normal Pulses, No Tender ness/Swelling Skin: No Rashes, No Breakdown, No Significant Lesion Neuro: Normal Gait, Normal Speech, Strength at 5/5 X4 Ext, Normal Tone, Sensation Intact Psych/Mental Status: Mental Status NL, Mood NL Results Lab Laboratory Tests 03/02/23 05:22 A/P-Cardiology Admission Diagnosis Atrial fibrillation Pneumonia Shortness of breath Diabetes mellitus Hyperlipidemia Assessment/Plan Atrial fibrillation with rapid ventricular response Converted to sinus rhythm on Cardizem. Still having frequent APCs Currentrly on long-acting Cardizem and add Multaq CHADVASC score 3, starting Eliquis 5 mg twice daily Pneumonia, receiving antibiotics. Managed by primary care physician Diabetes mellitus, followed and managed by primary care physician Hypothyroidism, evaluate TSH Hyperlipidemia maintained on atorvastatin Okay for discharge from cardiology standpoint OTILIO MCKINNEY Mar 02, 2023 09:37
--- NOTE | 2023-03-02 11:08 | Discharge Summary ---
Diagnosis/Chief Complaint Date of Admission Feb 28, 2023 at 03:25 Date of Discharge 03/02/2023 Admission Diagnosis Admission Diagnosis Sepsis CAP New onset A fib with RVR HTN Hiatal Hernia DM HLD Normocytic anemia Discharge Diagnosis See Above Discharge Summary-Simple/Stand Consultations Dr Aguirre: Cardiology Discharge Physical Examination Allergies: Coded Allergies: No Known Drug Allergies (Unverified , 11/02/20) Vitals & I&Os Vital Sign - Last 12Hours Date Time Temp Pulse Resp B/P (MAP) Pulse Ox O2 Delivery O2 Flow Rate FiO2 03/02/23 08:00 Room Air 03/02/23 07:17 36.6 80 18 123/75 (91) 93 03/01/23 12:00 2.00 02/28/23 04:18 28 Intake and Output 03/02/23 00:00 Intake Total 945 ml Output Total 300 ml Balance 645 ml General Appearance: Alert, Oriented X3, No Acute Distress Respiratory: Clear to Auscultation, Normal Air Movement Cardiovascular: Regular Rate, No Murmurs, Other Abdominal: Normal Bowel Sounds, Soft, No Tenderness, No Masses Extremities: No Edema, No Tenderness/Swelling Neuro: Normal Speech, Strength at 5/5 X4 Ext Psych/Mental Status: Mental Status NL, Mood NL Hospital Course See final discharge diagnosis. Other pending tests Will need General Surgery consult for hiatal hernia repair and colonoscopy Discharge Condition at discharge stable Instructions to patient/family Please see electronic discharge instructions given to patient. Discharge Medications Reviewed and agree with Discharge Medication list on patient's Discharge Instruction sheet KATHIE BEASLEY MD Mar 02, 2023 11:08
[2023-03-02] MEDS ORDERED: APIX5TAB PO (11:10)
[2023-03-02] MEDS ORDERED: DRON400T6 PO (11:10)
[2023-03-02] MEDS ORDERED: AZIT250T12 PO (11:10)
[2023-03-02] MEDS ORDERED: DILT240C91 PO (11:10)
--- NOTE | 2023-03-02 11:11 | Discharge Summary ---
Discharge [facility] Reconcile Patient Problems Problems Reviewed?: Yes Discharge Medications New, Converted or Re-Newed RX: Transmitted to Pharmacy New Medications: Apixaban (Eliquis) 5 Mg Tablet 5 MG PO BID, #28 TAB Azithromycin (Azithromycin) 250 Mg Tablet 250 MG PO HS, #3 TAB Diltiazem HCl (Diltiazem 24Hr ER) 240 Mg Cap.er.24h 240 MG PO DAILY, #30 CAP Dronedarone HCl (Multaq) 400 Mg Tablet 400 MG PO BID, #60 TAB Continued Medications: Atorvastatin Calcium (Atorvastatin Calcium) 40 Mg Tablet 40 MG PO DAILY Esomeprazole Magnesium (Esomeprazole Magnesium) 20 Mg Capsule.dr 20 MG PO DAILY PRN for HEARTBURN MDD C, CAP Gabapentin (Neurontin) 300 Mg Capsule 300 MG PO QID, CAP Glipizide (Glipizide) 5 Mg Tablet 10 MG PO DAILY Levothyroxine Sodium (Levothyroxine Sodium) 150 Mcg Tablet PO DAILY, TAB Metformin HCl (Metformin HCl) 1,000 Mg Tablet 1000 MG PO DAILY W/ MEAL, TAB Multivitamin (Multivitamin) 1 Each Tablet 1 EACH PO DAILY, TAB Patient Instructions Goal/Follow Up Appt: 1 week with PCP Activity & Diet Discharge Diet: ADA Diet, Cardiac Diet Activity as Tolerated: Yes KATHIE BEASLEY MD Mar 02, 2023 11:11
== END 2023-03-02 11:21 | disposition home or self-care (01) | DRG 871 ==
LOC: EDUNIT# 22:52 → ER FS 22:56 → CSD 02-28 03:25 → ICU 02-28 11:29 → 4TH 03-01 14:17
PROVIDERS: ADMIT Internal Medicine; ATTEND Family Medicine
DX: A41.9 Sepsis, unspecified organism (principal); J18.9 Pneumonia, unspecified organism; E86.0 Dehydration; K44.9 Diaphragmatic hernia without obstruction or gangrene; I49.1 Atrial premature depolarization; R09.02 Hypoxemia; D64.9 Anemia, unspecified; R53.81 Other malaise; R53.1 Weakness; R06.00 Dyspnea, unspecified; R19.7 Diarrhea, unspecified; E11.9 Type 2 diabetes mellitus without complications; E03.9 Hypothyroidism, unspecified; E78.5 Hyperlipidemia, unspecified; F41.9 Anxiety disorder, unspecified; K21.9 Gastro-esophageal reflux disease without esophagitis; E83.42 Hypomagnesemia; R00.0 Tachycardia, unspecified; I48.91 Unspecified atrial fibrillation; I10 Essential (primary) hypertension; H54.7 Unspecified visual loss; Z87.891 Personal history of nicotine dependence; Z86.711 Personal history of pulmonary embolism; Z79.01 Long term (current) use of anticoagulants; Z79.82 Long term (current) use of aspirin; Z79.85 Long-term (current) use of injectable non-insulin antidiabetic drugs; Z79.84 Long term (current) use of oral hypoglycemic drugs; Z79.52 Long term (current) use of systemic steroids; Z79.899 Other long term (current) drug therapy
CPT/HCPCS: 36415; 71275; 80048; 80053; 82947; 83605; 83735; 83880; 84100; 84145; 84443; 84484; 85007; 85025; 85027; 85379; 85610; 85730; 86141; 87040; 93005; 93041; 93306; Q9967

== ENCOUNTER → 2023-05-14 | Outpatient (CLI) | payer MEDICARE, OTHER ==
[~2023-05-14] VITALS: Ht 170 cm; Wt 90.0 kg
[~2023-05-14] MED LIST changes: +CATHETER FLUSH 10 ML SYR IVP PRN; +DILT240C91 PO; +DRON400T6 PO; +GABA300C PO; +LEVO150T6 PO; +REGADENOSON 0.4 MG/5 ML SYR (LEXISCAN) IV ONE
[2023-05-14 08:29] VITALS: BP 156/92
== END ==
LOC: CARD 07:03
PROVIDERS: ATTEND Internal Medicine Cardiovascular Disease
DX: I48.0 Paroxysmal atrial fibrillation (principal)
CPT/HCPCS: 78452; 93017; A9502

== ENCOUNTER 2023-06-17 08:47 | Day surgery (SDC) | payer MEDICARE, OTHER ==
[2023-06-17] VITALS (9 sets, daily range): BP systolic 138–171; BP diastolic 70–98
[~2023-06-17] VITALS: Ht 170.2 cm; Wt 98.7 kg
[~2023-06-17 08:47] MED LIST changes: -CATHETER FLUSH 10 ML SYR IVP PRN; -REGADENOSON 0.4 MG/5 ML SYR (LEXISCAN) IV ONE
[2023-06-17 09:08] LABS: BILIRUBIN,URINE NEGATIVE (NEGATIVE); CLARITY,URINE CLEAR; COLOR,URINE YELLOW; GLUCOSE, URINE (UA) 3+ (NEGATIVE); KETONES,URINE NEGATIVE (NEGATIVE); LEUKOCYTE ESTERASE ,URINE NEGATIVE (NEGATIVE); NITRITE,URINE NEGATIVE (NEGATIVE); PROTEIN,URINE NEGATIVE (NEGATIVE)
[2023-06-17 09:08] LABS: HEMATOCRIT 33 % (35-52); HEMOGLOBIN 9.7 g/dL (11.5-16.0); MEAN CORPUSCULAR HEMOGLOBIN 21 pg (25-34); MEAN CORPUSCULAR HGB CONC 30 g/dL (32-36); MEAN CORPUSCULAR VOLUME 71 fL (80-99); MEAN PLATELET VOLUME 9.6 fL (9.0-12.2); PLATELET COUNT 382 10^3/uL (130-400); WHITE BLOOD COUNT 5.2 10^3/uL (4.3-11.0)
[2023-06-17 09:18] LABS: BACTERIA,URINE TRACE /HPF
[2023-06-17] MEDS ORDERED: NS IV 1000 ML 1,000 ML IV SCH ×2 (09:30→13:15)
[2023-06-17 09:33] LABS: PROTHROMBIN TIME PATIENT 13.7 SEC (12.2-14.7)
[2023-06-17] MEDS ORDERED: HEParin (CATH LAB) 2,000 ML IV ONE (09:35)
[2023-06-17] MEDS ORDERED: NS IV 1000 ML 1,000 ML ONE (09:35)
[2023-06-17] MEDS ORDERED: LIDOCAINE 1% INJ 20 ML VIAL ONE (09:35)
[2023-06-17 09:36] LABS: ALBUMIN 4.1 GM/DL (3.2-4.5); BILIRUBIN,TOTAL 0.5 MG/DL (0.1-1.0); CALCIUM 9.2 MG/DL (8.5-10.1); CREATININE SERUM 0.96 MG/DL (0.60-1.30); POTASSIUM 4.2 MMOL/L (3.6-5.0); TOTAL PROTEIN 7.2 GM/DL (6.4-8.2)
--- NOTE | 2023-06-17 09:58 | Diagnostic Imaging Report ---
INDICATION: Coronary artery disease COMPARISON: 11/11/2020 FINDINGS: Previous multifocal nodular infiltrates have all resolved today. The lungs clear. There is old healed left rib deformities chronic. Upper limits heart size present but no vascular congestion, edema or overt failure. IMPRESSION: Clear chest at follow-up. Dictated by: Dictated on workstation # [id number]
[2023-06-17] MEDS ORDERED: RIVA20TA PO (10:06)
[2023-06-17] MEDS ORDERED: GBPN600T PO (10:06)
[2023-06-17] MEDS ORDERED: ESOM40CA52 PO (10:06)
[2023-06-17] MEDS ORDERED: AMIO200T65 PO (10:06)
[2023-06-17] MEDS ORDERED: VERAPAMIL 5 MG/2 ML (CALAN) VIAL IV ONE (11:18)
[2023-06-17] MEDS ORDERED: MIDAZOLAM 5 MG/5 ML (VERSED) VIAL ONE (11:18)
[2023-06-17] MEDS ORDERED: HEParin 1000 UNIT/ML (10ML VIAL) FOR BOLUS ONE (11:18)
[2023-06-17] MEDS ORDERED: fentaNYL INJ 100 MCG/2 ML AMP ONE (11:18)
[2023-06-17] MEDS ORDERED: NITRO DRIP 25000 MCG/D5W 250 ML IV ONE (11:18)
--- NOTE | 2023-06-17 11:31 | Cardiac Procedure Note-CS/ASA ---
Pre-Procedure Note Pre-Op Procedure Note Date of Available H&P: May 19, 2023 Date H&P Reviewed: Jun 17, 2023 Time H&P Reviewed: 11:30 History & Physical: H&P Reviewed, Patient Examed, No changes noted Pre-Operative Diagnosis: CAD Moderate Sedation PreProcedure Time 11:31 ASA Score 3 Airway Lungs Heart ASA score ASA 1: a normal healthy patient ASA 2: a patient with a mild systemic disease (mid diabetes, controlled hypertension, obesity ASA 3: a patient with a severe systemic disease that limits activity (angina, COPD, prior Myocardial infarction) ASA 4: a patient with an incapacitating disease that is a constant threat to life (CHF, renal failure) ASA 5: a moribund patient not expected to survive 24 hrs. (ruptured aneurysm) ASA 6: a declared brain- patient whose organs are being harvested. For emergent operations, add the letter E after the classification Mallampati Classification Grade 3 Sedation Plan Analgesia, Amnesia, Plan communicated to team members, Discussed options with patient/fam, Discussed risks with patient/fam The patient is an appropriate candidate to undergo the planned procedure, sedation, and anesthesia. The patient immediately re-assessed prior to indication. KAYLEE ARREDONDO MD Jun 17, 2023 11:31
--- NOTE | 2023-06-17 13:10 | Discharge Inst-Post CATH ---
Discharge Inst-CATH/EP Problems Reviewed?: Yes Post Cardiac Cath/EP D/C Inst Follow Up/Plan Appointment with Dr. Aguirre's office in 2 to 4 weeks <b>CARDIAC CATH/EP PROCEDURE DISCHARGE INSTRUCTIONS</b> ACTIVITY * Go Home directly and rest. * Limit activity of the leg (or wrist if it was used) for 7 days including aer obics, swimming, jogging, bicycling, etc. * Restrict stair-climbing for 7 days if possible, if not, climb up with your non-cath leg, then bring together on the same step. * Avoid lifting, pushing, pulling or excessive movement of the affected extremi ty for 7 days. * Customary sexual activity may be resumed after 2 days-use caution not to use a position that strains or causes pain to the affected extremity. * No driving for 24 hours. * NO SMOKING. * Avoid straining for bowel movements for 7 days. * Gentle walking on level ground is allowed. * Returning to work will depend on the type of procedure and the results. Your doctor will discuss this with you. CALL YOUR DOCTOR FOR ANY OF THE FOLLOWING: *If bleeding from the puncture site occurs- Apply gentle pressure to site with clean cloth and call your doctor or EMS. * If a knot or lump forms under the skin, increases in size, or causes pain. * If bruising appears to be worsening or moving further down your leg instead of disappearing. * Temperature above 101 F. CARE OF YOUR GROIN INCISION; * Bruising or purple discoloration of the skin near the puncture site is common. * You may shower only, no bathtub bathing for 5 days. Be careful to avoid slipping as your leg may feel stiff. * If a closure device was used on your femoral artery, please see the attached guide regarding care of the device and your leg. * Leave dressing on FOR 24 hours. CARE OF YOUR WRIST INCISION; * Bruising or purple discoloration of the skin near the puncture site is common. * You may shower. * DO NOT submerge wrist. * Leave dressing on FOR 24 hours. KAYLEE AGUIRRE MD Jun 17, 2023 13:10
--- NOTE | 2023-06-17 13:14 | Cardiac Cath Report ---
Cardiac Cath Report Physician (s)/Educational Technologist (s) Physician KAYLEE ARREDONDO MD Pre-Procedure Diagnosis Pre-Procedure Diagnosis: CAD Post-Procedure Note Procedure Start Date: Jun 17, 2023 Name of Procedure: Left heart catheterization Findings/Procedure Note PROCEDURE NOTE: 67-year-old lady with history of paroxysmal atrial fibrillation, hypertension hyperlipidemia, had an abnormal stress test, cardiac catheterization was advised. After explaining the procedure to the patient, all pros and cons were explained, all questions were answered. The patient signed the consent and then she was placed in the cardiac catheterization laboratory. Groin was prepped in SL fashion local anesthesia was used. Sheath placed in the right radial artery, I had difficulty advancing the J-wire, used baby J-wire and advanced [place] catheter without success in engaging the coronaries, exchanged using long J-wire and use Jose left 3.5 and Jose right. The Jose right engage the right system and advanced to the left ventricular cavity and pressure was measured, At the end of the procedure the sheath was removed. Vascular band was used FINDINGS: Hemodynamics LV 106/8, end-diastolic pressure of 8 Aorta 118/66 mean of 89 ANATOMY: Left Main is free of obstructive disease Left Anterior Descending is slightly tortuous with no obstructive disease Left Circumflex is free of obstructive disease Right Coronary Artery is large dominant artery with no obstructive disease LV Gram was not done, pressure was measured CONCLUSION: Dominant right coronary system with no significant obstructive disease Normal left ventricular end-diastolic pressure DISCUSSION AND RECOMMENDATION: Abnormal stress test is probably due to extracardiac attenuation. Anesthesia Type: Conscious Sedation Estimated blood loss (mL): 25 ml Contrast Amount: 35 ml Total Radiation Dose: 570 mGy Post-Procedure Diagnosis Post-operative diagnosis: Chest pain Coronary artery disease Atrial fibrillation Hypertension KAYLEE ARREDONDO MD Jun 17, 2023 13:14
== END 2023-06-17 15:50 | disposition home or self-care (01) ==
LOC: CATH 08:47 → SDC 13:21 → CATH 15:50
PROVIDERS: ATTEND Internal Medicine Cardiovascular Disease
DX: I25.10 Atherosclerotic heart disease of native coronary artery without angina pectoris (principal); I08.3 Combined rheumatic disorders of mitral, aortic and tricuspid valves; I10 Essential (primary) hypertension; I65.23 Occlusion and stenosis of bilateral carotid arteries; R94.39 Abnormal result of other cardiovascular function study; I48.0 Paroxysmal atrial fibrillation; E78.5 Hyperlipidemia, unspecified; E11.9 Type 2 diabetes mellitus without complications; E03.9 Hypothyroidism, unspecified; Z87.01 Personal history of pneumonia (recurrent); Z79.899 Other long term (current) drug therapy; Z79.01 Long term (current) use of anticoagulants; Z86.718 Personal history of other venous thrombosis and embolism; Z87.891 Personal history of nicotine dependence; Z86.16 Personal history of COVID-19; Z79.890 Hormone replacement therapy; Z79.84 Long term (current) use of oral hypoglycemic drugs
CPT/HCPCS: 71045; 80053; 80061; 81000; 85027; 85610; 85730; 87081; 93005; 93458; C1769 ×2; C1894; 36415